=== PATIENT | female | born 1980 | race Caucasian/White ===

== ENCOUNTER 2024-02-09 12:54 | Outpatient (CLI) | payer MEDICARE, MEDICAID, SELFPAY | END 2024-02-09 12:55 | disposition home or self-care (01) | LOC: NFLDREF 02-13 05:50 | PROVIDERS: PCP Registered Nurse; Referring Provider Registered Nurse; Visit Provider Physician Assistant | DX: N39.0 Urinary tract infection, site not specified (principal); R35.0 Frequency of micturition | CPT/HCPCS: 87086; 87186 ==

== ENCOUNTER 2024-05-01 15:15 | Outpatient (RCR) | payer MEDICARE, MEDICAID, SELFPAY ==
--- NOTE | 2024-03-15 11:39 | OT.OPGNE2 ---
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 Date of Onset Medical/Functional History Medical History Reviewed Yes Prior Level of Function/Mobility Pt has been 06/09 supervision and assistance due to her congenital condition causing a baseline intellectual disability and low muscle tone . Prior Medical History Prior Medical History Pt moved from [facility], transferred documents refer to COVID infection in 2021, a lung mass in [address] scan. Autism and Myotonic Muscular Dystrophy are the dx driving the eval. 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 Objective Measures Shoulder Shoulder AROM shoulder flex to 90, passively ranged to 160, tight and not moving much. Cognitive Assessments Performed Oriented Patient oriented Person Vision/Hearing Vision Vision Changes Comments Dad reports Pt is fearful of walking over mady transitions, worries her depth perception is off. Pt holds paper up close to read. Balance Assessment Comments Balance Comments poor, uses walker but complains, uses transport chair when out of home. Assessment Assessment Assessment Pt is a 43 yr female who was referred to OT following new living situation after loss of her mother, and now living with father in [place]. PLOF unclear as father did not have much communication with her mother and Pt is unable to provide much history. Pt is currently max A for all bathing, dressing, toileting, etc, as well as dependent on caregivers for all IADLs. Pt has an intellectual disability , emotional, sweet and childlike, crying occasionally throughout session, giving hugs and affectionate touches. Pt very willing to participate and attentive during session. Pt able to state her name, birthday and write out her name and simple shapes when asked. Pt enjoys games, puzzles, books, and watching games shows. Pt uses a walker and transport WC for her main forms of mobility, doesn't walk farther than household distances and always with supervision. Pt is max A for bed mobility in her current basic bed and frame. Pt would benefit from skilled OT to address deficits. Occupational Therapy Treatment Plan - OP Potential Rehabilitation Potential Excellent Set Goals Goals Set with Patient No: with Dad Treatment Plan Treatment Plan Evaluation,Joint Mobilization, Manual Therapy,Therapeutic Exercise,Therapeutic Activities,Self-Care/Home Management,Caregiver Training, Education,Functional/Cognitive Skills Expected Frequency 1x Week Expected Duration 2-4 Weeks Certification Certification Statement I Certify That: Therapy Services Provided, Therapy Plan Established, Therapy Plan Reviewed Certification Information Clinic ID # [id number] Initial Certification Date 03/13/24 Recertification Due Date 06/11/24 Provider Signature Required Yes Provider Signature Shows Agreement With POC & Medical Necessity Physician NPI Number Write NPI# Here Physician Comment/Change Comment or Changes Physician Signature & Date Requested Please Sign/Date Here
== END 2024-05-29 14:55 | disposition home or self-care (01) ==
PROVIDERS: PCP Registered Nurse; Visit Provider Registered Nurse
DX: G71.11 Myotonic muscular dystrophy (principal); M43.6 Torticollis; Z74.1 Need for assistance with personal care; Z51.89 Encounter for other specified aftercare
CPT/HCPCS: 97110; 97116; 97140; 97162; 97166; 97530; 97535; X5282

== ENCOUNTER 2024-06-04 11:20 | Outpatient (CLI) | payer MEDICARE, MEDICAID, SELFPAY | END 2024-06-04 11:21 | disposition home or self-care (01) | PROVIDERS: PCP Registered Nurse; Visit Provider Registered Nurse | DX: G71.11 Myotonic muscular dystrophy (principal); R60.0 Localized edema | CPT/HCPCS: 80053; 83880 ==

== ENCOUNTER 2024-07-28 14:13 | Emergency (ER) | payer MEDICARE, MEDICAID, SELFPAY ==
[2024-07-28 14:26] VITALS: BP 131/89; PULSE 98; RESP 20; TEMP 36.3; O2SAT 90
--- NOTE | 2024-07-28 14:33 | ED_ITS ---
HPI - General Adult General Time Seen by Provider: 14:33 Date Seen: 07/28/24 Chief complaint: Diarrhea Stated complaint: Loose stools,vomiting, weakness Time Seen by Provider: 07/28/24 14:23 Source: patient, family and RN notes reviewed Mode of arrival: ambulatory Limitations: no limitations History of Present Illness HPI narrative: This 44-year-old female with intellectual disability and autism, underlying myotonic muscular dystrophy is brought in by her dad and stepmom with diarrhea, nausea vomiting and concern of dehydration. They when out to dinner night, overnight she started with vomiting and diarrhea. She had been able to take in about 3 oz of clear liquids but is now throwing that up. They have noticed no blood in the stool. Nobody else is sick at home. She has no recent antibiotic use, no history of C difficile. She historically is constipated with stools every 2-3 days. They do try to regulate with [id number] medicine and does seem to help. They do have concerns with her myotonic muscular dystrophy that she may be at higher risk for aspiration. She is not coughing. She did ask to lay down and take a nap today which is unusual. They are concerned that she has not been able to take any orals in and is getting dehydrated. She had 1 temperature of 99.8? but otherwise has not had any elevation of her temperature through this. She resides with her parents that are here. They have noted some occasional abdominal cramping but no complaints of any ongoing abdominal pain. Dad feels her belly always looks this distended, her step mom feels it is a little more bloated. Related Data Home Medications ?Medication ?Instructions ?Recorded ?Confirmed calcium carbonate (Tums) 200 mg PO QDAY 07/26/2407/15 psyllium husk 0.52 gram capsule 0.52 g PO QDAY 5 07/26/24 Previous Rx's ?Medication ?Instructions ?Recorded diaper,brief,adult,disposable #40 ea 01/13/24 (Fitted Briefs Medium) multivitamin with minerals-folic 1 tab PO QDAY #90 tab s 01/13/24 acid 120 mcg chewable tablet (Women's Multivitamin Gummies) Allergies Allergy/AdvReac Type Severity Reaction Status Date / Time panthenol Allergy Unknown Two Family Verified 07/28/24 16:49 Members Have Severe Allergy Review of Systems Status of ROS: Reports: 6 or more systems reviewed and unremarkable except as noted in History and below [facility] Medical History Chronic constipation ?K59.09 - Other constipation (ICD-10) Intellectual disability ?F79 - Unspecified intellectual disabilities (ICD-10) Autism ?F84.0 - Autistic disorder (ICD-10) Myotonic muscular dystrophy ?G71.11 - Myotonic muscular dystrophy (ICD-10) Pneumonia due to COVID-19 virus ?U07.1 - COVID-19 (ICD-10) ?J12.82 - Pneumonia due to coronavirus disease 2019 (ICD-10) Lung mass (06/18/21) ?R91.8 - Other nonspecific abnormal finding of lung field (ICD-10) Surgical History History of cataract surgery (2015) ?Z98.49 - Cataract extraction status, unspecified eye (ICD-10) History of local excision of skin lesion (06/21/23) ?Z98.890 - Other specified postprocedural states (ICD-10) Family History Paternal Grandfather Hx of CABG, Onset Age: 70 Breast cancer, Onset Age: 57 Paternal Grandmother Valvular heart disease, Onset Age: 75 Mother Myotonic muscular dystrophy Aunt Myotonic muscular dystrophy Aunt Myotonic muscular dystrophy Aunt Breast cancer, Onset Age: 55 Aunt Breast cancer, Onset Age: 55 Father Diabetes Social History Narrative: Single, lives with father and stepmom, disabled, no kids, mostly in wheelchair walks short distances with walker Nonsmoker No alcohol use No exercise What is your current living situation?: I have a place to live at present, but am concerned about future Problems where you live: no known problems In the past 12 months, utilities in danger of being shut off: no In past 12 months, lack of transportation kept you from medical appts, meetings, work, or getting things needed for daily living: no In the past 12 mos, have been you worried that your food would run out before you had money to buy more?: never true In the past 12 mos, the food you bought just didn't last and you didn't have money to buy more?: never true Smoking Status: Never smoker Do you use any of these nicotine containing products: None How often do you have a drink containing alcohol: never AUDIT-C Alcohol total score: 0 Non-prescribed substance use: denies use How often does anyone, including family, friends and others, physically hurt you : never How often does anyone, including family, friends and others, insult or talk down to you: never How often does anyone, including family, friends and others, threaten you with harm: never How often does anyone, including family, friends and others, scream or curse at you: never Health Related Social Needs: housing instability, housed, with risk of homelessness (Z59.811) Exam Const: Vital Signs, click to edit/add: Vital Signs - 24 hr 07/28/24 14:26 07/28/24 14:40 07/28/24 18:07 Temperature 97.3 F L 98.6 F Pulse Rate [Pulse Oximeter] 98 99 Respiratory Rate 20 18 Blood Pressure [Ri ght Upper Arm] 131/89 114/81 Pulse Oximetry 90 91 91 Oxygen Delivery Me thod Room Air Room Air 07/28/24 20:42 Temperature 99.3 F Pulse Rate [Pulse Oximeter] 98 Respiratory Rate 14 Blood Pressure [Ri ght Upper Arm] 105/63 Pulse Oximetry 91 Oxygen Delivery Me thod Room Air This 44-year-old female is alert, interactive, no apparent distress but anxious. Sclerae clear, is conversive, speech at baseline per parents. Lungs sound clear but has poor air entry. Certainly do not notice city tachypnea or accessory muscle use. CV regular rate and rhythm, no murmur, normal S1-S2, no S3-S4 heard. Abdomen seems mildly distended but does not seem to be tender, no rebound or guarding, no organomegaly noted. I really do not hear any bowel sounds. Documenting provider has reviewed patient's vital signs: yes Course Course ED Course: Stool specimen has already been provided, have ordered C difficile and stool cultures. We will get a portable chest x-ray to start, may need to do advanced imaging of both lungs and abdomen potentially. Parents and I discussed plain abdominal imaging with flat and upright verses moving to CT based on her lab results. Will place an IV, get appropriate labs and initiate IV fluids. Certainly infectious etiology like viral gastroenteritis needs to be considered. This could be something more significant like C difficile colitis or other colitis forms. Abdomen at this time does not seem to be tender, doubt surgical abdomen. Reevaluation(s) Time of Reevaluation #1: 15:47 Reevaluation #1: Reviewed that we will be proceeding with flat and upright imaging. If there is anything concerning there, they do understand that we may need to go with CT imaging. Her C difficile is negative, lactate and white blood count are normal. She is having some ongoing nausea, will order some Zofran. Her fluids have just been recently started. Time of Reevaluation #2: 16:29 Reevaluation #2: Reviewed with parents that her plain abdominal imaging is showing concerning bowel pattern. Will proceed with CT abdomen pelvis with IV contrast. Time of Reevaluation #3: 17:40 Reevaluation #3: Have reviewed CT findings including the incidental ovarian findings. This CT was not compared to the CT from 2021 with this left lung lesion was noted. In any event, she does have pneumonia which is likely aspiration. She has mechanical small-bowel obstruction. The understand that she should be hospitalized where there is multi-specialty care, should she require surgery she is not a candidate for us here. Will be initiating Zosyn. They would like to look at [facility] for transfer if possible; we did discuss the difficulty in finding facility acceptance due to capacity at outside institutions frequently. They understand that we will look to other organizations if [facility] has no capacity. Consultations Consultation #1: Reviewed this case with our surgeon on-call Dr. Soni. She agrees that this patient has complexities and comorbid conditions that we really should consider transfer. If patient were to be surgical, she is a very poor surgical candidate for us here. Time: 17:28 Consultation #2: Have reviewed this case with [facility] whom is taking triage for transfers. I will be speaking to general surgery. If General surgery accepts, we will talk to Yina again and patient will be transferred to [facility]. 6:17 p.m.: Did speak with general surgeon on-call Dr. Carranza at [facility]. We have reviewed the case, rationale for transfer. They do conceivably have higher level of care for anesthesia management, postoperative management if this should go that route. He does accept. Their transfer center will be contacting [facility] bai. Time: 18:08 Vital Signs Vital signs: Initial Vital Signs Temperature 97.3 F L 07/28/24 14:26 Temperature Source Temporal Artery Scan 07/28/24 14:26 Pulse Rate 98 07/28/24 14:26 Respiratory Rate 20 07/28/24 14:26 Blood Pressure 131/89 07/28/24 14:26 Blood Pressure Mean 103 07/28/24 14:26 Blood Pressure Position Supine 07/28/24 14:26 Pulse Oximetry 90 07/28/24 14:26 Oxygen Delivery Method Room Air 07/28/24 14:26 Vital Signs Temperature 97.3 F L 07/28/24 14:26 Pulse Rate 98 07/28/24 14:26 Respiratory Rate 20 07/28/24 14:26 Blood Pressure 131/89 07/28/24 14:26 Pulse Oximetry 90 07/28/24 14:26 Oxygen Delivery Method Room Air 07/28/24 14:26 Temperature 99.3 F 07/28/24 20:42 Pulse Rate 98 07/28/24 20:42 Respiratory Rate 14 07/28/24 20:42 Blood Pressure 105/63 07/28/24 20:42 Pulse Oximetry 91 07/28/24 20:42 Oxygen Delivery Method Room Air 07/28/24 20:42 Medications Administered Medications: Discontinued Medications Generic Name Dose Route Start Last Admin Trade Name Freq PRN Reason Stop Dose Admin Sodium Chloride 1,000 mls @ 500 mls/hr 07/28/24 14:41 07/28/24 18:37 0.9 % Sodium Chloride 1000 Ml IV 07/28/24 16:40 Infused .Q2H GAYLA Infusion Piperacillin Sod/Tazobactam 100 mls @ 200 mls/hr 07/28/24 17:40 07/28/24 18:38 Sod 3.375 gm/ Sodium Chloride IVPB 07/28/24 17:41 Infused ONCE ONE Infusion Ondansetron HCl 4 mg 07/28/24 15:49 07/28/24 16:01 Ondansetron 2 Mg/Ml Inj IVP 07/28/24 15:50 4 mg ONCE ONE Administration Medical Decision Making Lab Data Lab results reviewed: Yes I reviewed the patient's lab results Labs: Lab Results 07/28/24 07/28/24 Range/Units 14:43 15:02 WBC 10.75 (4.50-11.00) K/uL RBC 6.11 H (4.00-5.20) m/uL Hgb 18.0 H (12.0-16.0) gm/dL Hct 55.1 H (33.0-51.0) % MCV 90 (80-100) fL MCH 30 (26-34) pg MCHC 33 (32-36) gm/dL RDW Coeff of Calvin 13.6 (11.5-15.5) % Plt Count 293 (140-440) K/uL Neut % (Auto) 67.5 (42.0-72.0) % Lymph % (Auto) 14.6 L (20-44) % Curry % (Auto) 16.5 H (0.0-11.0) % Eos % (Auto) 0.5 (0.0-7.0) % Baso % (Auto) 0.2 (0.0-3.0) % Neut # (Auto) 7.27 H (1.7-7.0) K/uL Lymph # (Auto) 1.60 (0.90-2.90) K/uL Curry # (Auto) 1.80 H (0.00-0.90) K/UL Eos # (Auto) 0.05 (0.00-0.50) K/uL Baso # (Auto) 0.02 (0.00-0.30) K/uL Abs Immat Gran (auto) 0.07 (0.00-0.30) K/uL Imm/Tot Granulo (auto) 0.7 % Sodium 140 (135-149) mmol/L Potassium 3.6 (3.6-5.1) mmol/L Chloride 103 (96-114) mmol/L Carbon Dioxide 22 (20-32) mmol/L Anion Gap 15 (7-15) mEq/L BUN 26 H (5-24) mg/dL Creatinine 0.6 (0.5-1.5) mg/dL Estimated GFR 113 ml/min Glucose 147 H (60-115) mg/dL Lactate 1.5 (0.5-1.9) mmol/L Calcium 9.4 (8.4-10.6) mg/dL Total Bilirubin 1.0 (0.1-1.5) mg/dL AST 33 (12-35) U/L ALT 48 H (4-35) U/L Alkaline Phosphatase 122 (40-150) U/L C-Reactive Protein 2.2 H (0.5-1.0) mg/dL Total Protein 8.6 H (6.0-8.3) g/dL Albumin 4.8 (3.3-5.0) g/dL Stl C. diff Tox B Gene Negative (Negative) Stl C. diff [id number] PRESUMPTIVE NEGATIVE (Negative) Imaging Data Chest x-ray: Attestation: I have reviewed the pertinent imaging results. Radiologist's impression: Patient: JERROD SIMPSON Facility:?[facility] Patient ID:?[id number] Site Patient ID:?[id number]. Site :?1980 Study:?XRay-Chest PORTABLE-07/28/2024 2:52:38 PM Ordering Physician:Omar Sood Final Report: INDICATION: Nausea/vomiting TECHNIQUE: Chest 1 view COMPARISON: 06/18/2021 FINDINGS: Cardiovascular and mediastinum: Heart size and vasculature are normal in caliber and appearance. Lungs and pleural spaces: Lungs are clear. No sign of infiltrate or mass. No sign of pleural effusion. No pneumothorax. Bones and soft tissues: No significant findings. IMPRESSION: No acute findings. Chronic mild atelectasis left lower lobe. Dictated by Javier Horan MD @ 07/28/2024 3:19:47 PM (Electronic Signature) Abdominal x-ray: Attestation: I have reviewed the pertinent imaging results. My impression: My visualization of her abdominal imaging shows air-fluid levels, some dilated central small bowel, feel the pattern is concerning. Did ask nursing staff to not give patient ice chips based on review of this. Await Radiology over-read. Radiologist's impression: Patient: JERROD SIMPSON Facility:?[facility] Patient ID:?[id number] Site Patient ID:?[id number]. Site :?1980 Study:?XRay-Abdomen/Pelvis FLAT AND UPRIGHT-07/28/2024 4:02:02 PM Ordering Physician:?Vane Sood Final Report: INDICATION: Nausea, vomiting, diarrhea. TECHNIQUE: Abdomen and pelvis 2 view(s) COMPARISON: None. FINDINGS/IMPRESSION: Multiple dilated loops of small bowel throughout the abdomen with air-fluid levels, concerning for small bowel obstruction. No evidence of pneumoperitoneum. Patchy opacities in the left lung base, may reflect atelectasis versus pneumonia. Multilevel degenerative changes of the visualized spine. Dictated by Josr Hernandez MD @ 07/28/2024 4:21:03 PM (Electronic Signature) CT scan - abdomen: Attestation: I have reviewed the pertinent imaging results. Radiologist's impression: Patient: JERROD SIMPSON Facility:?[facility] Patient ID:?[id number] Site Patient ID:?[id number]. Site :?1980 Study:?XRay-Abdomen/Pelvis FLAT AND UPRIGHT-07/28/2024 4:02:02 PM Ordering Physician:?Vane Sood Final Report: INDICATION: Nausea, vomiting, diarrhea. TECHNIQUE: Abdomen and pelvis 2 view(s) COMPARISON: None. FINDINGS/IMPRESSION: Multiple dilated loops of small bowel throughout the abdomen with air-fluid levels, concerning for small bowel obstruction. No evidence of pneumoperitoneum. Patchy opacities in the left lung base, may reflect atelectasis versus pneumonia. Multilevel degenerative changes of the visualized spine. Dictated by Josr Hernandez MD @ 07/28/2024 4:21:03 PM (Electronic Signature) Discharge Plan Discharge Clinical Impression: SBO (small bowel obstruction), Aspiration pneumonia, Myotonic muscular dystrophy Patient Disposition: [facility] Discharge Location: [facility] Condition: Unchanged
[2024-07-28 14:40] VITALS: O2SAT 91
--- NOTE | 2024-07-28 14:40 | CRLHL7_ITS ---
For Patients: As a result of the Cures Act, medical imaging exams and procedure reports are released immediately into your electronic medical record. You may view this report before your referring provider. If you have questions, please contact your health care provider. INDICATION: Nausea/vomiting TECHNIQUE: Chest 1 view COMPARISON: 06/18/2021 FINDINGS: Cardiovascular and mediastinum: Heart size and vasculature are normal in caliber and appearance. Lungs and pleural spaces: Lungs are clear. No sign of infiltrate or mass. No sign of pleural effusion. No pneumothorax. Bones and soft tissues: No significant findings. IMPRESSION: No acute findings. Chronic mild atelectasis left lower lobe. Dictated by Javier Horan MD @ 07/28/2024 3:19:47 PM (Electronically Signed)
[2024-07-28 15:13] LABS: Lactate* 1.5 mmol/L (0.5-1.9)
[2024-07-28 15:16] LABS: Basophils Absolute Auto 0.02 K/uL (0.00-0.30); Basophils Percent Auto 0.2 % (0.0-3.0); Eosinophils Absolute Auto 0.05 K/uL (0.00-0.50); Eosinophils Percent Auto 0.5 % (0.0-7.0); Hematocrit 55.1 % (33.0-51.0); Immature Granulocytes Abs Auto 0.07 K/uL (0.00-0.30); Immature Granulocytes Pct Auto 0.7 %; Lymphocytes Percent Auto 14.6 % (20-44); Mean Corpuscular HGB Conc 33 gm/dL (32-36); Mean Corpuscular Hemoglobin 30 pg (26-34); Mean Corpuscular Volume 90 fL (80-100); Monocytes Percent Auto 16.5 % (0.0-11.0); Neutrophils Absolute Auto 7.27 K/uL (1.7-7.0); Neutrophils Percent Auto 67.5 % (42.0-72.0); Platelet Count* 293 K/uL (140-440); RDW Coefficient of Variation % 13.6 % (11.5-15.5); Red Blood Count 6.11 m/uL (4.00-5.20); White Blood Count* 10.75 K/uL (4.50-11.00)
[2024-07-28 15:26] LABS: Slide Review Reflex No
[2024-07-28 15:28] LABS: Chloride* 103 mmol/L (96-114)
[2024-07-28 15:29] LABS: Albumin* 4.8 g/dL (3.3-5.0); Potassium* 3.6 mmol/L (3.6-5.1); Sodium* 140 mmol/L (135-149)
[2024-07-28 15:32] LABS: Alanine Aminotransferase* 48 U/L (4-35); Alkaline Phosphatase* 122 U/L (40-150); Anion Gap 15 mEq/L (7-15); Aspartate Amino Transferase* 33 U/L (12-35); Blood Urea Nitrogen* 26 mg/dL (5-24); Carbon Dioxide* 22 mmol/L (20-32); Creatinine* 0.6 mg/dL (0.5-1.5); Estimated Glomerular Filt Rate 113 ml/min; Total Protein* 8.6 g/dL (6.0-8.3)
[2024-07-28 15:33] LABS: Calcium* 9.4 mg/dL (8.4-10.6); Glucose* 147 mg/dL (60-115)
[2024-07-28 15:35] LABS: C Reactive Protein* 2.2 mg/dL (0.5-1.0)
[2024-07-28 15:40] LABS: C.Difficile Negative (Negative); CDIFFEPI 027 PRESUMPTIVE NEGATIVE (Negative)
--- NOTE | 2024-07-28 15:44 | CRLHL7_ITS ---
For Patients: As a result of the Century Cures Act, medical imaging exams and procedure reports are released immediately into your electronic medical record. You may view this report before your referring provider. If you have questions, please contact your health care provider. INDICATION: Nausea, vomiting, diarrhea. TECHNIQUE: Abdomen and pelvis 2 view(s) COMPARISON: None. FINDINGS/IMPRESSION: Multiple dilated loops of small bowel throughout the abdomen with air-fluid levels, concerning for small bowel obstruction. No evidence of pneumoperitoneum. Patchy opacities in the left lung base, may reflect atelectasis versus pneumonia. Multilevel degenerative changes of the visualized spine. Dictated by Josr Hernandez MD @ 07/28/2024 4:21:03 PM (Electronically Signed)
[2024-07-28] MEDS: 0.9 % SODIUM CHLORIDE 1000 ml 1,000 ML 500 ML IV (15:45)
[2024-07-28] MEDS: ONDANSETRON 2 MG/ML inj 4 MG IVP (16:01)
--- NOTE | 2024-07-28 16:30 | CRLHL7_ITS ---
For Patients: As a result of the Century Cures Act, medical imaging exams and procedure reports are released immediately into your electronic medical record. You may view this report before your referring provider. If you have questions, please contact your health care provider. INDICATION: Nausea vomiting and diarrhea. Abdominal pain. TECHNIQUE: Multiplanar CT examination of the abdomen and pelvis was performed after the administration of 69 mL Isovue 370 intravenous contrast. COMPARISON: Same day abdominal radiographs. FINDINGS: Lower chest: Normal heart size. No pleural effusions or pneumothorax. 2.1 cm left lower lobe mass. Pulmonary vascular congestion. Left lower lobe focal consolidation and tree-in-bud nodularity. Small hiatal hernia. Liver: Diffuse hepatic steatosis. Gallbladder: Cholelithiasis. No gallbladder wall thickening. Biliary: Unremarkable. Pancreas: Within normal limits. Spleen: Unremarkable. Adrenal glands: Unremarkable. Renal/ureters/bladder: Normal in size and symmetrically enhancing. No obstructive uropathy. No hydronephrosis or obstructive urinary calculi. Bilateral renal hypodensities, most of which are too small to characterize, probable simple renal cysts. The ureters appear unremarkable. The bladder is within normal limits. Pelvis: 6.6 x 5.3 cm left adnexal soft tissue mass, appears separate from the adjacent uterus. Simple appearing 5.0 cm right ovarian cyst. Gastrointestinal: There are dilated loops of small bowel with air-fluid levels, measuring up to 3.4 cm, with a suspected transition point in the mid abdomen (2:57). Mild wall hyperenhancement. No pneumatosis intestinalis. Normal appendix. No significant colonic diverticulosis. Mild colonic stool burden. Vasculature: No aortic aneurysm. The portal vein remains patent. No significant atherosclerotic calcifications. No portal venous gas. Lymph nodes: No pathologic lymphadenopathy by size criteria. Peritoneum: No free fluid or pneumoperitoneum. No drainable fluid collections. Abdominal wall/soft tissues: Unremarkable. Degenerative changes of the visualized thoracolumbar spine. Bones: No acute osseous abnormalities. IMPRESSION: 1. Findings concerning for a mechanical small bowel obstruction, with a suspected transition point in the mid abdomen. No pneumatosis intestinalis, portal venous gas or pneumoperitoneum. 2. Suspected left lower lobe pneumonia. 3. Left lower lobe pulmonary mass, indeterminate on this nondedicated examination, measuring 2.1 cm. Consider follow-up with a dedicated contrast-enhanced CT chest in 6-8 weeks, or following the completion of treatment for the patient`s suspected pneumonia, to assess stability or resolution. PET-CT and histologic tissue analysis may also be considered. 4. 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 Right ovarian cystic lesion measuring 5.0 cm. Recommend further evaluation with a nonemergent, outpatient contrast-enhanced pelvic MRI for improved characterization. Please note that all CT scans at this facility use dose modulation, iterative reconstruction, and/or weight-based dosing when appropriate to reduce radiation dose to as low as reasonably achievable. Dictated by Uche Agudelo MD @ 07/28/2024 5:25:05 PM (Electronically Signed)
[2024-07-28] MEDS: PIPERACILLIN/TAZOBACTAM 3.375 GM in 0.9 % SODIUM CHLORIDE Mini-bag 100 ML IVPB (17:56)
[2024-07-28 18:07] VITALS: BP 114/81; PULSE 99; RESP 18; TEMP 37; O2SAT 91
[2024-07-28 20:42] VITALS: BP 105/63; PULSE 98; RESP 14; TEMP 37.4; O2SAT 91
== END 2024-07-28 20:44 | disposition short-term general hospital (02) ==
PROVIDERS: Emergency Provider Family Medicine; PCP Family Medicine
DX: J69.0 Pneumonitis due to inhalation of food and vomit (principal); K56.609 Unspecified intestinal obstruction, unspecified as to partial versus complete obstruction; G71.11 Myotonic muscular dystrophy
CPT/HCPCS: 36415; 71045; 74019; 74177; 80053; 83605; 85025; 86140; 87045; 87046; 87427; 87493; 94761; 96365; 96375; 99285; J2405; J2543; J7030; Q9967

== ENCOUNTER 2024-07-28 20:35 | Outpatient (CLI) | payer MEDICARE, MEDICAID, SELFPAY | END 2024-07-28 20:36 | disposition home or self-care (01) | LOC: AMB 08-01 11:44 | PROVIDERS: PCP Family Medicine; Visit Provider Family Medicine | DX: R19.7 Diarrhea, unspecified (principal); R11.10 Vomiting, unspecified | CPT/HCPCS: A0425; A0429 ==

== ENCOUNTER 2024-08-12 15:47 | Emergency (ER) | payer MEDICARE, MEDICAID, SELFPAY ==
--- OUTSIDE RECORDS SUMMARY | 2024-07-28 21:10 | XMS_ITS | Encounter Summary ---
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 99.5 ??F (37.5 ??C) Temp src: Oral BP: 103/55 Pulse: 88 Resp: 16 SpO2: 93 % O2 Device: None (Room air) Oxygen Delivery: 1 LPM Vitals: 07/28/24 2124 Weight: 63 kg (138 lb 14.2 oz) Vital Signs with Ranges Temp: [96.9 ??F (36.1 ??C)-99.5 ??F (37.5 ??C)] 99.5 ??F (37.5 ??C) Pulse: [69-88] 88 Resp: [15-18] 16 BP: (103-136)/(54-66) 103/55 SpO2: [91 %-96 %] 93 % I/O last 3 completed shifts: In: 769 [P.O.:180; I.V.:589] Out: - GEN: Alert, awake, appears comfortable, NAD. HEENT: Normocephalic/atraumatic, no scleral icterus, no nasal discharge, mouth moist. CV: Regular rate and rhythm, no murmur or JVD. S1 + S2 noted, no S3 or S4. LUNGS: Clear to auscultation bilaterally without rales/rhonchi/wheezing/retractions. Symmetric chest rise on inhalation noted. ABD: Active bowel sounds, soft, non-tender/non-distended. No rebound/guarding/rigidity. EXT: No edema or cyanosis. Hands/feet warm to touch with good signs of peripheral perfusion. No joint synovitis noted. SKIN: Dry to touch, no exanthems noted in the visualized areas. NEURO: Symmetric muscle strength, sensation to touch grossly intact. No new focal deficits appreciated. Medications Current Facility-Administered Medications Medication Dose Route Frequency Provider Last Rate Last Admin Current Facility-Administered Medications Medication Dose Route Frequency Provider Last Rate Last Admin piperacillin-tazobactam (ZOSYN) 3.375 g vial to attach to NS 100 mL bag 3.375 g Intravenous Q6H Toby Finch MD 3.375 g at 08/02/24 1222 sodium chloride (PF) 0.9% PF flush 3 mL 3 mL Intracatheter Q8H Toby Wright MD 3 mL at 08/02/24 1222 Data Recent Labs Lab 08/02/24 0715 08/01/24200708/01/24 1008 07/30/24 1701 07/30/24 0809 07/30/24 0209 07/29/24 0738 WBC 17.8* -- 18.5* -- 9.8 -- 7.6 HGB 15.1 -- 15.2 -- 15.5 -- 16.6* MCV 86 -- 88 -- 91 -- 92 PLT 249 -- 228 -- 266 -- 250 NA -- -- 139 -- 155* -- 146* POTASSIUM 4.0 4.5 3.4 < > 3.4 3.4 < > 2.9* CHLORIDE -- -- 109* -- 116* -- 107 CO2 -- -- 22 -- 23 -- 22 BUN -- -- 3.5* -- 15.1 -- 16.6 CR -- -- 0.30* -- 0.39* -- 0.46* ANIONGAP -- -- 8 -- 16* -- 17* CELINA -- -- 8.2* -- 9.1 -- 8.7* GLC -- -- 78 -- 127* -- 148* ALBUMIN -- -- -- -- -- -- 3.5 < > = values in this interval not displayed. No results found for this or any previous visit (from the past 24 hours). * Frantz Crespo MD - 08/02/2024 9:27 AM CDT [facility] General Surgery Progress Note Assessment and Plan: Assessment: Sabine Olmos is a 44 year old female presented with nausea and vomiting. Abd CT was concerning for ileus vs small bowel obstruction. Also showed left lower pneumonia. - GG challenge shows contrast into colon Plan: Continue conservative management Regular diet No surgical intervention at this time, surgery will sign off, call if any questions. Agree; is up in chair tolerating solids, no surgical issues, let us know if we can be of assistance. Interval History: Pt awake, no family present. Denies pain. Was able to eat some regular food yesterday. Continues tohave bowel movements Physical Exam: Temp: 99.5 ??F (37.5 ??C) Temp src: Oral BP: 103/55 Pulse: 88 Resp: 16 SpO2: 93 % O2 Device: None (Room air) Oxygen Delivery: 1 LPM I/O last 3 completed shifts: In: 769 [P.O.:180; I.V.:589] Out: - Constitutional: awake, no distress Abdomen: non tender Data: Data Recent Labs Lab 08/02/24 0715 08/01/24200708/01/24 1008 07/30/24 1701 07/30/24 0809 07/30/24 0209 07/29/24 0738 WBC 17.8* -- 18.5* -- 9.8 -- 7.6 HGB 15.1 -- 15.2 -- 15.5 -- 16.6* MCV 86 -- 88 -- 91 -- 92 PLT 249 -- 228 -- 266 -- 250 NA -- -- 139 -- 155* -- 146* POTASSIUM 4.0 4.5 3.4 < > 3.4 3.4 < > 2.9* CHLORIDE -- -- 109* -- 116* -- 107 CO2 -- -- 22 -- 23 -- 22 BUN -- -- 3.5* -- 15.1 -- 16.6 CR -- -- 0.30* -- 0.39* -- 0.46* ANIONGAP -- -- 8 -- 16* -- 17* CELINA -- -- 8.2* -- 9.1 -- 8.7* GLC -- -- 78 -- 127* -- 148* ALBUMIN -- -- -- -- -- -- 3.5 < > = values in this interval not displayed. Jacey Fontenot PA-C [facility] Text page: [phone] 8-4 pm After 4 pm call [phone] * Harley Lee, PT - 08/01/2024 4:05 PM CDT 08/01/24 4270 Appointment Info Signing Clinician's Name / Credentials (PT) Harley Lee DPT Living Environment Living Environment Comments Pt lives in home with parents, ramp to enter. Mother reports use of FWWfor short distance mobility, use of w/c for majority of the day. All needs on main level. 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 Existing Precautions/Restrictions fall Cognition Affect/Mental Status (Cognition) unable/difficult to assess Orientation Status (Cognition) refused to attempt Follows Commands (Cognition) physical/tactile prompts required;repetition of directions required;verbal cues/prompting required Behavioral Issues uncooperative;other (see comments) (mother reports this is baseline for patient) Pain Assessment Patient Currently in Pain No Range of Motion (ROM) ROM Comment B LE WFL Strength (Manual Muscle Testing) Strength Comments functionally demonstrated >3/5 B LE strength Bed Mobility Comment, (Bed Mobility) [place] rolling, supine to sit transfer Transfers Comment, (Transfers) CGA with FWW Gait/Stairs (Locomotion) Distance in Feet (Gait) 12 Pattern (Gait) step-through Deviations/Abnormal Patterns (Gait) base of support, wide;gait speed decreased;stride length decreased Comment, (Gait/Stairs) CGA with FWW Balance Balance Comments good sitting; fair+ standing with FWW Clinical Impression Criteria for Skilled Therapeutic Intervention Yes, treatment indicated PT Diagnosis (PT) decreased functional mobility Influenced by the following impairments decreased activity tolerance, balance Functional limitations due to impairments impaired bed mobility, transfers, ambulation Clinical Presentation (PT Evaluation Complexity) stable Clinical Presentation Rationale Clinical judgement Clinical Decision Making (Complexity) low complexity Planned Therapy Interventions (PT) balance training;bed mobility training;gait training;home exercise program;patient/family education;postural re- education;strengthening;transfer training;progressive activity/exercise;wheelchair management/propulsion training Risk & Benefits of therapy have been explained evaluation/treatment results reviewed;care plan/treatment goals reviewed;current/potential barriers reviewed;risks/benefits reviewed;participants voiced agreement with care plan;participants included;patient;mother PT Total Evaluation Time PT Eval, Low Complexity Minutes ([id number]) 10 Physical Therapy Goals PT Frequency Daily PT Predicted Duration/Target Date for Goal Attainment 08/03/24 PT Goals Bed Mobility;Transfers;Gait;Wheelchair Mobility PT: Bed Mobility Supervision/stand-by assist;Supine to/from sit PT: Transfers Supervision/stand-by assist;Sit to/from stand;Assistive device PT: Gait Supervision/stand-by assist;Assistive device;50 feet PT: Wheelchair Mobility 50 feet;Caregiver Min assist;manual wheelchair PT Discharge Planning PT Plan progress ind with transfers, inc ambulation distance as able; w/c mobility if present PT Discharge Recommendation (DC Rec) home with assist;home with home care physical therapy PT Rationale for DC Rec Anticipate pt to discharge home with support from family, currently Ax1 with FWW for short distance activity. Pt would benefit from HHPT if family interested referral. PT Brief overview of current status Ax1 with FWW PT Total Distance Amb During Session (feet) 30 Physical Therapy Time and Intention Total Session Time (sum of timed and untimed services) 10 * José Luis Valderrama MD - 08/01/2024 1:20 PM CDT [facility] Hospitalist Progress Note Provider : José Luis Valderrama MD, MD Date of Service (when I saw the patient): 08/01/2024 Assessment & Plan Sabine Olmos is a 44 year old female admitted on 07/28/2024. 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 She was sent to the ED at outside facility for nausea and vomiting. Parents report that patient started throwing up 2 nights ago. They report about 8 episodes of nonbloody nonbilious emesis.He also reports that patient has had diarrhea since that time. They report the patient typically has a bowel movement every other day with a chunk of hard stool. They were concerned the patient was getting dehydrated so they sent patient to the ED at outside facility. At outside facility, CT vital signs were fairly unremarkable except for O2 saturation of 90% on room air. CBC was unremarkable. CMP was also unremarkable. CRP was 2.25. X-ray of the abdomen showed multiple dilated loops of small bowel throughout the abdomen with air-fluid levels concerning for small bowel obstruction. CT confirmed mechanical small bowel obstruction with suspected transition point in the mid abdomen with no pneumatosis intestinalis, portal venous gas, or pneumoperitoneum. CT also showed suspected left lower lobe pneumonia. Also showed left lower lobe pulmonary mass measuring about 2.1 cm. Also showed left ovarian soft tissue mass measuring 6.6 cm. There was also a right ovarian cystic lesion measuring 5.0cm. Patient was admitted and managed conservatively. Patient denies any pain. Nausea/vomiting/diarrhea likely due to enteritis -Patient with nausea and vomiting and diarrhea. Presented to outside facility due to concern for dehydration. CT showing mechanical small bowel obstruction with suspected transition point in the mid abdominal. Patient feeling better. -Patient improving with conservative management -Diet advanced to regular diet today -Will consult PT -Likely discharge tomorrow Probable aspiration pneumonia: Patient with left lower lobe infiltrate concerning for pneumonia. Inthe context of recurrent nausea and vomiting. -Continue Zosyn. Day #4 Left lower lobe mass: Patient with finding of 2.1 cm left lower lobe mass on CT. Left ovarian soft tissue mass measuring 6.6 cm: Noted on CT -Outpatient follow-up with further imaging. 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 -Fall precautions Autism Baseline cognitive impairment Frequent reorientation Fall precautions Diet: clear liquid diet DVT Prophylaxis: Pneumatic Compression Devices Boyce Catheter: Not present Lines: None Cardiac Monitoring: None Code Status: Full Code Code Status: Full Code Medically Ready for Discharge: Anticipated in 2-4 Days José Luis Valderrama MD Interval History Patient seen and examined. Chart reviewed. Also discussed with patient's dad at bedside. Patient unable to provide reliable history. Per her dad, patient doing okay. Tolerating diet. -Data reviewed today: I reviewed all new labs and imaging results over the last 24 hours. I personally reviewed Physical Exam Temp: 98.6 ??F (37 ??C) Temp src: Axillary BP: 129/66 Pulse: 74 Resp: 18 SpO2: 92 % O2 Device: None(Room air) Oxygen Delivery: 1 LPM Vitals: 07/28/242123 Weight: 63 kg (138 lb 14.2 oz) Vital Signs with Ranges Temp: [98.2 ??F (36.8 ??C)-98.6 ??F (37 ??C)] 98.6 ??F (37 ??C) Pulse: [70-74] 74 Resp: [16-18] 18 BP: (115-137)/(63-75) 129/66 SpO2: [92 %-94 %] 92 % I/O last 3 completed shifts: In: 2140 [P.O.:940; I.V.:1200] Out: - GEN: Alert, awake, appears comfortable, NAD. HEENT: Normocephalic/atraumatic, no scleral icterus, no nasal discharge, mouth moist. CV: Regular rate and rhythm, no murmur or JVD. S1 + S2 noted, no S3 or S4. LUNGS: Clear to auscultation bilaterally without rales/rhonchi/wheezing/retractions. Symmetric chest rise on inhalation noted. ABD: Active bowel sounds, soft, non-tender/non-distended. No rebound/guarding/rigidity. EXT: No edema or cyanosis. Hands/feet warm to touch with good signs of peripheral perfusion. No joint synovitis noted. SKIN: Dry to touch, no exanthems noted in the visualized areas. NEURO: Symmetric muscle strength, sensation to touch grossly intact. No new focal deficits appreciated. Medications Current Facility-Administered Medications Medication Dose Route Frequency Provider Last Rate Last Admin lactated ringers infusion Intravenous Continuous Toby Finch MD 100 mL/hr at 06/18/25 0534 New Bag at 08/01/24 0534 Current Facility-Administered Medications Medication Dose Route Frequency Provider Last Rate Last Admin piperacillin-tazobactam (ZOSYN) 3.375 g vial to attach to NS 100 mL bag 3.375 g Intravenous Q6H Toby Finch MD 3.375 g at 08/01/24 1155 potassium chloride 10 mEq in 100 mL sterile water infusion 10 mEq Intravenous Q1H José Luis Valderrama MD 100 mL/hr at 08/01/24 1319 10 mEq at 08/01/24 1319 sodium chloride (PF) 0.9% PF flush 3 mL 3 mL Intracatheter Q8H [facility] Toby Finch MD 3 mL at 08/01/24 0533 Data Recent Labs Lab 08/01/24 1008 07/31/24 0212 07/30/24 1701 07/30/24 0809 07/30/24 0209 07/29/24 0738 WBC 18.5* -- -- 9.8 -- 7.6 HGB 15.2 -- -- 15.5 -- 16.6* MCV 88 -- -- 91 -- 92 PLT 228 -- -- 266 -- 250 NA 139 -- -- 155* -- 146* POTASSIUM 3.4 4.8 3.1* 3.4 3.4 < > 2.9* CHLORIDE 109* -- -- 116* -- 107 CO2 22 -- -- 23 -- 22 BUN 3.5* -- -- 15.1 -- 16.6 CR 0.30* -- -- 0.39* -- 0.46* ANIONGAP 8 -- -- 16* -- 17* CELINA 8.2* -- -- 9.1 -- 8.7* GLC 78 -- -- 127* -- 148* ALBUMIN -- -- -- -- -- 3.5 < > = values in this interval not displayed. No results found for this or any previous visit (from the past 24 hours). * Jacey Fontenot PA-C - 08/01/2024 9:46 AM CDT [facility] General Surgery Progress Note Assessment and Plan: Assessment: Sabine Olmos is a 44 year old female presented with nausea and vomiting. Abd CT was concerning for ileus vs small bowel obstruction. Also showed left lower pneumonia. - GG challenge shows contrast into colon Plan: Continue conservative management Trial regular diet No surgical intervention at this time Interval History: Pt sleeping, father at bedside. Discussed care with father, who reports yesterday went well. She was tolerating full liquids, wanting more food choices. She has had several loose stools, some incontinent. No pain, no nausea or vomiting. Physical Exam: Temp: 98.6 ??F (37 ??C) Temp src: Axillary BP: 129/66 Pulse: 74 Resp: 18 SpO2: 93 % O2 Device: Nasal cannula Oxygen Delivery: 1 LPM I/O last 3 completed shifts: In: 2140 [P.O.:940; I.V.:1200] Out: - Constitutional: sleeping Abdomen: not examined Data: Data Recent Labs Lab 07/31/24 0212 07/30/24 1701 07/30/24 0809 07/30/24 0209 07/29/24 0738 WBC -- -- 9.8 -- 7.6 HGB -- -- 15.5 -- 16.6* MCV -- -- 91 -- 92 PLT -- -- 266 -- 250 NA -- -- 155* -- 146* POTASSIUM 4.8 3.1* 3.4 3.4 < > 2.9* CHLORIDE -- -- 116* -- 107 CO2 -- -- 23 -- 22 BUN -- -- 15.1 -- 16.6 CR -- -- 0.39* -- 0.46* ANIONGAP -- -- 16* -- 17* CELINA -- -- 9.1 -- 8.7* GLC -- -- 127* -- 148* ALBUMIN -- -- -- -- 3.5 < > = values in this interval not displayed. Jacey Fontenot PA-C [facility] Text page: [phone] 8-4 pm After 4 pm call [phone] * José Luis Valderrama MD - 07/31/2024 11:00 AM CDT [facility] Hospitalist Progress Note Provider : José Luis Valderrama MD, MD Date of Service (when I saw the patient): 07/31/2024 Assessment & Plan Sabine Olmos is a 44 year old female admitted on 07/28/2024. 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 She was sent to the ED at outside facility for nausea and vomiting. Parents report that patient started throwing up 2 nights ago. They report about 8 episodes of nonbloody nonbilious emesis.He also reports that patient has had diarrhea since that time. They report the patient typically has a bowel movement every other day with a chunk of hard stool. They were concerned the patient was getting dehydrated so they sent patient to the ED at outside facility. At outside facility, CT vital signs were fairly unremarkable except for O2 saturation of 90% on room air. CBC was unremarkable. CMP was also unremarkable. CRP was 2.25. X-ray of the abdomen showed multiple dilated loops of small bowel throughout the abdomen with air-fluid levels concerning for small bowel obstruction. CT confirmed mechanical small bowel obstruction with suspected transition point in the mid abdomen with no pneumatosis intestinalis, portal venous gas, or pneumoperitoneum. CT also showed suspected left lower lobe pneumonia. Also showed left lower lobe pulmonary mass measuring about 2.1 cm. Also showed left ovarian soft tissue mass measuring 6.6 cm. There was also a right ovarian cystic lesion measuring 5.0cm. Patient was admitted and managed conservatively. Patient denies any pain. Nausea/vomiting/diarrhea likely due to enteritis -Patient with nausea and vomiting and diarrhea. Presented to outside facility due to concern for dehydration. CT showing mechanical small bowel obstruction with suspected transition point in the mid abdominal. Patient feeling better. -Patient was managed conservatively with IVF, NPO, pain management -Gastrografin challenge done yesterday and showing contrast in the colon -Diet advanced to full liquid today per general surgery. Probable aspiration pneumonia: Patient with left lower lobe infiltrate concerning for pneumonia. Inthe context of recurrent nausea and vomiting. -Continue Zosyn. Day #3 Left lower lobe mass: Patient with finding of 2.1 cm left lower lobe mass on CT. Left ovarian soft tissue mass measuring 6.6 cm: Noted on CT -Outpatient follow-up with further imaging. 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 -Fall precautions Autism Baseline cognitive impairment Frequent reorientation Fall precautions Diet: clear liquid diet DVT Prophylaxis: Pneumatic Compression Devices Boyce Catheter: Not present Lines: None Cardiac Monitoring: None Code Status: Full Code Code Status: Full Code Medically Ready for Discharge: Anticipated in 2-4 Days José Luis Valderrama MD Interval History Patient seen and examined. Chart reviewed. Patient unable to provide reliable history due to her cognitive impairment. -Data reviewed today: I reviewed all new labs and imaging results over the last 24 hours. I personally reviewed Physical Exam Temp: 98.2 ??F (36.8 ??C) Temp src: Axillary BP: 133/71 Pulse: 71 Resp: 16 SpO2: 96 % O2 Device: Nasal cannula Oxygen Delivery: 1 LPM Vitals: 07/28/242123 Weight: 63 kg (138 lb 14.2 oz) Vital Signs with Ranges Temp: [97.9 ??F (36.6 ??C)-98.8 ??F (37.1 ??C)] 98.2 ??F (36.8 ??C) Pulse: [71-87] 71 Resp: [16-18] 16 BP: (124-133)/(63-73) 133/71 SpO2: [93 %-96 %] 96 % No intake/output data recorded. GEN: Alert, awake, appears comfortable, NAD. HEENT: Normocephalic/atraumatic, no scleral icterus, no nasal discharge, mouth moist. CV: Regular rate and rhythm, no murmur or JVD. S1 + S2 noted, no S3 or S4. LUNGS: Clear to auscultation bilaterally without rales/rhonchi/wheezing/retractions. Symmetric chest rise on inhalation noted. ABD: Active bowel sounds, soft, non-tender/non-distended. No rebound/guarding/rigidity. EXT: No edema or cyanosis. Hands/feet warm to touch with good signs of peripheral perfusion. No joint synovitis noted. SKIN: Dry to touch, no exanthems noted in the visualized areas. NEURO: Symmetric muscle strength, sensation to touch grossly intact. No new focal deficits appreciated. Medications Current Facility-Administered Medications Medication Dose Route Frequency Provider Last Rate Last Admin lactated ringers infusion Intravenous Continuous Toby Finch MD 100 mL/hr at 07/30/241952 Rate Verify at 07/30/241952 Current Facility-Administered Medications Medication Dose Route Frequency Provider Last Rate Last Admin piperacillin-tazobactam (ZOSYN) 3.375 g vial to attach to NS 100 mL bag 3.375 g Intravenous Q6H Toby Finch MD 3.375 g at 07/31/24 0533 sodium chloride (PF) 0.9% PF flush 3 mL 3 mL Intracatheter Q8H [facility] Toby Finch MD 3 mL at 07/31/24 0533 Data Recent Labs Lab 07/31/24 0212 07/30/24 1701 07/30/24 0809 07/30/24 0209 07/29/24 0738 WBC -- -- 9.8 -- 7.6 HGB -- -- 15.5 -- 16.6* MCV -- -- 91 -- 92 PLT -- -- 266 -- 250 NA -- -- 155* -- 146* POTASSIUM 4.8 3.1* 3.4 3.4 < > 2.9* CHLORIDE -- -- 116* -- 107 CO2 -- -- 23 -- 22 BUN -- -- 15.1 -- 16.6 CR -- -- 0.39* -- 0.46* ANIONGAP -- -- 16* -- 17* CELINA -- -- 9.1 -- 8.7* GLC -- -- 127* -- 148* ALBUMIN -- -- -- -- 3.5 < > = values in this interval not displayed. No results found for this or any previous visit (from the past 24 hours). * Frantz Crespo MD - 07/31/2024 9:21 AM CDT [facility] Consult for ileus vs SBO, pneumonia Pt seen and examined, AXR reviewed and care discussed with her parents. She is drinking okay but states she is not at all hungry. Did have some liquid stools per RN notes,denies pain as before. NAD, resting, non-toxic. Abd soft, no tenderness elicited, rare bowel tones. Improving; difficult to elucidate the exact underlying issue though it is possible she has some delayed transit and this is exacerbated by her pneumonia. Okay to trial full liquids. Continue Zosyn. * José Luis Valderrama MD - 07/30/2024 11:23 AM CDT [facility] Hospitalist Progress Note Provider : José Luis Valderrama MD, MD Date of Service (when I saw the patient): 07/30/2024 Assessment & Plan Sabine Olmos is a 44 year old female admitted on 07/28/2024. 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 She was sent to the ED at outside facility for nausea and vomiting. Parents report that patient started throwing up 2 nights ago. They report about 8 episodes of nonbloody nonbilious emesis.He also reports that patient has had diarrhea since that time. They report the patient typically has a bowel movement every other day with a chunk of hard stool. They were concerned the patient was getting dehydrated so they sent patient to the ED at outside facility. At outside facility, CT vital signs were fairly unremarkable except for O2 saturation of 90% on room air. CBC was unremarkable. CMP was also unremarkable. CRP was 2.25. X-ray of the abdomen showed multiple dilated loops of small bowel throughout the abdomen with air-fluid levels concerning for small bowel obstruction. CT confirmed mechanical small bowel obstruction with suspected transition point in the mid abdomen with no pneumatosis intestinalis, portal venous gas, or pneumoperitoneum. CT also showed suspected left lower lobe pneumonia. Also showed left lower lobe pulmonary mass measuring about 2.1 cm. Also showed left ovarian soft tissue mass measuring 6.6 cm. There was also a right ovarian cystic lesion measuring 5.0cm. Patient was admitted and managed conservatively. Patient denies any pain. Nausea/vomiting/diarrhea likely due to enteritis -Patient with nausea and vomiting and diarrhea. Presented to outside facility due to concern for dehydration. CT showing mechanical small bowel obstruction with suspected transition point in the mid abdominal. Patient feeling better. -Patient was managed conservatively with IVF, NPO, pain management -Gastrografin challenge done yesterday and showing contrast in the colon -started on clear liquid diet per surgery. Will advance diet as tolerated Probable aspiration pneumonia: Patient with left lower lobe infiltrate concerning for pneumonia. In the context of recurrent nausea and vomiting. -Continue Zosyn Left lower lobe mass: Patient with finding of 2.1 cm left lower lobe mass on CT. Left ovarian soft tissue mass measuring 6.6 cm: Noted on CT -Outpatient follow-up with further imaging. 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 -Fall precautions Autism Baseline cognitive impairment Frequent reorientation Fall precautions Diet: clear liquid diet DVT Prophylaxis: Pneumatic Compression Devices Boyce Catheter: Not present Lines: None Cardiac Monitoring: None Code Status: Full Code Code Status: Full Code Medically Ready for Discharge: Anticipated in 2-4 Days José Luis Valderrama MD Interval History Patient seen and examined. Chart reviewed. Patient unable to provide reliable history due to her underlying condition. Per family, patient having liquid stool. -Data reviewed today: I reviewed all new labs and imaging results over the last 24 hours. I personally reviewed Physical Exam Temp: 98.6 ??F (37 ??C) Temp src: Axillary BP: 126/64 Pulse: 84 Resp: 18 SpO2: 93 % O2 Device: Nasal cannula Oxygen Delivery: 1 LPM Vitals: 07/28/242123 Weight: 63 kg (138 lb 14.2 oz) Vital Signs with Ranges Temp: [98.2 ??F (36.8 ??C)-98.6 ??F (37 ??C)] 98.6 ??F (37 ??C) Pulse: [84-91] 84 Resp: [16-20] 18 BP: (107-126)/(52-65) 126/64 SpO2: [92 %-93 %] 93 % I/O last 3 completed shifts: In: - Out: 1 [Emesis/NG output:1] GEN: Alert, awake, appears comfortable, NAD. HEENT: Normocephalic/atraumatic, no scleral icterus, no nasal discharge, mouth moist. CV: Regular rate and rhythm, no murmur or JVD. S1 + S2 noted, no S3 or S4. LUNGS: Clear to auscultation bilaterally without rales/rhonchi/wheezing/retractions. Symmetric chest rise on inhalation noted. ABD: Active bowel sounds, soft, non-tender/non-distended. No rebound/guarding/rigidity. EXT: No edema or cyanosis. Hands/feet warm to touch with good signs of peripheral perfusion. No joint synovitis noted. SKIN: Dry to touch, no exanthems noted in the visualized areas. NEURO: Symmetric muscle strength, sensation to touch grossly intact. No new focal deficits appreciated. Medications Current Facility-Administered Medications Medication Dose Route Frequency Provider Last Rate Last Admin lactated ringers infusion Intravenous Continuous Toby Finch MD 100 mL/hr at 07/30/24 0120 Rate Verify at 07/30/24 0120 Current Facility-Administered Medications Medication Dose Route Frequency Provider Last Rate Last Admin piperacillin-tazobactam (ZOSYN) 3.375 g vial to attach to NS 100 mL bag 3.375 g Intravenous Q6H Toby Finch MD 3.375 g at 07/30/24 0614 sodium chloride (PF) 0.9% PF flush 3 mL 3 mL Intracatheter Q8H [facility] Toby Finch MD 3 mL at 07/29/24 2203 Data Recent Labs Lab 07/30/24 0809 07/30/24 0209 07/29/24 0738 WBC 9.8 -- 7.6 HGB 15.5 -- 16.6* MCV 91 -- 92 PLT 266 -- 250 NA 155* -- 146* POTASSIUM 3.4 3.4 3.1* 2.9* CHLORIDE 116* -- 107 CO2 23 -- 22 BUN 15.1 -- 16.6 CR 0.39* -- 0.46* ANIONGAP 16* -- 17* CELINA 9.1 -- 8.7* GLC 127* -- 148* ALBUMIN -- -- 3.5 Recent Results (from the past 24 hours) XR Gastrografin Challenge Narrative EXAM: XR GASTROGRAFIN CHALLENGE LOCATION: [facility] DATE: 07/29/2024 INDICATION: Small Bowel Obstruction COMPARISON: None. TECHNIQUE: Routine water soluble contrast follow-through challenge. Impression IMPRESSION: 1. Uneventful small amount of contrast identified within the ascending and descending colon 8 hourspost administration. 2. Contrast filled loops of dilated small bowel noted throughout the abdomen compatible with obstruction. XR Abdomen 1 View Narrative EXAM: XR ABDOMEN 1 VIEW LOCATION: [facility] DATE: 07/30/2024 INDICATION: follow up gastrografin challenge COMPARISON: Radiographs 07/29/2024 Impression IMPRESSION: Progression of Gastrografin since yesterday, with increased volume of contrast in the colon. Overall decrease in caliber of small bowel loops however some segments remain dilated. Nothingfor free air on these supine only radiographs. * Harley Barnett MD - 07/30/2024 10:44 AM CDT Surgery progress note: S: no acute issues, continues to have episodes of diarrhea/loose stools, no vomiting, some abdominal pain continues, hungry and thirsty O: BP 126/64 (BP Location: Left arm) Pulse 84 Temp 98.6 ??F (37 ??C) (Axillary) Resp 18 Ht 1.473 m (4' 10) Wt 63 kg (138 lb 14.2 oz) SpO2 93% BMI 29.03 kg/m?? Gen: sitting up in bed, appears well, nad, father at bedside Abd: soft, mildly tender in the right mid-abdomen but otherwise not significantly tender, no guarding or rebound XR reviewed showing contrast in colon this morning, still some dilated loops of small bowel but improved A/P: -can advance to CLD today and ADAT Harley Barnett MD * José Luis Valderrama MD - 07/29/2024 3:04 PM CDT [facility] Hospitalist Progress Note Provider : José Luis Valderrama MD, MD Date of Service (when I saw the patient): 07/29/2024 Assessment & Plan Sabine Olmos is a 44 year old female admitted on 07/28/2024. 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 She was sent to the ED at outside facility for nausea and vomiting. Parents report that patient started throwing up 2 nights ago. They report about 8 episodes of nonbloody nonbilious emesis.He also reports that patient has had diarrhea since that time. They report the patient typically has a bowel movement every other day with a chunk of hard stool. They were concerned the patient was getting dehydrated so they sent patient to the ED at outside facility. At outside facility, CT vital signs were fairly unremarkable except for O2 saturation of 90% on room air. CBC was unremarkable. CMP was also unremarkable. CRP was 2.25. X-ray of the abdomen showed multiple dilated loops of small bowel throughout the abdomen with air-fluid levels concerning for small bowel obstruction. CT confirmed mechanical small bowel obstruction with suspected transition point in the mid abdomen with no pneumatosis intestinalis, portal venous gas, or pneumoperitoneum. CT also showed suspected left lower lobe pneumonia. Also showed left lower lobe pulmonary mass measuring about 2.1 cm. Also showed left ovarian soft tissue mass measuring 6.6 cm. There was also a right ovarian cystic lesion measuring 5.0cm. General surgery was consulted and accepted patient in transfer. Patient denies any pain. Nausea/vomiting/diarrhea likely due to enteritis -Patient with nausea and vomiting and diarrhea. Presented to outside facility due to concern for dehydration. CT showing mechanical small bowel obstruction with suspected transition point in the mid abdominal. Patient feeling better. -Will continue IV fluids -Will keep NPO for now -Gastrografin challenge ordered per general surgery Probable aspiration pneumonia: Patient with left lower lobe infiltrate concerning for pneumonia. Inthe context of recurrent nausea and vomiting. Continue Zosyn Left lower lobe mass: Patient with finding of 2.1 cm left lower lobe mass on CT. Left ovarian soft tissue mass measuring 6.6 cm: Noted on CT Outpatient follow-up with further imaging. 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 Fall precautions Billet with assistance Autism Baseline cognitive impairment Frequent reorientation Fall precautions Diet: NPO for Medical/Clinical Reasons Except for: Meds, Ice Chips DVT Prophylaxis: Pneumatic Compression Devices Boyce Catheter: Not present Lines: None Cardiac Monitoring: None Code Status: Full Code Code Status: Full Code Medically Ready for Discharge: Anticipated in 2-4 Days José Luis Valderrama MD Interval History Patient seen and examined. Chart reviewed. Patient has autism at baseline and unable to provide reliable history. History obtained from her father. Vomiting improving. -Data reviewed today: I reviewed all new labs and imaging results over the last 24 hours. I personally reviewed Physical Exam Temp: 97.5 ??F (36.4 ??C) Temp src: Axillary BP: 114/61 Pulse: 95 Resp: 16 SpO2: 96 % O2 Device: Nasal cannula Oxygen Delivery: 1 LPM Vitals: 07/28/24 2124 Weight: 63 kg (138 lb 14.2 oz) Vital Signs with Ranges Temp: [97.5 ??F (36.4 ??C)-98.7 ??F (37.1 ??C)] 97.5 ??F (36.4 ??C) Pulse: [95-97] 95 Resp: [16-20] 16 BP: (100-114)/(58-69) 114/61 SpO2: [90 %-96 %] 96 % No intake/output data recorded. GEN: Alert, awake, appears comfortable, NAD. HEENT: Normocephalic/atraumatic, no scleral icterus, no nasal discharge, mouth moist. CV: Regular rate and rhythm, no murmur or JVD. S1 + S2 noted, no S3 or S4. LUNGS: Clear to auscultation bilaterally without rales/rhonchi/wheezing/retractions. Symmetric chest rise on inhalation noted. ABD: Active bowel sounds, soft, non-tender/non-distended. No rebound/guarding/rigidity. EXT: No edema or cyanosis. Hands/feet warm to touch with good signs of peripheral perfusion. No joint synovitis noted. SKIN: Dry to touch, no exanthems noted in the visualized areas. NEURO: Symmetric muscle strength, sensation to touch grossly intact. No new focal deficits appreciated. Medications Current Facility-Administered Medications Medication Dose Route Frequency Provider Last Rate Last Admin lactated ringers infusion Intravenous Continuous Toby Finch MD 100 mL/hr at 07/29/24 0959 New Bag at 07/29/24 0959 Current Facility-Administered Medications Medication Dose Route Frequency Provider Last Rate Last Admin piperacillin-tazobactam (ZOSYN) 3.375 g vial to attach to NS 100 mL bag 3.375 g Intravenous Q6H Toby Finch MD 3.375 g at 07/29/24 1232 sodium chloride (PF) 0.9% PF flush 3 mL 3 mL Intracatheter Q8H [facility] Toby Finch MD 3 mL at 07/29/24 0616 Data Recent Labs Lab 07/29/24 0738 WBC 7.6 HGB 16.6* MCV 92 PLT 250 NA 146* POTASSIUM 2.9* CHLORIDE 107 CO2 22 BUN 16.6 CR 0.46* ANIONGAP 17* CELINA 8.7* GLC 148* ALBUMIN 3.5 No results found for this or any previous visit (from the past 24 hours). * Spencer Ordoñez RN - 07/28/2024 11:01 PM CDT 07/28/24 2230 Skin Skin WDL X;integrity;all Skin Color redness blanchable Skin Temperature warm Skin Moisture dry Skin Elasticity quick return to original state Skin Integrity bruised (ecchymotic) Bruised (ecchymotic) location Left;Thigh Redness blanchable location Sacrum/Coccyx Device Skin Interventions Taken No adjustments needed Admission/Transfer from: [facility] ER 2 RN skin assessment completed. Yes Significant findings include: bruise on the left thigh LDA added (if applicable)? Not Applicable Requested WOC Nurse Consult from ? Not Applicable documented in this encounter H&P Notes * Toby Finch MD - 07/28/2024 9:32 PM CDT [facility] History and Physical - Hospitalist Service Date of Admission: 07/28/2024 Assessment & Plan Sabine Olmos is a 44 year old female admitted on 07/28/2024. 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 She was sent to the ED at outside facility for nausea and vomiting. Parents report that patient started throwing up 2 nights ago. They report about 8 episodes of nonbloody nonbilious emesis.He also reports that patient has had diarrhea since that time. They report the patient typically has a bowel movement every other day with a chunk of hard stool. They were concerned the patient was getting dehydrated so they sent patient to the ED at outside facility. At outside facility, CT vital signs were fairly unremarkable except for O2 saturation of 90% on room air. CBC was unremarkable. CMP was also unremarkable. CRP was 2.25. X-ray of the abdomen showed multiple dilated loops of small bowel throughout the abdomen with air-fluid levels concerning for small bowel obstruction. CT confirmed mechanical small bowel obstruction with suspected transition point in the mid abdomen with no pneumatosis intestinalis, portal venous gas, or pneumoperitoneum. CT also showed suspected left lower lobe pneumonia. Also showed left lower lobe pulmonary mass measuring about 2.1 cm. Also showed left ovarian soft tissue mass measuring 6.6 cm. There was also a right ovarian cystic lesion measuring 5.0 cm. General surgery was consulted and accepted patient in transfer. Patient denies any pain. # Mechanical small bowel obstruction: Patient with nausea and vomiting and diarrhea. Presented to outside facility due to concern for dehydration. CT showing mechanical small bowel obstruction with suspected transition point in the mid abdominal. IV fluids NG tube As needed pain regimen Monitor replace electrolytes N.p.o. General Surgery consulted, appreciate input Strict I's and O's # # Probable aspiration pneumonia: Patient with left lower lobe infiltrate concerning for pneumonia. In the context of recurrent nausea and vomiting. Continue Zosyn # Left lower lobe mass: Patient with finding of 2.1 cm left lower lobe mass on CT. # Left ovarian soft tissue mass measuring 6.6 cm: Noted on CT Outpatient follow-up with further imaging. 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 Fall precautions Billet with assistance # Autism # Baseline cognitive impairment Frequent reorientation Fall precautions Diet: NPO for Medical/Clinical Reasons Except for: Meds, Ice Chips DVT Prophylaxis: Pneumatic Compression Devices Boyce Catheter: Not present Lines: None Cardiac Monitoring: None Code Status: Full Code Clinically Significant Risk Factors Present on Admission Disposition Plan Medically Ready for Discharge: Anticipated in 2-4 Days Toby Finch MD Hospitalist Service [facility] Securely message with [email or web address] (more info) Text page via [facility] Paging/Directory Chief Complaint Transferred to us for bowel obstruction History is obtained from the patient's parents History of Present Illness Sabine Olmos is a 44 year old female who has medical history significant for autism, 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 She was sent to the ED at outside facility for nausea and vomiting. Parents report that patient started throwing up 2 nights ago. They report about 8 episodes of nonbloody nonbilious emesis. He also reports that patient has had diarrhea since that time. They report the patient typically has a bowel movement every other day with a chunk of hard stool. They were concerned the patient was getting dehydrated so they sent patient to the ED at outside facility. At outside facility, CT vital signs were fairly unremarkable except for O2 saturation of 90% on room air. CBC was unremarkable. CMP was also unremarkable. CRP was 2.25. X-ray of the abdomen showed multiple dilated loops of small bowel throughout the abdomen with air- fluid levels concerning for small bowel obstruction. CT confirmed mechanical small bowel obstruction with suspected transition point in the mid abdomen with no pneumatosis intestinalis, portal venous gas, or pneumoperitoneum. CT also showed suspected left lower lobe pneumonia. Also showed left lower lobe pulmonary mass measuring about 2.1 cm. Also showed left ovarian soft tissue mass measuring 6.6 cm. There was also a right ovarian cystic lesion measuring 5.0 cm. General surgery was consulted and accepted patient in transfer. Patient denies any pain. Past Medical History No past medical history on file. Past Surgical History No past surgical history on file. Prior to Admission Medications None Review of Systems Unable to obtain ROS due to patient's cognitive status. Pertinent positives reported by appearance is as per HPI. Physical Exam Vital Signs: Temp: 97.8 ??F (36.6 ??C) Temp src: Oral BP: 111/69 Pulse: 95 Resp: 16 SpO2: (!) 90 % O2 Device: None (Room air) Weight: 63 lbs 0 oz General: Awake and alert. NAD, pleasant. Parents at bedside. HEENT: NCAT, pupils are equal and round, anicteric, oral mucosa is moist. Neck: Supple, Cardiac: Tachycardic. RR. No murmur. No rub or gallop. Respiratory: Coarse breath sounds in left lower lung. Shallow breaths. Abdomen: Soft, NT, ND. Absent bowel sounds Extremity: No LE edema, DP pulses palpable. Neuro: Awake and alert. Psych: Calm and cooperative. Medical Decision Making >60 MINUTES SPENT BY ME on the date of service doing chart review, history, exam, documentation & further activities per the note. Data Labs and imaging results from outside facility reviewed pertinent findings reported in HPI above. documented in this encounter Consult Notes * Portia Benson RD - 08/03/2024 11:32 AM CDT CLINICAL NUTRITION SERVICES - ASSESSMENT NOTE Registered Dietitian Interventions: - Continue diet as ordered by provider teams. - Discussed w/ RN, kya to order prn Ensure. REASON FOR ASSESSMENT Length of stay. PMH: Autism, myotonic dystrophy, chronic constipation, cognitive impairment (cognition of 7 yo). Admit 2/2: N/V, SBO, concern for aspiration PNA. INFORMATION OBTAINED Assessed patient in room. But was not able to connect as she was in the shower and unavailable. Momwas no longer in room. NUTRITION HISTORY - Not able to obtain formal hx as above. - Allergies: NKFA. CURRENT NUTRITION ORDERS Diet: Regular Snacks/Supplements: None. CURRENT INTAKE/TOLERANCE - 25-75% intakes with diet advancement. - Diet advanced to clears 07/30, fulls 07/31 and regular 08/01. LABS: Reviewed MEDICATIONS: Reviewed SYSTEM AND PHYSICAL FINDINGS: - Stooling patterns noted. - No documentation of PI. CONSULTS: - DIESEL MAINTENANCE TECHNICIAN ok'ed regular/thins. - Surgery team previously following and completed GGC. Since signed off. ANTHROPOMETRICS Height: 147.3 cm (4' 10) Admission Weight: 63 kg (138 lb 14.2 oz) (07/28/242123) Most Recent Weight: 63 kg (138 lb 14.2 oz) (07/28/242123) BMI: Body mass index is 29.03 kg/m??. Weight History: Wt Readings from Last 10 Encounters: 07/28/24 63 kg (138 lb 14.2 oz) - No edema documented. - No wt hx on file, care everywhere was reviewed. ASSESSED NUTRITION NEEDS Dosing Weight: 63 kg, based on admit wt Estimated Energy Needs: >/=1575 kcals/day (>/=25 kcals/kg) Justification: Minimum maintenance Estimated Protein Needs: >/=63 grams protein/day (>/=1 grams of pro/kg) Justification: Preservation of lean body mass Estimated Fluid Needs: 1 mL/kcal or per provider MALNUTRITION % Intake: Decreased intake does not meet criteria % Weight Loss: Unable to assess Subcutaneous Fat Loss: Unable to assess Muscle Loss: Unable to assess Fluid Accumulation/Edema: None documented Malnutrition Diagnosis: Unable to determine due to lack of nutrition and wt hx Malnutrition Present on Admission: Unable to assess NUTRITION DIAGNOSIS Inadequate oral intake related to previous diet restrictions in the setting of altered GI function,?slow to return appetite as evidenced by meeting <75% of nutrition needs x6 day admit. INTERVENTIONS Checked-in w/ RN on unit. Asked if prn Ensure could be offered later today, or when mom present. GOALS Patient to consume 75-100% of nutritionally adequate meal trays TID, or the equivalent with supplements/snacks. MONITORING/EVALUATION Progress toward goals will be monitored and evaluated per policy. Portia Benson RDN, CREDIT RELATIONSHIP MANAGER, LD Clinical Dietitian Kit Message Group: Dietitian [Fortunato] Office: [phone] Pagers: 3rd floor/ICU: [phone] All other floors: [phone] Weekend/holiday: [phone] * Mary Villegas RN - 08/02/2024 2:39 PM CDTAssociated Order(s): CARE MANAGEMENT / SOCIAL WORK IP CONSULT Care Management Initial Consult General Information Assessment completed with: Parents, Type of CM/SW Visit: Offer D/C Planning Primary Care Provider verified and updated as needed: Yes Readmission within the last 30 days: Reason for Consult: discharge planning Advance Care Planning: Communication Assessment Patient's communication style: spoken language (Greenlandic or Bilingual) Hearing Difficulty or Deaf: no Wear Glasses or Blind: yes Cognitive Cognitive/Neuro/Behavioral: .WDL except Level of Consciousness: alert Arousal Level: opens eyes spontaneously Orientation: disoriented to, time, situation Mood/Behavior: cooperative Speech: garbled Living Environment: People in home: parent(s) Current living Arrangements: house Able to return to prior arrangements: yes Family/Social Support: Care provided by: parent(s) Provides care for: no one, unable/limited ability to care for self Support system: Parent(s) Description of Support System: Supportive, Involved Current Resources: Patient receiving home care services: No Community Resources: [employer], [employer] Worker, Other (see comment) (DD waiver) Equipment currently used at home: grab bar, tub/shower, hospital bed, walker, standard, wheelchair,manual Supplies currently used at home: Employment/Financial: Employment Status: disabled Financial Concerns: Does the patient's insurance plan have a 3 day qualifying hospital stay waiver? No Lifestyle & Psychosocial Needs: Social Drivers of Health Food Insecurity: Unknown (07/29/2024) Food Insecurity Within the past 12 months, did you worry that your food would run out before you got money to buy more?: Patient unable to answer Within the past 12 months, did the food you bought just not last and you didn???t have money to getmore?: Patient unable to answer Depression: Not on file Housing Stability: Unknown (07/29/2024) Housing Stability Do you have housing? : Patient unable to answer Are you worried about losing your housing?: Patient unable to answer Tobacco Use: Not on file Financial Resource Strain: Unknown (07/29/2024) Financial Resource Strain Within the past 12 months, have you or your family members you live with been unable to get utilities (heat, electricity) when it was really needed?: Patient unable to answer Alcohol Use: Not on file Transportation Needs: Unknown (07/29/2024) Transportation Needs Within the past 12 months, has lack of transportation kept you from medical appointments, getting your medicines, non-medical meetings or appointments, work, or from getting things that you need?: Patient unable to answer Physical Activity: Not on file Interpersonal Safety: Unknown (07/29/2024) Interpersonal Safety Do you feel physically and emotionally safe where you currently live?: Patient unable to answer Within the past 12 months, have you been hit, slapped, kicked or otherwise physically hurt by someone?: Patient unable to answer Within the past 12 months, have you been humiliated or emotionally abused in other ways by your partner or ex-partner?: Patient unable to answer Stress: Not on file Social Connections: Not on file Health Literacy: Not on file Functional Status: Prior to admission patient needed assistance: Dependent ADLs:: Ambulation-walker, Bathing, Dressing, Eating, Grooming, Incontinence, Wheelchair-with assist, Transfers, Toileting Dependent IADLs:: Cleaning, Cooking, Laundry, Shopping, Meal Preparation, Medication Management, Money Management, Transportation, Incontinence Mental Health Status: Chemical Dependency Status: Values/Beliefs: Spiritual, Cultural Beliefs, Evangelical Practices, Values that affect care: Discussed ???Partnership in Safe Discharge Planning??? document with patient/family: No Additional Information: CM consulted for discharge planning. Patient with history of myotonic dystrophy admitted with nausea and vomiting. CM contacted patients father Jose R via phone to complete assessment. Step mother had questions this am regarding help at home(Patient has a mental capacity of around 7yo). 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 Patients mother who lived in [facility] and they took on the caregiver role. Patient was on a DD waiver thatwas then transferred to [facility]. They initially moved her into a in [place] which they stated was great but the patient did not do well in the 2 months she was there so they brought her home with them. Jose R had questions about resources if they are not able to care for her in the future as they are almost 70. After conversation it is evident they have already done many things to move in this direction if needed. Reassured them that they already have many things in place and have potential more ability to add on services. Current services/DME: [facility] waiver Sports Editor Linnette Juarez [phone] Approved for Respite Care hours through [employer] but thus far this has not been secured. Several family have offered but they need to go through hrs of training and have not completed Looking for day program Current DME hospital bed, wheelchair, walker, ramp Jose R states that patient normally mobilizes with a walker or him walking behind her with arms underneath her armpits. He showers her every other day. She spends time watching cartoons, sports and game shows and doing puzzles. She likes going places with family. Discussed option and recommendation for home care PT. Offered home RN, PT,SW and [employer]. They are agreeable to have CM send a referral for this support. Referral pending through [facility] at this time.CM will follow up with dad tomorrow. Mary Villegas RN BSN OCN Furn[employer] Rental Consultant [facility] [phone] * Frantz Crespo MD - 07/29/2024 9:00 AM CDTAssociated Order(s): SURGERY GENERAL IP CONSULT General Surgery Consultation Sabine Olmos Age: [id number] year old Date of : 1980 Date of Admission: 07/28/2024 Reason for consult: Nausea, vomiting and diarrhea. Requesting physician: Dr Valderrama Assessment and Plan: Assessment: Sabine Olmos is a 44 year old female with nausea, vomiting and diarrhea. Her clinical presentation is more consistent with enteritis; she is pain free and thirsty this AM. Comorbidities: has no past medical history on file. Plan: Continue conservative management with bowel rest, npo, IVF Will trial a po gastrografin challenge. Consider laparoscopy if she fails this attempt. Chief Complaint: Nausea, vomiting and diarrhea. History is obtained from the patient's father due to her developmental delay. History of Present Illness: Sabine Olmos is a 44 year old female who presents with about three days of vomiting and diarrhea.She has not reported pain throughout this interval. She has not had prior abdominal surgery. She has not had any recognized sick contacts. She initially presented to [facility] where she had a CT that was concerning for a mechanical bowel obstruction. She had an NG placed here but she removed it. This morning she is asking for something to drink. She normally has a BM every three days and it is typically firm. Past Medical History: Developmental delay with Autism. Past Surgical History: No past surgical history on file. Social History: Social History Tobacco Use Smoking status: Not on file Smokeless tobacco: Not on file Substance Use Topics Alcohol use: Not on file Family History: Family history reviewed and is not pertinent. Allergies: No Known Allergies Medications: Current Facility-Administered Medications Medication Dose Route Frequency Provider Last Rate Last Admin acetaminophen (TYLENOL) tablet 650 mg 650 mg Oral Q4H PRN Toby Finch MD Or acetaminophen (TYLENOL) Suppository 650 mg 650 mg Rectal Q4H PRN Toby Finch MD diatrizoate meglumine-sodium (GASTROGRAFIN) 120 mL in sterile water (bottle) 150 mL 150 mL Oral Once Frantz Crespo MD lactated ringers infusion Intravenous Continuous Toby Finch MD 100 mL/hr at 07/29/24 0705 Restarted at 07/29/24 0705 lidocaine (LMX4) cream Topical Q1H PRN Toby iFnch MD lidocaine 1 % 0.1-1 mL 0.1-1 mL Other Q1H PRN Toby Finch MD melatonin tablet 5 mg 5 mg Oral At Bedtime PRN Toby Finch MD morphine (PF) injection 1 mg 1 mg Intravenous Q2H PRN Toby Finch MD morphine (PF) injection 2 mg 2 mg Intravenous Q2H PRN Toby Finch MD naloxone (NARCAN) injection 0.2 mg 0.2 mg Intravenous Q2 Min PRN Oscar Brothers MD Or naloxone (NARCAN) injection 0.4 mg 0.4 mg Intravenous Q2 Min PRN Oscar Brothers MD Or naloxone (NARCAN) injection 0.2 mg 0.2 mg Intramuscular Q2 Min PRN Oscar Brothers MD Or naloxone (NARCAN) injection 0.4 mg 0.4 mg Intramuscular Q2 Min PRN Oscar Brothers MD ondansetron (ZOFRAN ODT) ODT tab 4 mg 4 mg Oral Q6H PRN Toby Finch MD Or ondansetron (ZOFRAN) injection 4 mg 4 mg Intravenous Q6H PRN Toby Finch MD oxyCODONE (ROXICODONE) tablet 5 mg 5 mg Oral Q4H PRN Toby Finch MD oxyCODONE IR (ROXICODONE) half-tab 2.5 mg 2.5 mg Oral Q4H PRN Toby Finch MD piperacillin-tazobactam (ZOSYN) 3.375 g vial to attach to NS 100 mL bag 3.375 g Intravenous Q6H Toby Finch MD 3.375 g at 07/29/24 0615 prochlorperazine (COMPAZINE) injection 10 mg 10 mg Intravenous Q6H PRN Toby Finch MD Or prochlorperazine (COMPAZINE) tablet 10 mg 10 mg Oral Q6H PRN Toby Finch MD senna-docusate (SENOKOT-S/PERICOLACE) 8.6-50 MG per tablet 1 tablet 1 tablet Oral BID PRN Toby Finch MD Or senna-docusate (SENOKOT-S/PERICOLACE) 8.6-50 MG per tablet 2 tablet 2 tablet Oral BID PRN Toby Finch MD sodium chloride (PF) 0.9% PF flush 3 mL 3 mL Intracatheter Q8H GAYLA Óscar Finchel, MD 3 mL at 07/29/24 0616 sodium chloride (PF) 0.9% PF flush 3 mL 3 mL Intracatheter q1 min prn Toby Finch MD Current Facility-Administered Medications Medication Dose Route Frequency Provider Last Rate Last Admin diatrizoate meglumine-sodium (GASTROGRAFIN) 120 mL in sterile water (bottle) 150 mL 150 mL Oral Once Frantz Crespo MD piperacillin-tazobactam (ZOSYN) 3.375 g vial to attach to NS 100 mL bag 3.375 g Intravenous Q6H Toby Finch MD 3.375 g at 07/29/24 0615 sodium chloride (PF) 0.9% PF flush 3 mL 3 mL Intracatheter Q8H Toby Wright MD 3 mL at 07/29/24 0616 Review of Systems: The 10 point review of systems is negative other than noted in the HPI. Physical Exam: BP 114/61 (BP Location: Right arm) Pulse 95 Temp 97.5 ??F (36.4 ??C) (Axillary) Resp 16 Ht 1.473 m (4' 10) Wt 63 kg (138 lb 14.2 oz) SpO2 96% BMI 29.03 kg/m?? General - Well developed, well nourished female in no apparent distress HEENT: Head normocephalic and atraumatic, pupils equal and round, conjunctivae clear, no scleral icterus, mucous membranes moist, external ears and nose normal Neck: Supple without thyromegaly or masses Lymphatic: No cervical, or supraclavicular lymphadenopathy Lungs: Clear to auscultation bilaterally Heart: regular rate and rhythm, no murmurs Abdomen: Slightly rounded but soft without tenderness, rare bowel tones are present. Extremities: Warm without edema Neurologic: nonfocal Psychiatric: Mood and affect appropriate Skin: Without lesions, rashes, or juandice Data: Lab Results Component Value Date WBC 7.6 07/29/2024 Lab Results Component Value Date HGB 16.6 07/29/2024 Lab Results Component Value Date PLT 250 07/29/2024 Last Basic Metabolic Panel: Lab Results Component Value Date NA 146 07/29/2024 Lab Results Component Value Date POTASSIUM 2.9 07/29/2024 Lab Results Component Value Date CHLORIDE 107 07/29/2024 Lab Results Component Value Date CELINA 8.7 07/29/2024 Lab Results Component Value Date CO2 22 07/29/2024 Lab Results Component Value Date BUN 16.6 07/29/2024 Lab Results Component Value Date CR 0.46 07/29/2024 Lab Results Component Value Date GLC 148 07/29/2024 Imaging: All imaging studies reviewed by me. CT pushed to our PACS last evening, there is dilation of the stomach and small bowel with a gradualtransition to decompressed bowel in the mid abdomen near the umbilicus. Frantz Crespo MD documented in this encounter Miscellaneous Notes * Plan of Care - Kaelyn Nolasco, PT - 08/04/2024 10:57 AM CDT Physical Therapy Discharge Summary Reason for therapy discharge: Discharged to home with home therapy. Progress towards therapy goal(s). See goals on Care Plan in [facility] electronic health record for goal details. Goals not met. Barriers to achieving goals: discharge from facility. Therapy recommendation(s): Continued therapy is recommended. Rationale/Recommendations: Per prior PT notes, Anticipate pt to discharge home with support from family, currently Ax1 with [facility] for short distance activity. Pt would benefit from HHPT if family interested referral. Patient not seen by this therapist on this date, discharge summary written based on chart review and previous PT notes. Please see PT flowsheets for further details. * Plan of Care - Neha Genao OT - 08/04/2024 10:57 AM CDT OT order received, chart reviewed, pt. Discharged prior to initiation of OT evaluation. IP OT evaluation order completed. * Plan of Care - Kanchan Butcher, DIESEL MAINTENANCE TECHNICIAN - 08/04/2024 10:57 AM CDT Speech Language Therapy Discharge Summary Reason for therapy discharge: Discharged to home. Progress towards therapy goal(s). See goals on Care Plan in [facility] electronic health record for goal details. Goals partially met. Barriers to achieving goals: discharge from facility. Therapy recommendation(s): Consider HH DIESEL MAINTENANCE TECHNICIAN if concerns re: swallowing arise, however pt near baseline at time of discharge with last DIESEL MAINTENANCE TECHNICIAN recs: Recommend the patient continue a regular texture diet and thin liquids. Encourage the patient sit fully upright for meals (ideally in the chair), take small bites/sips when alert. *Pt not seen by discharging therapist on this date, note written based on previous treating therapist's notes and recommendations * Plan of Care - Medardo Butler RN - 08/04/2024 5:19 AM CDT Pt is Alert to self, denies pain, nausea and SOB, VSS on ra, had a large BM during shift, IV salinelocked. Goal Outcome Evaluation: Plan of Care Reviewed With: patient Overall Patient Progress: improvingOverall Patient Progress: improving Outcome Evaluation: Had a BM during shift Problem: Adult Inpatient Plan of Care Goal: Plan of Care Review Description: The Plan of Care Review/Shift note should be completed every shift. The Outcome Evaluation is a brief statement about your assessment that the patient is improving, declining, or no change. This information will be displayed automatically on your shift note. Outcome: Progressing Flowsheets (Taken 08/04/2024 0519) Outcome Evaluation: Had a BM during shift Plan of Care Reviewed With: patient Overall Patient Progress: improving Goal: Patient-Specific Goal (Individualized) Description: You can add care plan individualizations to a care plan. Examples of Individualizationmight be: Parent requests to be called daily at 9am for status, I have a hard time hearing out of my right ear, or Do not touch me to wake me up as it startles me. Outcome: Progressing Goal: Absence of Hospital-Acquired Illness or Injury Outcome: Progressing Intervention: Identify and Manage Fall Risk Recent Flowsheet Documentation Taken 08/03/2024 2017 by Medardo Butler, RN Safety Promotion/Fall Prevention: activity supervised Intervention: Prevent and Manage VTE (Venous Thromboembolism) Risk Recent Flowsheet Documentation Taken 08/03/2024 2017 by Medardo Butler RN VTE Prevention/Management: SCDs off (sequential compression devices) Intervention: Prevent Infection Recent Flowsheet Documentation Taken 08/03/2024 2017 by Medardo Butler RN Infection Prevention: cohorting utilized Goal: Optimal Comfort and Wellbeing Outcome: Progressing Goal: Readiness for Transition of Care Outcome: Progressing Problem: Fatigue Goal: Improved Activity Tolerance Outcome: Progressing * Plan of Care - Latisha Edgar RN - 08/03/2024 5:21 PM CDT To Do: End of Shift Summary For vital signs and complete assessments, please see documentation flowsheets. Pertinent assessments: Alert to self --- up to chair with assist of 1 -- belt and walker ----appetite fair --- 3 loose stools greenish ---- denies pain and nausea ----sats on room air 94% Major Shift Events uneventful Treatment Plan: discharge Bedside Nurse: Latisha Edgar RN Problem: Adult Inpatient Plan of Care Goal: Plan of Care Review Description: The Plan of Care Review/Shift note should be completed every shift. The Outcome Evaluation is a brief statement about your assessment that the patient is improving, declining, or no change. This information will be displayed automatically on your shift note. Outcome: Progressing Flowsheets (Taken 08/03/2024 1720) Outcome Evaluation: po antbiotics Plan of Care Reviewed With: patient Overall Patient Progress: improving Goal: Patient-Specific Goal (Individualized) Description: You can add care plan individualizations to a care plan. Examples of Individualizationmight be: Parent requests to be called daily at 9am for status, I have a hard time hearing out of my right ear, or Do not touch me to wake me up as it startles me. Outcome: Progressing Goal: Absence of Hospital-Acquired Illness or Injury Outcome: Progressing Goal: Optimal Comfort and Wellbeing Outcome: Progressing Goal: Readiness for Transition of Care Outcome: Progressing Problem: Fatigue Goal: Improved Activity Tolerance Outcome: Progressing t. The Outcome Evaluation is a brief statement about your assessment that the patient is improving,declining, or no change. This information will be displayed automatically on your shift note. Outcome: Progressing Flowsheets (Taken 08/03/2024 1720) Outcome Evaluation: po antbiotics Plan of Care Reviewed With: patient Overall Patient Progress: improving Goal: Patient-Specific Goal (Individualized) Description: You can add care plan individualizations to a care plan. Examples of Individualizationmight be: Parent requests to be called daily at 9am for status, I have a hard time hearing out of my right ear, or Do not touch me to wake me up as it startles me. Outcome: Progressing Goal: Absence of Hospital-Acquired Illness or Injury Outcome: Progressing Goal: Optimal Comfort and Wellbeing Outcome: Progressing Goal: Readiness for Transition of Care Outcome: Progressing Problem: Fatigue Goal: Improved Activity Tolerance Outcome: Progressing Goal Outcome Evaluation: Plan of Care Reviewed With: patient Overall Patient Progress: improvingOverall Patient Progress: improving Outcome Evaluation: po antbiotics * Plan of Care - Johann Cooley RN - 08/03/2024 7:32 AM CDT Goal Outcome Evaluation: Pertinent assessments: Aox1 to self. VSS on 1L O2 via NC. Oximetry overnight test initiated by RT and O2 removed. Pt satting around 89-94% without O2. Denies pain, nausea, SOB. Tolerating diet. Refused to be toileted 4x overnight. Major Shift Events: Overnight O2 study Treatment Plan: Zosyn, plan for overnight O2 study tonight, DIESEL MAINTENANCE TECHNICIAN and OT consult Bedside Nurse: Johann Cooley RN Plan of Care Reviewed With: patient Overall Patient Progress: improvingOverall Patient Progress: improving Outcome Evaluation: 1 Loose stool. IV ABX. Monitor output Problem: Adult Inpatient Plan of Care Goal: Plan of Care Review Description: The Plan of Care Review/Shift note should be completed every shift. The Outcome Evaluation is a brief statement about your assessment that the patient is improving, declining, or no change. This information will be displayed automatically on your shift note. Outcome: Progressing Flowsheets (Taken 08/03/2024 0732) Outcome Evaluation: 1 Loose stool. IV ABX. Monitor output Plan of Care Reviewed With: patient Overall Patient Progress: improving Goal: Patient-Specific Goal (Individualized) Description: You can add care plan individualizations to a care plan. Examples of Individualizationmight be: Parent requests to be called daily at 9am for status, I have a hard time hearing out of my right ear, or Do not touch me to wake me up as it startles me. Outcome: Progressing Goal: Absence of Hospital-Acquired Illness or Injury Outcome: Progressing Intervention: Identify and Manage Fall Risk Recent Flowsheet Documentation Taken 08/02/20242039 by Johann Cooley RN Safety Promotion/Fall Prevention: activity supervised assistive device/personal items within reach clutter free environment maintained increase visualization of patient lighting adjusted nonskid shoes/slippers when out of bed safety round/check completed supervised activity Intervention: Prevent Infection Recent Flowsheet Documentation Taken 08/02/20242039 by Johann Cooley RN Infection Prevention: rest/sleep promoted single patient room provided Goal: Optimal Comfort and Wellbeing Outcome: Progressing Goal: Readiness for Transition of Care Outcome: Progressing Problem: Fatigue Goal: Improved Activity Tolerance Outcome: Progressing * Plan of Care - Kanchan Kimball RN - 08/02/2024 7:39 PM CDT Goal Outcome Evaluation: End of Shift Summary For vital signs and complete assessments, please see documentation flowsheets. Pertinent assessments: Alert, up in chair for much of shift. VSS, afebrile & sats maintained onRA while awake, requires 1LPM while sleeping. Per mother, patient frequently desats at home while sleeping/laying down. Denies pain. Tolerating diet with fair appetite, no signs of nausea. Voiding frequently, largely incontinent of watery stool. Major Shift Events: DIESEL MAINTENANCE TECHNICIAN and OT consulted. C.diff testing negative. Treatment Plan: Zosyn, plan for overnight O2 study tonight Bedside Nurse: Kanchan Kimball RN Plan of Care Reviewed With: patient Overall Patient Progress: improvingOverall Patient Progress: improving Problem: Adult Inpatient Plan of Care Goal: Plan of Care Review Description: The Plan of Care Review/Shift note should be completed every shift. The Outcome Evaluation is a brief statement about your assessment that the patient is improving, declining, or no change. This information will be displayed automatically on your shift note. Outcome: Progressing Flowsheets (Taken 08/02/2024 1939) Plan of Care Reviewed With: patient Overall Patient Progress: improving Goal: Patient-Specific Goal (Individualized) Description: You can add care plan individualizations to a care plan. Examples of Individualizationmight be: Parent requests to be called daily at 9am for status, I have a hard time hearing out of my right ear, or Do not touch me to wake me up as it startles me. Outcome: Progressing Goal: Absence of Hospital-Acquired Illness or Injury Outcome: Progressing Intervention: Identify and Manage Fall Risk Recent Flowsheet Documentation Taken 08/02/2024 0734 by Kanchan Kimball RN Safety Promotion/Fall Prevention: activity supervised assistive device/personal items within reach clutter free environment maintained increase visualization of patient lighting adjusted nonskid shoes/slippers when out of bed safety round/check completed supervised activity treat reversible contributory factors treat underlying cause Intervention: Prevent Skin Injury Recent Flowsheet Documentation Taken 08/02/2024 1220 by Kanchan Kimball RN Body Position: supine, head elevated Intervention: Prevent and Manage VTE (Venous Thromboembolism) Risk Recent Flowsheet Documentation Taken 08/02/2024 0734 by Kanchan Kimball RN VTE Prevention/Management: SCDs off (sequential compression devices) Goal: Optimal Comfort and Wellbeing Outcome: Progressing Intervention: Monitor Pain and Promote Comfort Recent Flowsheet Documentation Taken 08/02/2024 1507 by Kanchan Kimball RN Pain Management Interventions: cold applied Goal: Readiness for Transition of Care Outcome: Progressing * Plan of Care - Johann Cooley RN - 08/02/2024 6:46 AM CDT Goal Outcome Evaluation: Pertinent assessments: Aox1 to self. Ax2 with Walker and GB. VSS on 1LPM via NC. Denies pain, nausea, SOB. Did not eat any food overnight. Slept most of shift. Incontinent of B/B. Major Shift Events: Uneventful Treatment Plan: Zosyn, monitor diet tolerance Bedside Nurse: Johann Cooley RN Plan of Care Reviewed With: patient, parent, sibling Overall Patient Progress: improvingOverall Patient Progress: improving Outcome Evaluation: Monitor output, IV ABX, diet tolerance Problem: Adult Inpatient Plan of Care Goal: Plan of Care Review Description: The Plan of Care Review/Shift note should be completed every shift. The Outcome Evaluation is a brief statement about your assessment that the patient is improving, declining, or no change. This information will be displayed automatically on your shift note. Outcome: Progressing Flowsheets (Taken 08/02/2024 0646) Outcome Evaluation: Monitor output, IV ABX, diet tolerance Plan of Care Reviewed With: patient parent sibling Overall Patient Progress: improving Goal: Patient-Specific Goal (Individualized) Description: You can add care plan individualizations to a care plan. Examples of Individualizationmight be: Parent requests to be called daily at 9am for status, I have a hard time hearing out of my right ear, or Do not touch me to wake me up as it startles me. Outcome: Progressing Goal: Absence of Hospital-Acquired Illness or Injury Outcome: Progressing Intervention: Identify and Manage Fall Risk Recent Flowsheet Documentation Taken 08/01/20242034 by Johann Cooley RN Safety Promotion/Fall Prevention: clutter free environment maintained safety round/check completed Intervention: Prevent Infection Recent Flowsheet Documentation Taken 08/01/20242034 by Johann Cooley RN Infection Prevention: rest/sleep promoted single patient room provided Goal: Optimal Comfort and Wellbeing Outcome: Progressing Goal: Readiness for Transition of Care Outcome: Progressing Problem: Fatigue Goal: Improved Activity Tolerance Outcome: Progressing * Plan of Care - Kanchan Kimball RN - 08/01/2024 5:21 PM CDT Goal Outcome Evaluation: End of Shift Summary For vital signs and complete assessments, please see documentation flowsheets. Pertinent assessments: Alert, disoriented x time and situation. Slept on and off throughout shift. VSS, afebrile & sat maintained on RA. Denies pain or nausea. Tolerating diet with fair intake. Frequently incontinent of watery stool & urine. Up in chair x2 with assist. Major Shift Events: Advanced to regular diet. K replaced per protocol. Treatment Plan: Zosyn, monitor diet tolerance Bedside Nurse: Kanchan Kimball RN Plan of Care Reviewed With: patient, parent Overall Patient Progress: improvingOverall Patient Progress: improving Problem: Adult Inpatient Plan of Care Goal: Plan of Care Review Description: The Plan of Care Review/Shift note should be completed every shift. The Outcome Evaluation is a brief statement about your assessment that the patient is improving, declining, or no change. This information will be displayed automatically on your shift note. Outcome: Progressing Flowsheets (Taken 08/01/2024 1721) Plan of Care Reviewed With: patient parent Overall Patient Progress: improving Goal: Patient-Specific Goal (Individualized) Description: You can add care plan individualizations to a care plan. Examples of Individualizationmight be: Parent requests to be called daily at 9am for status, I have a hard time hearing out of my right ear, or Do not touch me to wake me up as it startles me. Outcome: Progressing Goal: Absence of Hospital-Acquired Illness or Injury Outcome: Progressing Intervention: Identify and Manage Fall Risk Recent Flowsheet Documentation Taken 08/01/2024 1154 by Kanchan Kimball RN Safety Promotion/Fall Prevention: activity supervised assistive device/personal items within reach clutter free environment maintained increase visualization of patient lighting adjusted nonskid shoes/slippers when out of bed safety round/check completed supervised activity treat reversible contributory factors treat underlying cause Intervention: Prevent Skin Injury Recent Flowsheet Documentation Taken 08/01/2024 1440 by Kanchan Kimball RN Body Position: supine, head elevated Taken 08/01/2024 0915 by Kanchan Kimball RN Body Position: side-lying right Intervention: Prevent and Manage VTE (Venous Thromboembolism) Risk Recent Flowsheet Documentation Taken 08/01/2024 1154 by Kanchan Kimball RN VTE Prevention/Management: SCDs off (sequential compression devices) Goal: Optimal Comfort and Wellbeing Outcome: Progressing Goal: Readiness for Transition of Care Outcome: Progressing * Plan of Care - Radha Tracy RN - 08/01/2024 5:55 AM CDT End of Shift Summary For vital signs and complete assessments, please see documentation flowsheets. Pertinent assessments: Alert, unable to assess orientation, up with assist x1-2 gaitbelt and walker. VSS, afebrile, requiring 1L oxygen, bowel sounds hypo, incontinent of bowel/bladder, lung sounds diminished, denies any pain/nausea, tolerating full liquid diet Major Shift Events: slept well between cares Treatment Plan: await return of bowel function Bedside Nurse: Radha Tracy RN Problem: Adult Inpatient Plan of Care Goal: Plan of Care Review Description: The Plan of Care Review/Shift note should be completed every shift. The Outcome Evaluation is a brief statement about your assessment that the patient is improving, declining, or no change. This information will be displayed automatically on your shift note. Outcome: Not Progressing Flowsheets (Taken 08/01/2024 0555) Plan of Care Reviewed With: patient Overall Patient Progress: no change Goal: Patient-Specific Goal (Individualized) Description: You can add care plan individualizations to a care plan. Examples of Individualizationmight be: Parent requests to be called daily at 9am for status, I have a hard time hearing out of my right ear, or Do not touch me to wake me up as it startles me. Outcome: Not Progressing Goal: Absence of Hospital-Acquired Illness or Injury Outcome: Not Progressing Intervention: Identify and Manage Fall Risk Recent Flowsheet Documentation Taken 07/31/20242213 by Radha Tracy RN Safety Promotion/Fall Prevention: activity supervised assistive device/personal items within reach clutter free environment maintained increase visualization of patient nonskid shoes/slippers when out of bed safety round/check completed room door open Intervention: Prevent Skin Injury Recent Flowsheet Documentation Taken 07/31/20242213 by Radha Tracy RN Body Position: position changed independently Goal: Optimal Comfort and Wellbeing Outcome: Not Progressing Goal: Readiness for Transition of Care Outcome: Not Progressing Goal Outcome Evaluation: Plan of Care Reviewed With: patient Overall Patient Progress: no changeOverall Patient Progress: no change Outcome Evaluation: 2 loose stools overnight, contrast to colon from [facility] * Plan of Care - Genevieve Cook RN - 07/31/2024 7:03 PM CDT Pertinent assessments: A to self only. Up ax1-2 belt and walker. Freq incont of bowel and bladder, required full linen changes x2. Tolerating full liquids. On 1L NC O2 93% at rest. Cont IVF and ABX. Major Shift Events Diet advanced to fulls. Treatment Plan: Monitor stools, update md with further watery stools. Bedside Nurse: Genevieve Cook RN Problem: Adult Inpatient Plan of Care Goal: Plan of Care Review Description: The Plan of Care Review/Shift note should be completed every shift. The Outcome Evaluation is a brief statement about your assessment that the patient is improving, declining, or no change. This information will be displayed automatically on your shift note. Outcome: Not Progressing Flowsheets (Taken 07/31/2024 1902) Outcome Evaluation: Treatment Plan: Monitor stools, update md with further watery stools. Plan of Care Reviewed With: patient Overall Patient Progress: no change Goal: Patient-Specific Goal (Individualized) Description: You can add care plan individualizations to a care plan. Examples of Individualizationmight be: Parent requests to be called daily at 9am for status, I have a hard time hearing out of my right ear, or Do not touch me to wake me up as it startles me. Outcome: Not Progressing Goal: Absence of Hospital-Acquired Illness or Injury Outcome: Not Progressing Intervention: Identify and Manage Fall Risk Recent Flowsheet Documentation Taken 07/31/2024 1042 by Genevieve Cook RN Safety Promotion/Fall Prevention: activity supervised clutter free environment maintained increased rounding and observation increase visualization of patient nonskid shoes/slippers when out of bed Intervention: Prevent and Manage VTE (Venous Thromboembolism) Risk Recent Flowsheet Documentation Taken 07/31/2024 1042 by Genevieve Cook RN VTE Prevention/Management: SCDs off (sequential compression devices) Intervention: Prevent Infection Recent Flowsheet Documentation Taken 07/31/2024 1042 by Genevieve Cook RN Infection Prevention: rest/sleep promoted single patient room provided Goal: Optimal Comfort and Wellbeing Outcome: Not Progressing Goal: Readiness for Transition of Care Outcome: Not Progressing Problem: Fatigue Goal: Improved Activity Tolerance Outcome: Not Progressing Intervention: Promote Improved Energy Recent Flowsheet Documentation Taken 07/31/2024 1330 by Genevieve Cook RN Activity Management: ambulated to bathroom Goal Outcome Evaluation: Plan of Care Reviewed With: patient Overall Patient Progress: no changeOverall Patient Progress: no change Outcome Evaluation: Treatment Plan: Monitor stools, update md with further watery stools. * Plan of Care - Radha Tracy RN - 07/31/2024 6:47 AM CDT End of Shift Summary For vital signs and complete assessments, please see documentation flowsheets. Pertinent assessments: Alert, unable to assess orientation, up with assist x1 gaitbelt and walker. VSS, afebrile, requiring 1L oxygen, bowel sounds hypo, incontinent of bowel/bladder Major Shift Events: potassium replaced recheck WNL, slept well between cares Treatment Plan: await return of bowel function Bedside Nurse: Radha Tracy RN Problem: Adult Inpatient Plan of Care Goal: Plan of Care Review Description: The Plan of Care Review/Shift note should be completed every shift. The Outcome Evaluation is a brief statement about your assessment that the patient is improving, declining, or no change. This information will be displayed automatically on your shift note. Outcome: Progressing Flowsheets (Taken 07/31/2024 0646) Outcome Evaluation: 2 loose stools overnight, contrast to colon from [facility] Plan of Care Reviewed With: patient Overall Patient Progress: improving Goal: Patient-Specific Goal (Individualized) Description: You can add care plan individualizations to a care plan. Examples of Individualizationmight be: Parent requests to be called daily at 9am for status, I have a hard time hearing out of my right ear, or Do not touch me to wake me up as it startles me. Outcome: Progressing Goal: Absence of Hospital-Acquired Illness or Injury Outcome: Progressing Intervention: Identify and Manage Fall Risk Recent Flowsheet Documentation Taken 07/30/20241951 by Radha Tracy RN Safety Promotion/Fall Prevention: activity supervised assistive device/personal items within reach clutter free environment maintained increase visualization of patient nonskid shoes/slippers when out of bed safety round/check completed room door open Intervention: Prevent Skin Injury Recent Flowsheet Documentation Taken 07/30/20241951 by Radha Tracy RN Body Position: position changed independently Goal: Optimal Comfort and Wellbeing Outcome: Progressing Goal: Readiness for Transition of Care Outcome: Progressing Goal Outcome Evaluation: Plan of Care Reviewed With: patient Overall Patient Progress: improvingOverall Patient Progress: improving Outcome Evaluation: 2 loose stools overnight, contrast to colon from [facility] * Plan of Care - Genevieve Cook RN - 07/30/2024 7:09 PM CDT Pertinent assessments: A to self, unable to assess orientation d/t baseline cognition. Up to bathroom ax1 belt and walker. Pt denies pain sob or nausea. Requiring 1L NC for O2 92-95%, spot check as pt will not keep cont pulse ox on. Diet advanced to clears Major Shift Events Repeat x ray showed progression of contrast. Pt had several large watery stools this shift. K replaced PO, unable to tolerate full dose, rechecked and will need IV replacement. Treatment Plan: Awaiting tolerance of diet advancement. Monitoring output. Bedside Nurse: Genevieve Cook RN Problem: Adult Inpatient Plan of Care Goal: Plan of Care Review Description: The Plan of Care Review/Shift note should be completed every shift. The Outcome Evaluation is a brief statement about your assessment that the patient is improving, declining, or no change. This information will be displayed automatically on your shift note. Outcome: Progressing Flowsheets (Taken 07/30/2024 1909) Outcome Evaluation: Treatment Plan: Awaiting tolerance of diet advancement. Monitoring output. Plan of Care Reviewed With: patient Overall Patient Progress: improving Goal: Patient-Specific Goal (Individualized) Description: You can add care plan individualizations to a care plan. Examples of Individualizationmight be: Parent requests to be called daily at 9am for status, I have a hard time hearing out of my right ear, or Do not touch me to wake me up as it startles me. Outcome: Progressing Goal: Absence of Hospital-Acquired Illness or Injury Outcome: Progressing Intervention: Identify and Manage Fall Risk Recent Flowsheet Documentation Taken 07/30/2024 1100 by Genevieve Cook RN Safety Promotion/Fall Prevention: activity supervised clutter free environment maintained increased rounding and observation increase visualization of patient nonskid shoes/slippers when out of bed Intervention: Prevent Infection Recent Flowsheet Documentation Taken 07/30/2024 1100 by Genevieve Cook RN Infection Prevention: hand hygiene promoted rest/sleep promoted single patient room provided Goal: Optimal Comfort and Wellbeing Outcome: Progressing Goal: Readiness for Transition of Care Outcome: Progressing Problem: Fatigue Goal: Improved Activity Tolerance Outcome: Progressing Intervention: Promote Improved Energy Recent Flowsheet Documentation Taken 07/30/2024 1100 by Genevieve Cook RN Activity Management: ambulated to bathroom Goal Outcome Evaluation: Plan of Care Reviewed With: patient Overall Patient Progress: improvingOverall Patient Progress: improving Outcome Evaluation: Treatment Plan: Awaiting tolerance of diet advancement. Monitoring output. * Plan of Care - Johann Cooley RN - 07/30/2024 7:42 AM CDT Goal Outcome Evaluation: Pertinent assessments: Aox1 to self. Cannot answer other orientation questions. Ax2 with lift. VSS on 1 L NC. LR infusing @ 100 mL/hr. Zosyn abx. NPO status maintained. BM x3 overnight. One on commode and three in brief. Loose and watery. Emesis episode once. Replaced potassium Major Shift Events: Potassium replaced. Treatment Plan: IVF, IV zosyn, Surgery consult Bedside Nurse: Johann Cooley RN Plan of Care Reviewed With: patient Overall Patient Progress: no changeOverall Patient Progress: no change Outcome Evaluation: alert to self. LR at 100. O2 via NC at 1L. Monitor BM. Problem: Adult Inpatient Plan of Care Goal: Plan of Care Review Description: The Plan of Care Review/Shift note should be completed every shift. The Outcome Evaluation is a brief statement about your assessment that the patient is improving, declining, or no change. This information will be displayed automatically on your shift note. Outcome: Progressing Flowsheets (Taken 07/30/2024 0741) Outcome Evaluation: alert to self. LR at 100. O2 via NC at 1L. Monitor BM. Plan of Care Reviewed With: patient Overall Patient Progress: no change Goal: Patient-Specific Goal (Individualized) Description: You can add care plan individualizations to a care plan. Examples of Individualizationmight be: Parent requests to be called daily at 9am for status, I have a hard time hearing out of my right ear, or Do not touch me to wake me up as it startles me. Outcome: Progressing Goal: Absence of Hospital-Acquired Illness or Injury Outcome: Progressing Intervention: Identify and Manage Fall Risk Recent Flowsheet Documentation Taken 07/29/2024 2030 by Johann Cooley, RN Safety Promotion/Fall Prevention: activity supervised assistive device/personal items within reach clutter free environment maintained increase visualization of patient nonskid shoes/slippers when out of bed safety round/check completed room door open Goal: Optimal Comfort and Wellbeing Outcome: Progressing Goal: Readiness for Transition of Care Outcome: Progressing Problem: Fatigue Goal: Improved Activity Tolerance Outcome: Progressing * Plan of Care - Lela Olmedo RN - 07/29/2024 7:24 PM CDT pt alert to self, cooperative this am with oxygen. On 1L NC. LR running at 100ml/hr. NPO except meds and ice chips. Surgeon saw pt this am. Gastrografin drink completed at 10:45, xray gastrografin completed around 1900. On Zosyn IV q6H. Pt's father and step mom at bedside this afternoon. Pt's sister arrived in evening. Incontinent x2, 2 brown liquid stools today. Bed alarm on, assist x2 with lift, at baseline assist x2 with walker. Bed alarm on. Problem: Adult Inpatient Plan of Care Goal: Plan of Care Review Description: The Plan of Care Review/Shift note should be completed every shift. The Outcome Evaluation is a brief statement about your assessment that the patient is improving, declining, or no change. This information will be displayed automatically on your shift note. Outcome: Progressing Flowsheets (Taken 07/29/2024 1205) Outcome Evaluation: pt alert to self, uncooperative at times, cooperative this am with oxygen. LR running at 100ml/hr. on 1L NC. Plan of Care Reviewed With: patient Overall Patient Progress: no change Goal: Patient-Specific Goal (Individualized) Description: You can add care plan individualizations to a care plan. Examples of Individualizationmight be: Parent requests to be called daily at 9am for status, I have a hard time hearing out of my right ear, or Do not touch me to wake me up as it startles me. Outcome: Progressing Goal: Absence of Hospital-Acquired Illness or Injury Outcome: Progressing Intervention: Identify and Manage Fall Risk Recent Flowsheet Documentation Taken 07/29/2024833 by Lela Olmedo RN Safety Promotion/Fall Prevention: (father at bedside) activity supervised assistive device/personal items within reach clutter free environment maintained increase visualization of patient nonskid shoes/slippers when out of bed safety round/check completed room door open other (see comments) Intervention: Prevent Skin Injury Recent Flowsheet Documentation Taken 07/29/2024 08 by Lela Olmedo RN Body Position: position changed independently Intervention: Prevent Infection Recent Flowsheet Documentation Taken 07/29/2024833 by Lela Olmedo RN Infection Prevention: rest/sleep promoted Goal: Optimal Comfort and Wellbeing Outcome: Progressing Goal: Readiness for Transition of Care Outcome: Progressing Goal Outcome Evaluation: Plan of Care Reviewed With: patient Overall Patient Progress: no changeOverall Patient Progress: no change * Pharmacy-Admission Medication History - Marciano Lopez RPH - 07/29/2024 8:22 AM CDT Pharmacist Admission Medication History Admission medication history is complete. The information provided in this note is only as accurateas the sources available at the time of the update. Information Source(s): Family member via in-person Pertinent Information: Spoke with patient's father Jose R who is also her guardian Changes made to SECURITIES ANALYST medication list: Added: All Deleted: None Changed: None Allergies reviewed with patient and updates made in EHR: yes Medication History Completed By: Marciano Lopez RPH 07/29/2024 8:22 AM SECURITIES ANALYST Med List Medication Sig Last Dose/Taking calcium carbonate (TUMS) 500 MG chewable tablet Take 1 chew tab by mouth daily. 07/28/2024 Morning multivitamin, therapeutic (THERA-VIT) TABS tablet Take 1 tablet by mouth daily. 07/28/2024 Morning psyllium (METAMUCIL/KONSYL) capsule Take 1 capsule by mouth daily. 07/28/2024 Morning * Plan of Care - Lela Olmedo RN - 07/29/2024 8:[address] Valderrama, NGT was successful x1 in right nare, however pt pulled it out immediately overnight. machinist 2nd shift RN tried a second attempt but was unsuccessful. Okay to keep NGT out until surgery team see's patient, she is not experiencing nausea or vomiting. Father is at bedside. * Plan of Care - Becky Can RN - 07/29/2024 7:41 AM CDT Goal Outcome Evaluation: Pertinent assessments: Assumed care of pt from [id number]. Pt slept all night. PAT orientation. Uncooperative this morning with her O2 NC, took it off and wouldn't let bond writer put it back on. PIV patent, infusing LR @ 100ml/hr as well as IV zosyn x2. NPO status maintained. Major Shift Events: uncooperative with O2 Treatment Plan: IVF, IV zosyn, NG tube (if possible), Surgery consult Bedside Nurse: Becky Can RN Overall Patient Progress: no changeOverall Patient Progress: no change Outcome Evaluation: Uncooperative with O2 NC. IVF @ 100ml/hr. NPO exc. meds/ice chips. Problem: Adult Inpatient Plan of Care Goal: Plan of Care Review Description: The Plan of Care Review/Shift note should be completed every shift. The Outcome Evaluation is a brief statement about your assessment that the patient is improving, declining, or no change. This information will be displayed automatically on your shift note. Outcome: Not Progressing Flowsheets (Taken 07/29/2024 0740) Outcome Evaluation: Uncooperative with O2 NC. IVF @ 100ml/hr. NPO exc. meds/ice chips. Overall Patient Progress: no change Goal: Patient-Specific Goal (Individualized) Description: You can add care plan individualizations to a care plan. Examples of Individualizationmight be: Parent requests to be called daily at 9am for status, I have a hard time hearing out of my right ear, or Do not touch me to wake me up as it startles me. Outcome: Not Progressing Goal: Absence of Hospital-Acquired Illness or Injury Outcome: Not Progressing Intervention: Identify and Manage Fall Risk Recent Flowsheet Documentation Taken 07/29/2024 0620 by Becky Can, RN Safety Promotion/Fall Prevention: activity supervised assistive device/personal items within reach clutter free environment maintained increase visualization of patient nonskid shoes/slippers when out of bed safety round/check completed room door open Intervention: Prevent Skin Injury Recent Flowsheet Documentation Taken 07/29/2024 06 by Becky Can RN Body Position: position maintained Intervention: Prevent Infection Recent Flowsheet Documentation Taken 07/29/2024 06 by Becky Can, RN Infection Prevention: rest/sleep promoted Goal: Optimal Comfort and Wellbeing Outcome: Not Progressing Goal: Readiness for Transition of Care Outcome: Not Progressing * Plan of Care - Spencer Ordoñez RN - 07/28/2024 11:37 PM CDT Assessments: Alert, uncooperative at times, confused, known history of autism. On 3L O2/nc. Denies pain. Vomitedx1 with NG insertion. Incontinent bm and urine upon arrival to floor. PIV covered with stockinette. Major Shift Events: NG was placed on right nostril together with colleague RN and pt's parents at bedside, was successfully inserted but patient suddenly pulled NG, attempted to reinsert but was unsuccessful, relief charge nurse and oncoming shift nurse notified. Treatment Plan: IVF, Zosyn, NG placement pending Bedside Nurse: Spencer Ordoñez RN Problem: Adult Inpatient Plan of Care Goal: Plan of Care Review Description: The Plan of Care Review/Shift note should be completed every shift. The Outcome Evaluation is a brief statement about your assessment that the patient is improving, declining, or no change. This information will be displayed automatically on your shift note. Outcome: Progressing Flowsheets (Taken 07/28/2024 1186) Outcome Evaluation: mid 90s with 2L O2, uncooperative at times, tends to pull contraptions Plan of Care Reviewed With: patient Overall Patient Progress: no change Goal: Patient-Specific Goal (Individualized) Description: You can add care plan individualizations to a care plan. Examples of Individualizationmight be: Parent requests to be called daily at 9am for status, I have a hard time hearing out of my right ear, or Do not touch me to wake me up as it startles me. Outcome: Progressing Goal: Absence of Hospital-Acquired Illness or Injury Outcome: Progressing Goal: Optimal Comfort and Wellbeing Outcome: Progressing Goal: Readiness for Transition of Care Outcome: Progressing Goal Outcome Evaluation: Plan of Care Reviewed With: patient Overall Patient Progress: no change Outcome Evaluation: mid 90s with 2L O2, uncooperative at times, tends to pull contraptions documented in this encounter Plan of Treatment Scheduled Referrals Name Type Priority Associated Diagnoses Orde r Schedule Home Care Referral Referral Routine: Next available opening Small bowel obstruction (H) Ordered: 08/04/2024 documented as of this encounter Procedures Procedure Name Priority Date/Time Associated Diagnosis Comments MANUAL DIFFERENTIAL Routine 08/03/2024 8 :44 PM CDT RBC AND PLATELET MORPHOLOGY Routine 08/03/2024 8:44 PM CDT CBC WITH PLATELETS AND DIFFERENTIAL Routine 08/03/2024 8:44 PM CDT CBC WITH PLATELETS & DIFFERENTIAL Routine 08/03/2024 8:44 PM CDT OVERNIGHT OXIMETRY STUDY Routine 08/02/2024 3:13 PM CDT C. DIFFICILE TOXIN B PCR WITH REFLEX TO C. DIFFICILE EIA Routine 08/02/2024 12:17 PM CDT EXTRA GREEN TOP TUBE (LAB USE ONLY) Routine 08/02/2024 7:15 AM CDT POTASSIUM Add-On 08/02/2024 7:15 AM CDT CBC WITH PLATELETS Routine 08/02/2024 7: 15 AM CDT POTASSIUM Timed 08/01/2024 8:08 PM CDT BASIC METABOLIC PANEL Routine 08/01/2024 10:08 AM CDT CBC WITH PLATELETS Routine 08/01/2024 10 :08 AM CDT POTASSIUM Timed 07/31/2024 2:12 AM CDT POTASSIUM Timed 07/30/2024 5:01 PM CDT XR ABDOMEN 1 VIEW Routine 07/30/2024 8:5 7 AM CDT POTASSIUM Timed 07/30/2024 8:09 AM CDT BASIC METABOLIC PANEL Routine 07/30/2024 8:09 AM CDT CBC WITH PLATELETS Routine 07/30/2024 8: 09 AM CDT POTASSIUM Timed 07/30/2024 2:09 AM CDT XR GASTROGRAFIN CHALLENGE Routine 07/29/2024 6:56 PM CDT RENAL PANEL Routine 07/29/2024 7:38 AM CDT CBC WITH PLATELETS Routine 07/29/2024 7: 38 AM CDT documented in this encounter Results * (ABNORMAL) Manual Differential (08/03/2024 8:44 PM CDT) % Neutrophils 41 % [facility] 08/07/2024 2:02 PM CDT [facility] % Lymphocytes 38 % [facility] 08/07/2024 2:02 PM CDT [facility] % Monocytes 12 % [facility] 08/07/2024 2:02 PM CDT [facility] % Eosinophils 8 % [facility] 08/07/2024 2:02 PM CDT [facility] % Basophils 1 % [facility] 08/07/2024 2:02 PM CDT LABORATORY Absolute Neutrophils 7.4 1.6 - 8.3 10e3/uL [facility] 08/07/2024 2:02 PM CDT LABORATORY Absolute Lymphocytes 6.8(H) 0.8 - 5.3 10e3/uL [facility] 08/07/2024 2:02 PM CDT LABORATORY Absolute Monocytes 2.2(H) 0.0 - 1.3 10e3/uL [facility] 08/07/2024 2:02 PM CDT [facility] Absolute Eosinophils 1.4(H) 0.0 - 0.7 10e3/uL [facility] 08/07/2024 2:02 PM CDT [facility] Absolute Basophils 0.2 0.0 - 0.2 10e3/uL [facility] 08/07/2024 2:02 PM CDT LABORATORY Pathologist Review Comments (Blood) Atypical lymphocytosis with scattered damage so-called smudge cells. Recommend flow cytometry to rule out a possible low-grade lymphoproliferative neoplasm if the findings persist. Pathologist review performed by Zoran Brady MD on 08/06/2024. [facility] 08/07/2024 2:02 PM CDT LABORATORY Blood STRUCTURE OF LEFT UPPER LIMB / Unknown Venipuncture / Unknown 08/03/2024 8:44 PM CDT 08/03/2024 8:47 PM CDT Narrative LABORATORY - 08/07/2024 2:02 PM CDT Sent for review by Pathologist. See Pathologist comments after review. José Luis Valderrama MD LAB - BLOOD ORDERABLES Final Result LABORATORY [facility] [address] [facility] (1st floor, no room number) [place] [address], [place] LABORATORY [facility] [address], [address] [place] [address], [place] [phone] * (ABNORMAL) RBC and Platelet Morphology (08/03/2024 8:44 PM CDT) RBC Morphology Confirmed RBC Indices 08/07/2024 2:02 PM CDT LABORATORY Platelet Assessment Automated Count Confirmed. Platelet morphology is normal. Automated Count Confirmed. Platelet morphology is normal. [facility] 08/07/2024 2:02 PM CDT [facility] Reactive Lymphocytes Present(A) None Seen [facility] 08/07/2024 2:02 PM CDT [facility] Smudge Cells Present(A) None Seen DELIA 08/07/2024 2:02 PM CDT [facility] Blood STRUCTURE OF LEFT UPPER LIMB / Unknown Venipuncture / Unknown 08/03/2024 8:44 PM CDT 08/03/2024 8:47 PM CDT us José Luis Valderrama MD LAB - BLOOD ORDERABLES Final Result [facility] [address] Lab (1st floor, no room number) [place] [address], [facility] * (ABNORMAL) CBC with platelets and differential (08/03/2024 8:44 PM CDT) WBC Count 18.0(H) 4.0 - 11.0 10e3/uL 08/07/2024 2:02 PM CDT [facility] RBC Count 4.94 3.80 - 5.20 10e6/uL 08/07/2024 2:02 PM CDT [facility] Hemoglobin 14.8 11.7 - 15.7 g/dL 08/07/2024 2:02 PM CDT [facility] Hematocrit 43.7 35.0 - 47.0 % 08/07/2024 2:02 PM CDT [facility] MCV 89 78 - 100 fL 08/07/2024 2:02 PM CDT [facility] MCH 30.0 26.5 - 33.0 pg 08/07/2024 2:02 PM CDT [facility] MCHC 33.9 31.5 - 36.5 g/dL 08/07/2024 2:02 PM CDT [facility] RDW 14.8 10.0 - 15.0 % 08/07/2024 2:02 PM CDT [facility] Platelet Count 251 150 - 450 10e3/uL 08/07/2024 2:02 PM CDT [facility] Blood STRUCTURE OF LEFT UPPER LIMB / Unknown Venipuncture / Unknown 08/03/2024 8:44 PM CDT 08/03/2024 8:47 PM CDT José Luis Valderrama MD LAB - BLOOD ORDERABLES Final Result [facility] [address] [facility] Lab (1st floor, no room number) [place] [address], [facility] * C. difficile Toxin B PCR with reflex to C. difficile EIA (08/02/2024 12:17 PM CDT) C Difficile Toxin B by PCR Negative Negative 08/02/2024 4:21 PM CDT [facility] Comment:A negative result do es not exclude actual disease due to C. difficile and may be due to improper collection, handling and storage of the specimen or the number of organisms in the specimen is below the detection limit of the assay. Stool RECTAL CONTENTS / Unknown Non-blood Collection / Unknown 08/02/2024 12:17 PM CDT 08/02/2024 12:28 PM CDT Narrative [facility] - 08/02/2024 4:21 PM CDT The [employer] Xpert C. difficile Assay, performed on the [employer], is a qualitative in vitro diagnostic test for rapid detection of toxin B gene sequences from unformed (liquid or soft) stool specimens collected from patients suspected of having Clostridioides difficile infection (CDI). The test utilizes automated real-time polymerase chain reaction (PCR) to detect toxin gene sequences associated with toxin producing C. difficile. The Xpert C. difficile Assay is intended as an aid in the diagnosis of CDI. José Luis Valderrama MD LAB - MICRO GENERAL OR DERABLES Final Result [facility] Inf. Diseases Diag. Lab [address] [place] [address], [facility] * Potassium (08/02/2024 7:15 AM CDT) Potassium 4.0 3.4 - 5.3 mmol/L 08/02/2024 8:33 AM CDT [facility] Blood STRUCTURE OF RIGHT HAND / Unknown Venipuncture / Unknown 08/02/2024 7:15 AM CDT 08/02/2024 7:33 AM CDT José Luis Valderrama MD LAB - BLOOD ORDERABLES Final Result LABORATORY [facility] [address] Lab (1st floor, no room number) [place] [address] * Extra Green Top Tube (LAB USE ONLY) (08/02/2024 7:15 AM CDT) [facility] Hold Specimen JIC 08/02/2024 8:46 AM CDT LABORATORY Blood STRUCTURE OF RIGHT HAND / Unknown Venipuncture / Unknown 08/02/2024 7:15 AM CDT 08/02/2024 7:33 AM CDT Oscar Brothers MD LAB - BLOOD ORDER JD Final Result [facility] [address] Lab (1st floor, no room number) [place] [address] * (ABNORMAL) CBC with platelets (08/02/2024 7:15 AM CDT) [facility] WBC Count 17.8(H) 4.0 - 11.0 10e3/uL 08/02/2024 8:07 AM CDT [facility] RBC Count 5.02 3.80 - 5.20 10e6/uL 08/02/2024 8:07 AM CDT [facility] Hemoglobin 15.1 11.7 - 15.7 g/dL 08/02/2024 8:07 AM CDT [facility] Hematocrit 43.2 35.0 - 47.0 % 08/02/2024 8:07 AM CDT [facility] MCV 86 78 - 100 fL 08/02/2024 8:07 AM CDT [facility] MCH 30.1 26.5 - 33.0 pg 08/02/2024 8:07 AM CDT [facility] MCHC 35.0 31.5 - 36.5 g/dL 08/02/2024 8:07 AM CDT [facility] RDW 14.2 10.0 - 15.0 % 08/02/2024 8:07 AM CDT [facility] Platelet Count 249 150 - 450 10e3/uL 08/02/2024 8:07 AM CDT [facility] Blood STRUCTURE OF RIGHT HAND / Unknown Venipuncture / Unknown 08/02/2024 7:15 AM CDT 08/02/2024 7:33 AM CDT José Luis Valderrama MD LAB - BLOOD ORDERABLES Final Result Performing Organization Address [facility] Co de Phone Number [facility] [address] Lab (1st floor, no room number) [place] [phone] [place] [address] * Potassium (08/01/2024 8:08 PM CDT) [facility] Potassium 4.5 3.4 - 5.3 mmol/L 08/01/2024 8:52 PM CDT [facility] Comment:Specimen moderately hemolyzed. The reported potassium value *IS LIKELY TO BE FALSELY ELEVATED* and should be interpreted with caution for clinical decision making. Analysis of a non-hemolyzed specimen (i.e. re-draw) may result in a lower potassium value. Blood STRUCTURE OF LEFT UPPER LIMB / Unknown Venipuncture / Unknown 08/01/2024 8:08 PM CDT 08/01/2024 8:25 PM CDT José Luis Valderrama MD LAB - BLOOD ORDERABLES Final Result Performing Organization Address City/[facility]/ZIP Co de Phone Number LABORATORY [facility] [address] Lab (1st floor, no room number) [place] [phone] * (ABNORMAL) Basic metabolic panel (08/01/2024 10:08 AM CDT) Sodium 139 135 - 145 mmol/L 08/01/2024 10:52 AM CDT LABORATORY Potassium 3.4 3.4 - 5.3 mmol/L 08/01/2024 10:52 AM CDT LABORATORY Chloride 109(H) 98 - 107 mmol/L 08/01/2024 10:52 AM CDT LABORATORY Carbon Dioxide (CO2) 22 22 - 29 mmol/L 08/01/2024 10:52 AM CDT LABORATORY Anion Gap 8 7 - 15 mmol/L 08/01/2024 10:52 AM CDT LABORATORY Urea Nitrogen 3.5(L) 6.0 - 20.0 mg/dL 08/01/2024 10:52 AM CDT LABORATORY Creatinine 0.30(L) 0.51 - 0.95 mg/dL 08/01/2024 10:52 AM CDT LABORATORY GFR Estimate >90 >60 mL/min/1.7 3m2 08/01/2024 10:52 AM CDT LABORATORY Comment:eGFR calculated usin g 2020 CKD-EPI equation. Calcium 8.2(L) 8.8 - 10.4 mg/dL 08/01/2024 10:52 AM CDT LABORATORY Glucose 78 70 - 99 mg/dL 08/01/2024 10:52 AM CDT LABORATORY Blood STRUCTURE OF RIGHT HAND / Unknown Venipuncture / Unknown 08/01/2024 10:08 AM CDT 08/01/2024 10:13 AM CDT José Luis Valderrama MD LAB - BLOOD ORDERABLES Final Result LABORATORY [facility] [address] Lab (1st floor, no room number) [place] [address], [facility] * (ABNORMAL) CBC with platelets (08/01/2024 10:08 AM CDT) WBC Count 18.5(H) 4.0 - 11.0 10e3/uL 08/01/2024 10:29 AM CDT LABORATORY RBC Count 5.08 3.80 - 5.20 10e6/uL 08/01/2024 10:29 AM CDT [facility] Hemoglobin 15.2 11.7 - 15.7 g/dL 08/01/2024 10:29 AM CDT [facility] Hematocrit 44.9 35.0 - 47.0 % 08/01/2024 10:29 AM CDT [facility] MCV 88 78 - 100 fL 08/01/2024 10:29 AM CDT [facility] MCH 29.9 26.5 - 33.0 pg 08/01/2024 10:29 AM CDT [facility] MCHC 33.9 31.5 - 36.5 g/dL 08/01/2024 10:29 AM CDT [facility] RDW 14.2 10.0 - 15.0 % 08/01/2024 10:29 AM CDT [facility] Platelet Count 228 150 - 450 10e3/uL 08/01/2024 10:29 AM CDT LABORATORY Blood STRUCTURE OF RIGHT HAND / Unknown Venipuncture / Unknown 08/01/2024 10:08 AM CDT 08/01/2024 10:13 AM CDT José Luis Valderrama MD LAB - BLOOD ORDERABLES Final Result LABORATORY [facility] [address] [facility] Lab (1st floor, no room number) [place] [address] * Potassium (07/31/2024 2:12 AM CDT) [facility] Potassium 4.8 3.4 - 5.3 mmol/L 07/31/2024 2:58 AM CDT [facility] Comment:Specimen moderately hemolyzed. The reported potassium value *IS LIKELY TO BE FALSELY ELEVATED* and should be interpreted with caution for clinical decision making. Analysis of a non-hemolyzed specimen (i.e. re-draw) may result in a lower potassium value. Blood BLOOD SPECIMEN / Unknown Venipuncture / Unknown 07/31/2024 2:12 AM CDT 07/31/2024 2:15 AM CDT José Luis Valderrama MD LAB - BLOOD ORDERABLES Final Result LABORATORY [facility] [address] Lab (1st floor, no room number) [place] [address], [facility] * (ABNORMAL) Potassium (07/30/2024 5:01 PM CDT) Potassium 3.1(L) 3.4 - 5.3 mmol/L 07/30/2024 5:31 PM CDT LABORATORY Blood STRUCTURE OF LEFT HAND / Unknown Venipuncture / Unknown 07/30/2024 5:01 PM CDT 07/30/2024 5:07 PM CDT José Luis Valderrama MD LAB - BLOOD ORDERABLES Final Result Performing Organization Address [facility]/ZIP Co de Phone Number LABORATORY [facility] [address] Lab (1st floor, no room number) [place] [address] * XR Abdomen 1 View (07/30/2024 8:57 AM CDT) Anatomical Region Laterality Modality Abdomen/Pelvis Digital Radiogra phy 07/30/2024 8:57 AM CDT Impressions 07/30/2024 9:12 AM CDT IMPRESSION: Progression of Gastrografin since yesterday, with increased volume of contrast in the colon. Overall decrease in caliber of small bowel loops however some segments remain dilated. Nothing for free air on these supine only radiographs. Narrative 07/30/2024 9:12 AM CDT EXAM: XR ABDOMEN 1 VIEW LOCATION: [facility] DATE: 07/30/2024 INDICATION: follow up gastrografin challenge COMPARISON: Radiographs 07/29/2024 Procedure Note Hector Richardson MD - 07/30/2024 EXAM: XR ABDOMEN 1 VIEW LOCATION: [facility] DATE: 07/30/2024 INDICATION: follow up gastrografin challenge COMPARISON: Radiographs 07/29/2024 IMPRESSION: Progression of Gastrografin since yesterday, with increasedvolume of contrast in the colon. Overall decrease in caliber of smallbowel loops however some segments remain dilated. Nothing for free air onthese supine only radiographs. us Frantz Crespo MD IMG DIAGNOSTIC IMAGING ORDERABLES Final Result * Potassium (07/30/2024 8:09 AM CDT) Potassium 3.4 3.4 - 5.3 mmol/L 07/30/2024 8:43 AM CDT LABORATORY Blood STRUCTURE OF LEFT HAND / Unknown Venipuncture / Unknown 07/30/2024 8:09 AM CDT 07/30/2024 8:24 AM CDT Oscar Brothers MD LAB - BLOOD ORDER JD Final Result LABORATORY [facility] [address] Lab (1st floor, no room number) [place] [address] * (ABNORMAL) Basic metabolic panel (07/30/2024 8:09 AM CDT) Sodium 155(H) 135 - 145 mmol/L 07/30/2024 8:55 AM CDT LABORATORY Potassium 3.4 3.4 - 5.3 mmol/L 07/30/2024 8:55 AM CDT LABORATORY Chloride 116(H) 98 - 107 mmol/L 07/30/2024 8:55 AM CDT LABORATORY Carbon Dioxide (CO2) 23 22 - 29 mmol/L 07/30/2024 8:55 AM CDT LABORATORY Anion Gap 16(H) 7 - 15 mmol/L 07/30/2024 8:55 AM CDT LABORATORY Urea Nitrogen 15.1 6.0 - 20.0 mg/dL 07/30/2024 8:55 AM CDT LABORATORY Creatinine 0.39(L) 0.51 - 0.95 mg/dL 07/30/2024 8:55 AM CDT LABORATORY GFR Estimate >90 >60 mL/min/1.7 3m2 07/30/2024 8:55 AM CDT LABORATORY Comment:eGFR calculated usin 2020 CKD-EPI equation. Calcium 9.1 8.8 - 10.4 mg/dL 07/30/2024 8:55 AM CDT [facility] Glucose 127(H) 70 - 99 mg/dL 07/30/2024 8:55 AM CDT [facility] Blood STRUCTURE OF LEFT HAND / Unknown Venipuncture / Unknown 07/30/2024 8:09 AM CDT 07/30/2024 8:24 AM CDT José Luis Valderrama MD LAB - BLOOD ORDERABLES Final Result [facility] [address] [facility] Lab (1st floor, no room number) [place] [address] * (ABNORMAL) CBC with platelets (07/30/2024 8:09 AM CDT) WBC Count 9.8 4.0 - 11.0 10e3/uL 07/30/2024 8:27 AM CDT [facility] RBC Count 5.21(H) 3.80 - 5.20 10e6/uL 07/30/2024 8:27 AM CDT [facility] Hemoglobin 15.5 11.7 - 15.7 g/dL 07/30/2024 8:27 AM CDT [facility] Hematocrit 47.3(H) 35.0 - 47.0 % 07/30/2024 8:27 AM CDT [facility] MCV 91 78 - 100 fL 07/30/2024 8:27 AM CDT [facility] MCH 29.8 26.5 - 33.0 pg 07/30/2024 8:27 AM CDT [facility] MCHC 32.8 31.5 - 36.5 g/dL 07/30/2024 8:27 AM CDT [facility] RDW 14.4 10.0 - 15.0 % 07/30/2024 8:27 AM CDT [facility] Platelet Count 266 150 - 450 10e3/uL 07/30/2024 8:27 AM CDT [facility] Blood STRUCTURE OF LEFT HAND / Unknown Venipuncture / Unknown 07/30/2024 8:09 AM CDT 07/30/2024 8:24 AM CDT José Luis Valderrama MD LAB - BLOOD ORDERABLES Final Result [facility] [address] Lab (1st floor, no room number) [place] [address] * (ABNORMAL) Potassium (07/30/2024 2:09 AM CDT) Potassium 3.1(L) 3.4 - 5.3 mmol/L 07/30/2024 2:51 AM CDT LABORATORY Blood STRUCTURE OF LEFT HAND / Unknown Venipuncture / Unknown 07/30/2024 2:09 AM CDT 07/30/2024 2:27 AM CDT José Luis Valderrama MD LAB - BLOOD ORDERABLES Final Result Performing Organization Address [facility]/ZIP Co de Phone Number [facility] [address] Lab (1st floor, no room number) [place] [address], [facility] * XR Gastrografin Challenge (07/29/2024 6:56 PM CDT) Anatomical Region Laterality Modality Abdomen/Pelvis Digital Radiogra phy 07/29/2024 6:56 PM CDT Impressions 07/29/2024 10:29 PM CDT IMPRESSION: 1. Uneventful small amount of contrast identified within the ascending and descending colon 8 hours post administration. 2. Contrast filled loops of dilated small bowel noted throughout the abdomen compatible with obstruction. Narrative 07/29/2024 10:29 PM CDT EXAM: XR GASTROGRAFIN CHALLENGE LOCATION: [facility] DATE: 07/29/2024 INDICATION: Small Bowel Obstruction COMPARISON: None. TECHNIQUE: Routine water soluble contrast follow-through challenge. Procedure Note Paco Castro MD - 07/29/2024 EXAM: XR GASTROGRAFIN CHALLENGE LOCATION: [facility] DATE: 07/29/2024 INDICATION: Small Bowel Obstruction COMPARISON: None. TECHNIQUE: Routine water soluble contrast follow-through challenge. IMPRESSION: 1. Uneventful small amount of contrast identified within the ascendingand descending colon 8 hours post administration. 2. Contrast filled loops of dilated small bowel noted throughout theabdomen compatible with obstruction. Frantz Crespo MD IMG DIAGNOSTIC IMAGING ORDERABLES Final Result * (ABNORMAL) Renal panel (07/29/2024 7:38 AM CDT) Sodium 146(H) 135 - 145 mmol/L 07/29/2024 8:08 AM CDT LABORATORY Potassium 2.9(L) 3.4 - 5.3 mmol/L 07/29/2024 8:08 AM CDT LABORATORY Chloride 107 98 - 107 mmol/L 07/29/2024 8:08 AM CDT LABORATORY Carbon Dioxide (CO2) 22 22 - 29 mmol/L 07/29/2024 8:08 AM T LABORATORY Anion Gap 17(H) 7 - 15 mmol/L 07/29/2024 8:08 AM T LABORATORY Glucose 148(H) 70 - 99 mg/dL 07/29/2024 8:08 AM CDT LABORATORY Urea Nitrogen 16.6 6.0 - 20.0 mg/dL 07/29/2024 8:08 AM CDT LABORATORY Creatinine 0.46(L) 0.51 - 0.95 mg/dL 07/29/2024 8:08 AM CDT LABORATORY GFR Estimate >90 >60 mL/min/1.7 3m2 07/29/2024 8:08 AM CDT LABORATORY Comment:eGFR calculated usin g 2020 CKD-EPI equation. Calcium 8.7(L) 8.8 - 10.4 mg/dL 07/29/2024 8:08 AM CDT LABORATORY Albumin 3.5 3.5 - 5.2 g/dL 07/29/2024 8:08 AM CDT LABORATORY Phosphorus 2.0(L) 2.5 - 4.5 mg/dL 07/29/2024 8:08 AM T LABORATORY Blood STRUCTURE OF LEFT HAND / Unknown Venipuncture / Unknown 07/29/2024 7:38 AM CDT 07/29/2024 7:45 AM CDT us Toby Finch MD LAB - BLOOD ORDERABLES Final Result LABORATORY [facility] [address] Lab (1st floor, no room number) [place] [address] * (ABNORMAL) CBC with platelets (07/29/2024 7:38 AM CDT) [facility] WBC Count 7.6 4.0 - 11.0 10e3/uL 07/29/2024 7:52 AM CDT [facility] RBC Count 5.62(H) 3.80 - 5.20 10e6/uL 07/29/2024 7:52 AM CDT [facility] Hemoglobin 16.6(H) 11.7 - 15.7 g/dL 07/29/2024 7:52 AM CDT [facility] Hematocrit 51.4(H) 35.0 - 47.0 % 07/29/2024 7:52 AM CDT [facility] MCV 92 78 - 100 fL 07/29/2024 7:52 AM CDT [facility] MCH 29.5 26.5 - 33.0 pg 07/29/2024 7:52 AM CDT [facility] MCHC 32.3 31.5 - 36.5 g/dL 07/29/2024 7:52 AM CDT [facility] RDW 14.1 10.0 - 15.0 % 07/29/2024 7:52 AM CDT [facility] Platelet Count 250 150 - 450 10e3/uL 07/29/2024 7:52 AM CDT [facility] Blood STRUCTURE OF LEFT HAND / Unknown Venipuncture / Unknown 07/29/2024 7:38 AM CDT 07/29/2024 7:45 AM CDT us Toby Finch MD LAB - BLOOD ORDERABLES Final Result LABORATORY [facility] [address] Lab (1st floor, no room number) [place] [address], [facility] documented in this encounter Visit Diagnoses Diagnosis Small bowel obstruction (H)- Primary Unspecified intestinal obstruction Small bowel obstruction (H) Unspecified intestinal obstruction documented in this encounter Admitting Diagnoses Diagnosis Small bowel obstruction (H) Unspecified intestinal obstruction documented in this encounter Administered Medications Inactive Administered Medications - up to 3 most recent administrations Medication Order MAR Action Action Date Dose Rate Site acetaminophen (TYLENOL) Suppository 650 mg 650 mg (22.7 mg/kg), Rectal, EVERY 4 HOURS PRN, mild pain, other, and adjunct with moderate or severe pain or per patient request, Starting on 07/28/24 at 2130, Alternate with ibuprofen if ordered. Maximum acetaminophen dose from all sources = 75 mg/kg/day not to exceed 4 grams/day. acetaminophen (TYLENOL) tablet 650 mg 650 mg (22.7 mg/kg), Oral, EVERY 4 HOURS PRN, mild pain, other, and adjunct with moderate or severe pain or per patient request, Starting on 07/28/24 at 2130, Alternate with ibuprofen if ordered. Maximum acetaminophen dose from all sources = 75 mg/kg/day not to exceed 4 grams/day. amoxicillin-clavulanate (AUGMENTIN) 875-125 MG per tablet 1 tablet Routine, 1 tablet, Oral, EVERY 12 HOURS SCHEDULED, First dose on Tue08/03/24 at 1100, For 3 doses, Indications: Aspiration PneumoniaIndications:Aspiration Pneumonia $Given 08/04/2024 8:19 AM CDT 1 tablet $Given 08/03/2024 8:17 PM CDT 1 tablet $Given 08/03/2024 12:02 PM CDT 1 tablet diatrizoate meglumine-sodium (GASTROGRAFIN) 120 mL in sterile water (bottle) 150 mL 150 mL, Oral, ONCE, On Tue07/29/24 at 0900, For 1 dose, When administered via the oral route, patient should drink the full volume of contrast within a 5-minute period. $Given 07/29/2024 9:59 AM CDT 150 mLs lactated ringers infusion at 100 mL/hr, Intravenous, CONTINUOUS, Starting on 07/28/24 at 2200, Until 08/01/24 at 1733 $New Bag 08/01/2024 5:34 AM CDT 100 mL/hr Rate/Dose Verify 08/01/2024 12:26 AM CDT 100 mL /hr Rate/Dose Verify 07/30/2024 7:53 PM CDT 100 mL/ hr lidocaine (LMX4) cream Topical, EVERY 1 HOUR PRN, pain, with VAD insertion, Starting on 07/28/24 at 7, Apply at least 30 minutes prior to VAD insertion in divided doses as needed for size of site for insertion. MAX Dose: 2.5 g ( of 5 g tube) Do NOT give if patient has a history of allergy to any local anesthetic or any bj product. Do NOT use both lidocaine intradermal/subcutaneous injection and the lidocaine cream on the same site. lidocaine 1 % 0.1-1 mL 0.1-1 mL, Other, EVERY 1 HOUR PRN, mild pain with VAD insertion, Starting on 07/28/24 at 2126, MAX dose 1 mL subcutaneous OR intradermal along the side of the vein in divided doses as needed for VAD insertion. Do NOT give if patient has a history of allergy to any local anesthetic or any bj product. Do NOT use both lidocaine intradermal/subcutaneous injection and the lidocaine cream on the same site. melatonin tablet 5 mg 5 mg (0.175 mg/kg), Oral, AT BEDTIME PRN, sleep, Starting on 07/28/24 at 2131, Do not give unless at least 6 hours of uninterrupted sleep is expected. If patient has multiple medications ordered PRN sleep/insomnia, offer melatonin first. morphine (PF) injection 1 mg 1 mg (0.035 mg/kg), Intravenous, EVERY 2 HOURS PRN, moderate pain, IF patient cannot take oral opioid OR IF pain not managed with non-pharmacological, non-opioid, or oral opioid interventions if ordered, Starting on 07/28/24 at 2131, May use concomitant with non-opioid analgesics. morphine (PF) injection 2 mg 2 mg (0.0699 mg/kg), Intravenous, EVERY 2 HOURS PRN, severe pain, IF patient cannot take oral opioid OR IF pain not managed with non-pharmacological, non-opioid, or oral opioid interventions if ordered, Starting on 07/28/24 at 2131, May use concomitant with non-opioid analgesics. naloxone (NARCAN) injection 0.2 mg 0.2 mg (0.53578 mg/kg), Intravenous, EVERY 2 MIN PRN, opioid reversal, Starting on 07/28/24 at 2141, Administer intravenous route when available and notify provider when administered. For unintended sedation or respiratory depression if all of the below criteria are met: ~ respiratory rate LESS than or EQUAL to 8. ~SaO2 less than 92% and or/end-tidal CO2 is greater than 50. ~ the patient is receiving an opioid, has unintended sedations assessed as RASS (-3), and is currently not on mechanical ventilation. RASS scale moderate (-3) is movement or eye opening to voice but no eye contact. Patient Monitoring Once the patient has demonstrated a response to the naloxone, continue to monitor respiratory rate, depth, oxygen saturation and end-tidal CO2 (if available) every 15 minutes x 2, then every 30 minutes x 2, then every 1 hour x 1 after each naloxone dose. Consider transfer to ICU if patient respiratory parameters have not improved after 4 naloxone doses. naloxone (NARCAN) injection 0.2 mg 0.2 mg (0.09458 mg/kg), Intramuscular, EVERY 2 MIN PRN, opioid reversal, Starting on 07/28/24 at 2141, Administer intramuscular if an intravenous route is not available and notify provider when administered. For unintended sedation or respiratory depression if all of the below criteria are met: ~ respiratory rate LESS than or EQUAL to 8. ~SaO2 less than 92% and or/end-tidal CO2 is greater than 50. ~ the patient is receiving an opioid, has unintended sedations assessed as RASS (-3), and is currently not on mechanical ventilation. RASS scale moderate (-3) is movement or eye opening to voice but no eye contact. Patient Monitoring Once the patient has demonstrated a response to the naloxone, continue to monitor respiratory rate, depth, oxygen saturation and end-tidal CO2 (if available) every 15 minutes x 2, then every 30 minutes x 2, then every 1 hour x 1 after each naloxone dose. Consider transfer to ICU if patient respiratory parameters have not improved after 4 naloxone doses. naloxone (NARCAN) injection 0.4 mg 0.4 mg (0.014 mg/kg), Intravenous, EVERY 2 MIN PRN, opioid reversal, Starting on 07/28/24 at 2141, Administer intravenous route when available and notify provider when administered. For unintended sedation or respiratory depression if all of the below criteria are met: ~ respiratory rate LESS than or EQUAL to 8. ~ SaO2 less than 92% and or/end-tidal CO2 is greater than 50. ~ the patient is receiving an opioid, has unintended sedation assessed as RASS (-4) or (-5) and patient is currently not on mechanical ventilation. RASS scale (-4) is deep sedation with no response to voice but movement or eye opening to physical stimulation. RASS scale (-5) is unarousable. Patient Monitoring Once the patient has demonstrated a response to the naloxone, continue to monitor respiratory rate, depth, oxygen saturation and end-tidal CO2 (if available) every 15 minutes x 2, then every 30 minutes x 2, then every 1 hour x 1 after each naloxone dose. Consider transfer to ICU if patient respiratory parameters have not improved after 4 naloxone doses. naloxone (NARCAN) injection 0.4 mg 0.4 mg (0.014 mg/kg), Intramuscular, EVERY 2 MIN PRN, opioid reversal, Starting on 07/28/24 at 2141, Administer intramuscular if an intravenous route is not available and notify provider when administered. For unintended sedation or respiratory depression if all of the below criteria are met: ~ respiratory rate LESS than or EQUAL to 8. ~ SaO2 less than 92% and or/end-tidal CO2 is greater than 50. ~ the patient is receiving an opioid, has unintended sedation assessed as RASS (-4) or (-5) and patient is currently not on mechanical ventilation. RASS scale (-4) is deep sedation with no response to voice but movement or eye opening to physical stimulation. RASS scale (-5) is unarousable. Patient Monitoring Once the patient has demonstrated a response to the naloxone, continue to monitor respiratory rate, depth, oxygen saturation and end-tidal CO2 (if available) every 15 minutes x 2, then every 30 minutes x 2, then every 1 hour x 1 after each naloxone dose. Consider transfer to ICU if patient respiratory parameters have not improved after 4 naloxone doses. ondansetron (ZOFRAN ODT) ODT tab 4 mg 4 mg (0.14 mg/kg), Oral, EVERY 6 HOURS PRN, nausea/vomiting - 1st line, Starting on 07/28/24 at 2131, This is Step 1 of nausea and vomiting management. If nausea not resolved in 15 minutes, go to Step 2 prochlorperazine (COMPAZINE). With dry hands, peel back foil backing and gently remove tablet. Do not push oral disintegrating tablet through foil backing. Administer immediately on tongue and oral disintegrating tablet dissolves in seconds, then swallow with saliva. Liquid not required. ondansetron (ZOFRAN) injection 4 mg 4 mg (0.14 mg/kg), Intravenous, EVERY 6 HOURS PRN, nausea/vomiting - 1st line, Administer over 2-5 Minutes, Starting on 07/28/24 at 2131, Give IF patient unable to tolerate oral medication. This is Step 1 of nausea and vomiting management. If nausea not resolved in 15 minutes, go to Step 2 prochlorperazine (COMPAZINE). $Given 07/29/2024 8:37 PM CDT 4 mg oxyCODONE (ROXICODONE) tablet 5 mg 5 mg (0.175 mg/kg), Oral, EVERY 4 HOURS PRN, severe pain, IF pain not managed with non-pharmacological and non-opioid interventions, Starting on 07/28/24 at 2130, May use concomitant with non-opioid analgesics. oxyCODONE IR (ROXICODONE) half-tab 2.5 mg 2.5 mg (0.0874 mg/kg), Oral, EVERY 4 HOURS PRN, moderate pain, IF pain not managed with non-pharmacological and non-opioid interventions, Starting on 07/28/24 at 2130, May use concomitant with non-opioid analgesics. piperacillin-tazobactam (ZOSYN) 3.375 g vial to attach to NS 100 mL bag Routine, 3.375 g (0.118 g/kg), Intravenous, EVERY 6 HOURS, First dose on 07/29/24 at 0000, Lactated Ringer's solution is not compatible with piperacillin-tazobactam for injection., Indications: Aspiration PneumoniaIndications:Aspiration Pneumonia $New Bag 08/03/2024 5:38 AM CDT 3.375 g $New Bag 08/03/2024 12:03 AM CDT 3.375 g $New Bag 08/02/2024 6:51 PM CDT 3.375 g potassium chloride (KLOR-CON) Packet 20 mEq 20 mEq, Oral or Feeding Tube, ONCE, On 07/29/24 at 2030, For 1 dose, Potassium level 2.7 - 3 mmol/L Ordered from the Potassium replacement order set. Dissolve packet contents in 4-8 ounces of cold water or juice., Potassium Replacement: Potassium level 2.7-3 mmol/L, Recheck: Potassium level 4 hours AFTER last oral or feeding tube dose $Given 07/29/2024 8:46 PM CDT 20 mEq potassium chloride (KLOR-CON) Packet 40 mEq 40 mEq, Oral or Feeding Tube, ONCE, On Tue07/29/24 at 1830, For 1 dose, Potassium level 2.7 - 3 mmol/L Ordered from the Potassium replacement order set. Dissolve packet contents in 4-8 ounces of cold water or juice., Potassium Replacement: Potassium level 2.7-3 mmol/L, Recheck: Potassium level 4 hours AFTER last oral or feeding tube dose $Given 07/29/2024 6:24 PM CDT 40 mEq potassium chloride (KLOR-CON) Packet 40 mEq 40 mEq, Oral or Feeding Tube, ONCE, On Tue07/30/24 at 0300, For 1 dose, Potassium level 3.1 - 3.4 mmol/L Ordered from the Potassium replacement order set. Dissolve packet contents in 4-8 ounces of cold water or juice., Potassium Replacement: Potassium level 3.1-3.4 mmol/L, Recheck: Potassium level 4 hours AFTER last oral or feeding tube dose $Given 07/30/2024 3:42 AM CDT 40 mEq potassium chloride 10 mEq in 100 mL sterile water infusion 10 mEq, Intravenous, Administer over 60 Minutes, at 100 mL/hr, EVERY HOUR, First dose on Tue07/30/24 at 1900, For 4 doses, Infuse via PERIPHERAL or CENTRAL LINE. Potassium level 3.1 - 3.4 mmol/L Administer 10 mEq potassium chloride IV x 4 doses and recheck potassium level 1-2 hours after last IV dose. Ordered from the Potassium replacement order set. $New Bag 07/30/2024 11:30 PM CDT 10 mEq 100 mL/hr $New Bag 07/30/2024 10:14 PM CDT 10 mEq 100 mL/hr $New Bag 07/30/2024 9:14 PM CDT 10 mEq 100 mL/hr potassium chloride 10 mEq in 100 mL sterile water infusion 10 mEq, Intravenous, Administer over 60 Minutes, at 100 mL/hr, EVERY HOUR, First dose on Tue08/01/24 at 1200, For 4 doses, Infuse via PERIPHERAL or CENTRAL LINE. Potassium level 3.1 - 3.4 mmol/L Administer 10 mEq potassium chloride IV x 4 doses and recheck potassium level 1-2 hours after last IV dose. Ordered from the Potassium replacement order set. $New Bag 08/01/2024 5:56 PM CDT 10 mEq 100 mL/hr $New Bag 08/01/2024 4:40 PM CDT 10 mEq 100 mL/hr $New Bag 08/01/2024 2:55 PM CDT 10 mEq 100 mL/hr potassium chloride omar ER (KLOR-CON M20) CR tablet 40 mEq 40 mEq, Oral, ONCE, On 07/30/24 at 1300, For 1 dose, Potassium level 3.1 - 3.4 mmol/L Ordered from the Potassium replacement order set. DO NOT CRUSH, Potassium Replacement: Potassium level 3.1-3.4 mmol/L, Recheck: Potassium level 4 hours AFTER last oral dose $Given 07/30/2024 1:53 PM CDT 40 mEq prochlorperazine (COMPAZINE) injection 10 mg 10 mg (0.35 mg/kg), Intravenous, EVERY 6 HOURS PRN, nausea/vomiting - 2nd line, Administer over 1-2 Minutes, Starting on 07/28/24 at 2131, IF patient unable to tolerate oral medication. This is Step 2 of nausea and vomiting management. Give if nausea not resolved 15 minutes after giving ondansetron (ZOFRAN). prochlorperazine (COMPAZINE) tablet 10 mg 10 mg (0.35 mg/kg), Oral, EVERY 6 HOURS PRN, nausea/vomiting - 2nd line, Starting on 07/28/24 at 2131, This is Step 2 of nausea and vomiting management. Give if nausea not resolved 15 minutes after giving ondansetron (ZOFRAN). senna-docusate (SENOKOT-S/PERICOLACE) 8.6-50 MG per tablet 1 tablet 1 tablet, Oral, 2 TIMES DAILY PRN, constipation, Starting on 07/28/24 at 2127, If no bowel movement in 24 hours, increase to 2 tablets by mouth. IF more than 1 constipation PRN medication is ordered, administer step-andrade as indicated, moving to the next step ONLY if prior step ineffective. Step 1: senna-docusate (SENOKOT-S; PERICOLACE) OR bisacodyl (DULCOLAX) EC tablet Step 2: polyethylene glycol (MIRALAX/GLYCOLAX) Step 3: bisacodyl (DULCOLAX) suppository Step 4: enema Hold for loose stools. senna-docusate (SENOKOT-S/PERICOLACE) 8.6-50 MG per tablet 2 tablet 2 tablet, Oral, 2 TIMES DAILY PRN, constipation, Starting on 07/28/24 at 2127, IF more than 1 constipation PRN medication is ordered, administer step-andrade as indicated, moving to the next step ONLY if prior step ineffective. Step 1: senna-docusate (SENOKOT-S; PERICOLACE) OR bisacodyl (DULCOLAX) EC tablet Step 2: polyethylene glycol (MIRALAX/GLYCOLAX) Step 3: bisacodyl (DULCOLAX) suppository Step 4: enema Hold for loose stools. sodium chloride (PF) 0.9% PF flush 3 mL 3 mL, Intracatheter, EVERY 1 MIN PRN, line flush, other, to ensure patency or to lock dormant line, Starting on 07/28/24 at 2127 $Given 08/02/2024 6:51 PM CDT 3 mLs sodium chloride (PF) 0.9% PF flush 3 mL 3 mL, Intracatheter, EVERY 8 HOURS SCHEDULED, First dose on 07/28/24 at 2200, to lock peripheral IV dormant line $Given 08/02/2024 3:10 PM CDT 3 m Ls $Given 08/02/2024 12:22 PM CDT 3 mLs $Given 08/02/2024 12:06 AM CDT 3 mLs documented in this encounter Active and Recently Administered Medications Times are shown in CDT. Scheduled Medication Order 08/02/2024 08/03/2024 08/04/2024 amoxicillin-clavulanat e (AUGMENTIN) 875-125 MG per tablet 1 tablet (COMPLETED) Routine, 1 tablet, Oral, EVERY 12 HOURS SCHEDULED, First dose on Tue08/03/24 at 1100, For 3 doses, Indications: Aspiration Pneumonia 1202 ($Given - Provider: Latisha Edgar RN)2017 ($Given - Provider: Medardo Butler RN) 0819 ($Given - Provider: Latisha Edgar RN) piperacillin-tazobacta m (ZOSYN) 3.375 g vial to attach to NS 100 mL bag (CANCELED) Routine, 3.375 g (0.118 g/kg), Intravenous, EVERY 6 HOURS, First dose on 07/29/24 at 0000, Lactated Ringer's solution is not compatible with piperacillin-tazobacta m for injection., Indications: Aspiration Pneumonia 0006 ($New Bag - Provider: Johann Cooley RN)0605 ($New Bag - Provider: Johann Cooley RN)1222 ($New Bag - Provider: Kanchan Kimball RN)1851 ($New Bag - Provider: Kanchan Kimball RN) 0003 ($New Bag - Provider: Johann Cooley RN)0538 ($New Bag - Provider: Johann Cooley RN) sodium chloride (PF) 0.9% PF flush 3 mL 3 mL, Intracatheter, EVERY 8 HOURS SCHEDULED, First dose on 07/28/24 at 2200, to lock peripheral IV dormant line 0006 ($Given - Provider: Johann Cooley RN)1222 ($Given - Provider: Kanchan Kimball RN)1510 ($Given - Provider: Kanchan Kimball RN) 0003 (Not Given - Provider: Johann Cooley RN - Reason: IV Infusing)1202 (Not Given - Provider: Latisha Edgar RN - Reason: Contraindicated)1718 (Not Given - Provider: Latisha Edgar RN - Reason: Contraindicated)2351 (Not Given - Provider: Medardo Butler RN - Reason: Patient sleeping) 0819 (Not Given - Provider: Latisha Edgar RN - Reason: Contraindicated) PRN Medication Order 08/02/2024 08/03/2024 08/04/2024 acetaminophen (TYLENOL) Suppository 650 mg(Linked Group 1) 650 mg (22.7 mg/kg), Rectal, EVERY 4 HOURS PRN, mild pain, other, and adjunct with moderate or severe pain or per patient request, Starting on 07/28/24 at 2130, Alternate with ibuprofen if ordered. Maximum acetaminophen dose from all sources = 75 mg/kg/day not to exceed 4 grams/day. acetaminophen (TYLENOL) tablet 650 mg(Linked Group 1) 650 mg (22.7 mg/kg), Oral, EVERY 4 HOURS PRN, mild pain, other, and adjunct with moderate or severe pain or per patient request, Starting on 07/28/24 at 2130, Alternate with ibuprofen if ordered. Maximum acetaminophen dose from all sources = 75 mg/kg/day not to exceed 4 grams/day. lidocaine (LMX4) cream Topical, EVERY 1 HOUR PRN, pain, with VAD insertion, Starting on 07/28/24 at 2127, Apply at least 30 minutes prior to VAD insertion in divided doses as needed for size of site for insertion. MAX Dose: 2.5 g ( of 5 g tube) Do NOT give if patient has a history of allergy to any local anesthetic or any bj product. Do NOT use both lidocaine intradermal/subcutaneous injection and the lidocaine cream on the same site. lidocaine 1 % 0.1-1 mL 0.1-1 mL, Other, EVERY 1 HOUR PRN, mild pain with VAD insertion, Starting on 07/28/24 at 7, MAX dose 1 mL subcutaneous OR intradermal along the side of the vein in divided doses as needed for VAD insertion. Do NOT give if patient has a history of allergy to any local anesthetic or any bj product. Do NOT use both lidocaine intradermal/subcutaneous injection and the lidocaine cream on the same site. melatonin tablet 5 mg 5 mg (0.175 mg/kg), Oral, AT BEDTIME PRN, sleep, Starting on 07/28/24 at 2131, Do not give unless at least 6 hours of uninterrupted sleep is expected. If patient has multiple medications ordered PRN sleep/insomnia, offer melatonin first. morphine (PF) injection 1 mg 1 mg (0.035 mg/kg), Intravenous, EVERY 2 HOURS PRN, moderate pain, IF patient cannot take oral opioid OR IF pain not managed with non-pharmacological, non-opioid, or oral opioid interventions if ordered, Starting on 07/28/24 at 2131, May use concomitant with non-opioid analgesics. morphine (PF) injection 2 mg 2 mg (0.0699 mg/kg), Intravenous, EVERY 2 HOURS PRN, severe pain, IF patient cannot take oral opioid OR IF pain not managed with non-pharmacological, non-opioid, or oral opioid interventions if ordered, Starting on 07/28/24 at 2131, May use concomitant with non-opioid analgesics. naloxone (NARCAN) injection 0.2 mg(Linked Group 2) 0.2 mg (0.04219 mg/kg), Intravenous, EVERY 2 MIN PRN, opioid reversal, Starting on 07/28/24 at 2141, Administer intravenous route when available and notify provider when administered. For unintended sedation or respiratory depression if all of the below criteria are met: ~ respiratory rate LESS than or EQUAL to 8. ~SaO2 less than 92% and or/end-tidal CO2 is greater than 50. ~ the patient is receiving an opioid, has unintended sedations assessed as RASS (-3), and is currently not on mechanical ventilation. RASS scale moderate (-3) is movement or eye opening to voice but no eye contact. Patient Monitoring Once the patient has demonstrated a response to the naloxone, continue to monitor respiratory rate, depth, oxygen saturation and end-tidal CO2 (if available) every 15 minutes x 2, then every 30 minutes x 2, then every 1 hour x 1 after each naloxone dose. Consider transfer to ICU if patient respiratory parameters have not improved after 4 naloxone doses. naloxone (NARCAN) injection 0.2 mg(Linked Group 2) 0.2 mg (0.26515 mg/kg), Intramuscular, EVERY 2 MIN PRN, opioid reversal, Starting on 07/28/24 at 2141, Administer intramuscular if an intravenous route is not available and notify provider when administered. For unintended sedation or respiratory depression if all of the below criteria are met: ~ respiratory rate LESS than or EQUAL to 8. ~SaO2 less than 92% and or/end-tidal CO2 is greater than 50. ~ the patient is receiving an opioid, has unintended sedations assessed as RASS (-3), and is currently not on mechanical ventilation. RASS scale moderate (-3) is movement or eye opening to voice but no eye contact. Patient Monitoring Once the patient has demonstrated a response to the naloxone, continue to monitor respiratory rate, depth, oxygen saturation and end-tidal CO2 (if available) every 15 minutes x 2, then every 30 minutes x 2, then every 1 hour x 1 after each naloxone dose. Consider transfer to ICU if patient respiratory parameters have not improved after 4 naloxone doses. naloxone (NARCAN) injection 0.4 mg(Linked Group 2) 0.4 mg (0.014 mg/kg), Intravenous, EVERY 2 MIN PRN, opioid reversal, Starting on 07/28/24 at 2141, Administer intravenous route when available and notify provider when administered. For unintended sedation or respiratory depression if all of the below criteria are met: ~ respiratory rate LESS than or EQUAL to 8. ~ SaO2 less than 92% and or/end-tidal CO2 is greater than 50. ~ the patient is receiving an opioid, has unintended sedation assessed as RASS (-4) or (-5) and patient is currently not on mechanical ventilation. RASS scale (-4) is deep sedation with no response to voice but movement or eye opening to physical stimulation. RASS scale (-5) is unarousable. Patient Monitoring Once the patient has demonstrated a response to the naloxone, continue to monitor respiratory rate, depth, oxygen saturation and end-tidal CO2 (if available) every 15 minutes x 2, then every 30 minutes x 2, then every 1 hour x 1 after each naloxone dose. Consider transfer to ICU if patient respiratory parameters have not improved after 4 naloxone doses. naloxone (NARCAN) injection 0.4 mg(Linked Group 2) 0.4 mg (0.014 mg/kg), Intramuscular, EVERY 2 MIN PRN, opioid reversal, Starting on 07/28/24 at 2141, Administer intramuscular if an intravenous route is not available and notify provider when administered. For unintended sedation or respiratory depression if all of the below criteria are met: ~ respiratory rate LESS than or EQUAL to 8. ~ SaO2 less than 92% and or/end-tidal CO2 is greater than 50. ~ the patient is receiving an opioid, has unintended sedation assessed as RASS (-4) or (-5) and patient is currently not on mechanical ventilation. RASS scale (-4) is deep sedation with no response to voice but movement or eye opening to physical stimulation. RASS scale (-5) is unarousable. Patient Monitoring Once the patient has demonstrated a response to the naloxone, continue to monitor respiratory rate, depth, oxygen saturation and end-tidal CO2 (if available) every 15 minutes x 2, then every 30 minutes x 2, then every 1 hour x 1 after each naloxone dose. Consider transfer to ICU if patient respiratory parameters have not improved after 4 naloxone doses. ondansetron (ZOFRAN ODT) ODT tab 4 mg(Linked Group 3) 4 mg (0.14 mg/kg), Oral, EVERY 6 HOURS PRN, nausea/vomiting - 1st line, Starting on 07/28/24 at 2131, This is Step 1 of nausea and vomiting management. If nausea not resolved in 15 minutes, go to Step 2 prochlorperazine (COMPAZINE). With dry hands, peel back foil backing and gently remove tablet. Do not push oral disintegrating tablet through foil backing. Administer immediately on tongue and oral disintegrating tablet dissolves in seconds, then swallow with saliva. Liquid not required. ondansetron (ZOFRAN) injection 4 mg(Linked Group 3) 4 mg (0.14 mg/kg), Intravenous, EVERY 6 HOURS PRN, nausea/vomiting - 1st line, Administer over 2-5 Minutes, Starting on 07/28/24 at 2131, Give IF patient unable to tolerate oral medication. This is Step 1 of nausea and vomiting management. If nausea not resolved in 15 minutes, go to Step 2 prochlorperazine (COMPAZINE). oxyCODONE (ROXICODONE) tablet 5 mg 5 mg (0.175 mg/kg), Oral, EVERY 4 HOURS PRN, severe pain, IF pain not managed with non-pharmacological and non-opioid interventions, Starting on 07/28/24 at 2130, May use concomitant with non-opioid analgesics. oxyCODONE IR (ROXICODONE) half-tab 2.5 mg 2.5 mg (0.0874 mg/kg), Oral, EVERY 4 HOURS PRN, moderate pain, IF pain not managed with non-pharmacological and non-opioid interventions, Starting on 07/28/24 at 2130, May use concomitant with non-opioid analgesics. prochlorperazine (COMPAZINE) injection 10 mg(Linked Group 4) 10 mg (0.35 mg/kg), Intravenous, EVERY 6 HOURS PRN, nausea/vomiting - 2nd line, Administer over 1-2 Minutes, Starting on 07/28/24 at 2131, IF patient unable to tolerate oral medication. This is Step 2 of nausea and vomiting management. Give if nausea not resolved 15 minutes after giving ondansetron (ZOFRAN). prochlorperazine (COMPAZINE) tablet 10 mg(Linked Group 4) 10 mg (0.35 mg/kg), Oral, EVERY 6 HOURS PRN, nausea/vomiting - 2nd line, Starting on 07/28/24 at 213, This is Step 2 of nausea and vomiting management. Give if nausea not resolved 15 minutes after giving ondansetron (ZOFRAN). senna-docusate (SENOKOT-S/PERICOLACE) 8.6-50 MG per tablet 1 tablet(Linked Group 5) 1 tablet, Oral, 2 TIMES DAILY PRN, constipation, Starting on 07/28/24 at 2126, If no bowel movement in 24 hours, increase to 2 tablets by mouth. IF more than 1 constipation PRN medication is ordered, administer step-andrade as indicated, moving to the next step ONLY if prior step ineffective. Step 1: senna-docusate (SENOKOT-S; PERICOLACE) OR bisacodyl (DULCOLAX) EC tablet Step 2: polyethylene glycol (MIRALAX/GLYCOLAX) Step 3: bisacodyl (DULCOLAX) suppository Step 4: enema Hold for loose stools. senna-docusate (SENOKOT-S/PERICOLACE) 8.6-50 MG per tablet 2 tablet(Linked Group 5) 2 tablet, Oral, 2 TIMES DAILY PRN, constipation, Starting on 07/28/24 at 2126, IF more than 1 constipation PRN medication is ordered, administer step-andrade as indicated, moving to the next step ONLY if prior step ineffective. Step 1: senna-docusate (SENOKOT-S; PERICOLACE) OR bisacodyl (DULCOLAX) EC tablet Step 2: polyethylene glycol (MIRALAX/GLYCOLAX) Step 3: bisacodyl (DULCOLAX) suppository Step 4: enema Hold for loose stools. sodium chloride (PF) 0.9% PF flush 3 mL 3 mL, Intracatheter, EVERY 1 MIN PRN, line flush, other, to ensure patency or to lock dormant line, Starting on 07/28/24 at 2126 1851 ($Given - Provider: Kanchan Kimball RN) Linked Groups Order Group 1: acetaminophen (TYLENOL) tablet 650 mgJump to med 650 mg (22.7 mg/kg), Oral, EVERY 4 HOURS PRN, mild pain, other, and adjunct with moderate or severe pain or per patient request, Starting on 07/28/24 at 2130, Alternate with ibuprofen if ordered. Maximum acetaminophen dose from all sources = 75 mg/kg/day not to exceed 4 grams/day. Or acetaminophen (TYLENOL) Suppository 650 mgJump to med 650 mg (22.7 mg/kg), Rectal, EVERY 4 HOURS PRN, mild pain, other, and adjunct with moderate or severe pain or per patient request, Starting on 07/28/24 at 2130, Alternate with ibuprofen if ordered. Maximum acetaminophen dose from all sources = 75 mg/kg/day not to exceed 4 grams/day. Group 2: naloxone (NARCAN) injection 0.2 mgJump to med 0.2 mg (0.72145 mg/kg), Intravenous, EVERY 2 MIN PRN, opioid reversal, Starting on 07/28/24 at 2141, Administer intravenous route when available and notify provider when administered. For unintended sedation or respiratory depression if all of the below criteria are met: ~ respiratory rate LESS than or EQUAL to 8. ~SaO2 less than 92% and or/end-tidal CO2 is greater than 50. ~ the patient is receiving an opioid, has unintended sedations assessed as RASS (-3), and is currently not on mechanical ventilation. RASS scale moderate (-3) is movement or eye opening to voice but no eye contact. Patient Monitoring Once the patient has demonstrated a response to the naloxone, continue to monitor respiratory rate, depth, oxygen saturation and end-tidal CO2 (if available) every 15 minutes x 2, then every 30 minutes x 2, then every 1 hour x 1 after each naloxone dose. Consider transfer to ICU if patient respiratory parameters have not improved after 4 naloxone doses. Or naloxone (NARCAN) injection 0.4 mgJump to med 0.4 mg (0.014 mg/kg), Intravenous, EVERY 2 MIN PRN, opioid reversal, Starting on 07/28/24 at 2141, Administer intravenous route when available and notify provider when administered. For unintended sedation or respiratory depression if all of the below criteria are met: ~ respiratory rate LESS than or EQUAL to 8. ~ SaO2 less than 92% and or/end-tidal CO2 is greater than 50. ~ the patient is receiving an opioid, has unintended sedation assessed as RASS (-4) or (-5) and patient is currently not on mechanical ventilation. RASS scale (-4) is deep sedation with no response to voice but movement or eye opening to physical stimulation. RASS scale (-5) is unarousable. Patient Monitoring Once the patient has demonstrated a response to the naloxone, continue to monitor respiratory rate, depth, oxygen saturation and end-tidal CO2 (if available) every 15 minutes x 2, then every 30 minutes x 2, then every 1 hour x 1 after each naloxone dose. Consider transfer to ICU if patient respiratory parameters have not improved after 4 naloxone doses. Or naloxone (NARCAN) injection 0.2 mgJump to med 0.2 mg (0.99327 mg/kg), Intramuscular, EVERY 2 MIN PRN, opioid reversal, Starting on 07/28/24 at 2141, Administer intramuscular if an intravenous route is not available and notify provider when administered. For unintended sedation or respiratory depression if all of the below criteria are met: ~ respiratory rate LESS than or EQUAL to 8. ~SaO2 less than 92% and or/end-tidal CO2 is greater than 50. ~ the patient is receiving an opioid, has unintended sedations assessed as RASS (- 3), and is currently not on mechanical ventilation. RASS scale moderate (-3) is movement or eye opening to voice but no eye contact. Patient Monitoring Once the patient has demonstrated a response to the naloxone, continue to monitor respiratory rate, depth, oxygen saturation and end-tidal CO2 (if available) every 15 minutes x 2, then every 30 minutes x 2, then every 1 hour x 1 after each naloxone dose. Consider transfer to ICU if patient respiratory parameters have not improved after 4 naloxone doses. Or naloxone (NARCAN) injection 0.4 mgJump to med 0.4 mg (0.014 mg/kg), Intramuscular, EVERY 2 MIN PRN, opioid reversal, Starting on 07/28/24 at 2141, Administer intramuscular if an intravenous route is not available and notify provider when administered. For unintended sedation or respiratory depression if all of the below criteria are met: ~ respiratory rate LESS than or EQUAL to 8. ~ SaO2 less than 92% and or/end-tidal CO2 is greater than 50. ~ the patient is receiving an opioid, has unintended sedation assessed as RASS (- 4) or (-5) and patient is currently not on mechanical ventilation. RASS scale (-4) is deep sedation with no response to voice but movement or eye opening to physical stimulation. RASS scale (-5) is unarousable. Patient Monitoring Once the patient has demonstrated a response to the naloxone, continue to monitor respiratory rate, depth, oxygen saturation and end-tidal CO2 (if available) every 15 minutes x 2, then every 30 minutes x 2, then every 1 hour x 1 after each naloxone dose. Consider transfer to ICU if patient respiratory parameters have not improved after 4 naloxone doses. Group 3: ondansetron (ZOFRAN ODT) ODT tab 4 mgJump to med 4 mg (0.14 mg/kg), Oral, EVERY 6 HOURS PRN, nausea/vomiting - 1st line, Starting on 07/28/24 at 2131, This is Step 1 of nausea and vomiting management. If nausea not resolved in 15 minutes, go to Step 2 prochlorperazine (COMPAZINE). With dry hands, peel back foil backing and gently remove tablet. Do not push oral disintegrating tablet through foil backing. Administer immediately on tongue and oral disintegrating tablet dissolves in seconds, then swallow with saliva. Liquid not required. Or ondansetron (ZOFRAN) injection 4 mgJump to med 4 mg (0.14 mg/kg), Intravenous, EVERY 6 HOURS PRN, nausea/vomiting - 1st line, Administer over 2-5 Minutes, Starting on 07/28/24 at 2131, Give IF patient unable to tolerate oral medication. This is Step 1 of nausea and vomiting management. If nausea not resolved in 15 minutes, go to Step 2 prochlorperazine (COMPAZINE). Group 4: prochlorperazine (COMPAZINE) injection 10 mgJump to med 10 mg (0.35 mg/kg), Intravenous, EVERY 6 HOURS PRN, nausea/vomiting - 2nd line, Administer over 1-2 Minutes, Starting on 07/28/24 at 2131, IF patient unable to tolerate oral medication. This is Step 2 of nausea and vomiting management. Give if nausea not resolved 15 minutes after giving ondansetron (ZOFRAN). Or prochlorperazine (COMPAZINE) tablet 10 mgJump to med 10 mg (0.35 mg/kg), Oral, EVERY 6 HOURS PRN, nausea/vomiting - 2nd line, Starting on 07/28/24 at 2131, This is Step 2 of nausea and vomiting management. Give if nausea not resolved 15 minutes after giving ondansetron (ZOFRAN). Group 5: senna-docusate (SENOKOT-S/PERICOLACE) 8.6-50 MG per tablet 1 tabletJump to med 1 tablet, Oral, 2 TIMES DAILY PRN, constipation, Starting on 07/28/24 at 2126, If no bowel movement in 24 hours, increase to 2 tablets by mouth. IF more than 1 constipation PRN medication is ordered, administer step-andrade as indicated, moving to the next step ONLY if prior step ineffective. Step 1: senna-docusate (SENOKOT-S; PERICOLACE) OR bisacodyl (DULCOLAX) EC tablet Step 2: polyethylene glycol (MIRALAX/GLYCOLAX) Step 3: bisacodyl (DULCOLAX) suppository Step 4: enema Hold for loose stools. Or senna-docusate (SENOKOT-S/PERICOLACE) 8.6-50 MG per tablet 2 tabletJump to med 2 tablet, Oral, 2 TIMES DAILY PRN, constipation, Starting on 07/28/24 at 2126, IF more than 1 constipation PRN medication is ordered, administer step-andrade as indicated, moving to the next step ONLY if prior step ineffective. Step 1: senna-docusate (SENOKOT-S; PERICOLACE) OR bisacodyl (DULCOLAX) EC tablet Step 2: polyethylene glycol (MIRALAX/GLYCOLAX) Step 3: bisacodyl (DULCOLAX) suppository Step 4: enema Hold for loose stools. documented in this encounter Additional Health Concerns Infection Onset Date Last Indicated Resolved Time Rule Out C-difficile 08/02/2024 08/02/2024 025 4:21 PM CDT documented as of this encounter Care Teams Research Methodologist Relationship Specialty Start Date End Date Clinic - [facility] [address] [place] [address] PCP - General 12/14/23 07/31/24 [facility]- [address] [place] [address] PCP - General 08/01/24 08/01/24 Jory Reno MD [facility] [address] [place] [address] PCP - General Family Medicine 08/02/24 documented as of this encounter
[2024-08-12] VITALS (63 sets, daily range): BP systolic 101–133; BP diastolic 60–103; PULSE 88–104; RESP 18; TEMP 36.6; O2SAT 91–100; BMI 28.8
--- NOTE | 2024-08-12 | CRLHL7_ITS ---
For Patients: As a result of the Century Cures Act, medical imaging exams and procedure reports are released immediately into your electronic medical record. You may view this report before your referring provider. If you have questions, please contact your health care provider. INDICATION: Hypoxia. TECHNIQUE: CT chest PE was acquired with 100 cc Omnipaque 350 IV contrast. MIP reconstructions were performed. COMPARISON: None. FINDINGS: Heart and vasculature: Contrast opacification of the pulmonary arterial tree is adequate. No sign of pulmonary embolism. Heart size is normal. Thoracic aorta and pulmonary artery are normal in caliber. Lungs and pleura: Hypoventilatory changes with diffuse peribronchial thickening with mosaic attenuation. Redemonstration of 2.0 centimeter left lower lobe pulmonary nodule. No pleural effusions or pneumothoraces. Lymph nodes/mediastinum: No mediastinal, hilar, or axillary adenopathy. Chest wall: No masses. Upper abdomen: Please refer to same-day CT abdomen/pelvis for further evaluation. Bones: Unremarkable for age. IMPRESSION: No pulmonary embolism. Hypoventilatory changes with diffuse peribronchial thickening with mosaic attenuation, likely related to small vessel/airway disease, including bronchitis and/or pulmonary edema. Redemonstration of 2.0 centimeter left lower lobe pulmonary nodule. Please note that all CT scans at this facility use dose modulation, iterative reconstruction, and/or weight-based dosing when appropriate to reduce radiation dose to as low as reasonably achievable. Dictated by Yann Lofton MD @ 08/12/2024 9:35:47 PM (Electronically Signed)
--- OUTSIDE RECORDS SUMMARY | 2024-08-12 15:49 | XMS_ITS | Clinical Summary ---
Author Organization [facility] Address [address] [place] [address]. [place] [address] Care Team Providers Care Certified Histologic Technician Name Role Phone Jory Whitney MD Primary Care Provider + Allergies No known active allergies Medications calcium carbonate (TUMS) 500 MG chewable tablet Take 1 chew tab by mouth daily. Active multivitamin, therapeutic (THERA-VIT) TABS tablet Take 1 tablet by mouth daily. Active psyllium (METAMUCIL/KONSY L) capsule Take 1 capsule by mouth daily. Active Active Problems Problem Noted Date Diagnosed Date Small bowel obstruction 07/28/2024 Encounters Date Type Department Care Team Description 07/28/2024 9:10 PM CDT - 08/04/2024 10:57 AM CDT Hospital Encounter [facility] [address] [facility] [address] [place] [phone] Oscar Brothers MD Asumeng, Gabriel, MD Small bowel obstruction (H) (Primary Dx) Discharge Disposition: Home or Self Care 07/28/2024 Telephone [facility] - General Medicine & Pediatrics [address] [place] [phone] Yina Ruiz PA-C 07/28/2024 Telephone [facility] - General Medicine & Pediatrics [address] [place] [phone] Yina Ruiz PA-C from Last 3 Months Social History Tobacco Use Types Packs/Day Years [...] Date Recorded Do you have housing? 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 Gender Identity Not on file Sexual Orientation Not on file Last Filed Vital Signs Vital Sign Reading [...] Mass Index 29.03 07/28/2024 9:24 PM CDT Plan of Treatment Health Maintenance Due Date Last Done Comments ADVANCE CARE PLANNING 1980 ANNUAL REVIEW OF HM ORDERS 1980 MAMMO SCREENING 1980 HIV SCREENING 07/15/1995 HEPATITIS C SCREENING 1998 MEDICARE ANNUAL WELLNESS VISIT 1998 HEPATITIS B VACCINE (1 of 3 - 19+ 3-dose series) 07/15/1999 PAP 2001 DTAP/TDAP/TD VACCINE (6 - Td or Tdap) 05/08/2019 05/07/2009, 12/27/1995, 02/27/1981, Additional history exists LIPID 2020 COVID-19 VACCINE ( season) 2023 05/30/2020, 05/01/2020 PHQ-2 (once per calendar year) 2024 INFLUENZA VACCINE (Season Ended) 2024 12/04/1994 DIABETES SCREENING 08/02/2027 08/01/2024, 0 07/30/2024, 07/29/2024, Additional history exists ZOSTER VACCINE (1 of 2) 2030 HPV VACCINE Aged Out No longer eligi ble based on patient's age to complete this topic MENINGITIS VACCINE Aged Out No longer eligible based on patient's age to complete this topic PNEUMOCOCCAL VACCINE: PEDIATRICS (0 to 5 YEARS) AND AT-RISK PATIENTS (6 to 49 YEARS) Aged Out No longer eligible based on patient's age to complete this topic Procedures Procedure Name Priority Date/Time Associated Diagnosis Comments CBC WITH PLATELETS & DIFFERENTIAL Routine 08/03/2024 8:44 PM CDT MANUAL DIFFERENTIAL Routine 08/03/2024 8 :44 PM CDT RBC AND PLATELET MORPHOLOGY Routine 08/03/2024 8:44 PM CDT CBC WITH PLATELETS AND DIFFERENTIAL Routine 08/03/2024 8:44 PM CDT OVERNIGHT OXIMETRY STUDY Routine 08/02/2024 3:13 PM CDT C. DIFFICILE TOXIN B PCR WITH REFLEX TO C. DIFFICILE EIA Routine 08/02/2024 12:17 PM CDT POTASSIUM Add-On 08/02/2024 7:15 AM CDT EXTRA GREEN TOP TUBE (LAB USE ONLY) Routine 08/02/2024 7:15 AM CDT CBC WITH PLATELETS [...] PLATELETS Routine 07/29/2024 7: 38 AM CDT POTASSIUM (EXTERNAL RESULT) Routine 07/28/2024 3:02 PM CDT CREATININE (EXTERNAL RESULT) Routine 07/28/2024 3:02 PM CDT GLUCOSE (EXTERNAL RESULT) Routine 07/28/2024 3:02 PM CDT AST (EXTERNAL RESULT) Routine 07/28/2024 3:02 PM CDT ALT (EXTERNAL RESULT) Routine 07/28/2024 3:02 PM CDT XRAY IMAGING - HIM SCAN 07/28/2024 12:[address] IMAGING - HIM SCAN 07/28/2024 12:00 AM CDT from Last 3 Months Results * (ABNORMAL) Manual Differential (08/03/2024 8:44 PM CDT) % Neutrophils 41 % [facility] 08/07/2024 2:02 PM CDT [facility] % Lymphocytes 38 % [facility] 08/07/2024 2:02 PM CDT [facility] % Monocytes 12 % [facility] 08/07/2024 2:02 PM CDT [facility] % Eosinophils 8 % [facility] 08/07/2024 2:02 PM CDT [facility] % Basophils 1 % [facility] 08/07/2024 2:02 PM CDT [facility] Absolute Neutrophils 7.4 1.6 - 8.3 10e3/uL [facility] 08/07/2024 2:02 PM CDT [facility] Absolute Lymphocytes 6.8(H) 0.8 - 5.3 10e3/uL [facility] 08/07/2024 2:02 PM CDT [facility] Absolute Monocytes 2.2(H) 0.0 - 1.3 10e3/uL [facility] 08/07/2024 2:02 PM CDT [facility] Absolute Eosinophils 1.4(H) 0.0 - 0.7 10e3/uL [facility] 08/07/2024 2:02 PM CDT [facility] Absolute Basophils 0.2 0.0 - 0.2 10e3/uL [facility] 08/07/2024 2:02 PM CDT [facility] Pathologist Review Comments (Blood) Atypical lymphocytosis with scattered damage so-called smudge cells. Recommend flow cytometry to rule out a possible low-grade lymphoproliferative neoplasm if the findings persist. Pathologist review performed by Zoran Brady MD on 08/06/2024. [facility] 08/07/2024 2:02 PM CDT LABORATORY Blood STRUCTURE OF LEFT UPPER LIMB / Unknown Venipuncture / Unknown 08/03/2024 8:44 PM CDT 08/03/2024 8:47 PM CDT Narrative LABORATORY - 08/07/2024 2:02 PM CDT Sent for review by Pathologist. See Pathologist comments after review. José Luis Valderrama MD LAB - BLOOD ORDERABLES Final Result LABORATORY [facility] Lab [address] Lab (1st floor, no room number) [place] [address], [facility] LABORATORY [facility] Acute Care Lab [address] 1st floor, [address] [place] [address], [facility] [phone] * (ABNORMAL) RBC and Platelet Morphology (08/03/2024 8:44 PM CDT) RBC Morphology Confirmed RBC Indices 08/07/2024 2:02 PM CDT LABORATORY Platelet Assessment Automated Count Confirmed. Platelet morphology is normal. Automated Count Confirmed. Platelet morphology is normal. [facility] 08/07/2024 2:02 PM CDT LABORATORY Reactive Lymphocytes Present(A) None Seen [facility] 08/07/2024 2:02 PM CDT LABORATORY Smudge Cells Present(A) None Seen [facility] 08/07/2024 2:02 PM CDT LABORATORY Blood STRUCTURE OF LEFT UPPER LIMB / Unknown Venipuncture / Unknown 08/03/2024 8:44 PM CDT 08/03/2024 8:47 PM CDT José Luis Valderrama MD LAB - BLOOD ORDERABLES Final Result [facility] Acute Care Lab [address] Lab (1st floor, no room number) [place] [address], [facility] * (ABNORMAL) CBC with [...] - 33.0 pg 08/07/2024 2:02 PM CDT LABORATORY MCHC 33.9 31.5 - 36.5 g/dL 08/07/2024 2:02 PM CDT [facility] RDW 14.8 10.0 - 15.0 % 08/07/2024 2:02 PM CDT LABORATORY Platelet Count 251 150 - 450 10e3/uL 08/07/2024 2:02 PM CDT [facility] Blood STRUCTURE OF LEFT UPPER LIMB / Unknown Venipuncture / Unknown 08/03/2024 8:44 PM CDT 08/03/2024 8:47 PM CDT us José Luis Valderrama MD LAB - BLOOD ORDERABLES Final Result [facility] [address] [facility] Lab (1st floor, no room number) [place] [address], [facility] * C. difficile Toxin [...] LABORATORY - 08/02/2024 4:21 PM CDT The [employer] Xpert C. difficile Assay, performed on the [employer]XQuarter[employer] Instrument Systems, is a qualitative in vitro [...] - MICRO GENERAL OR DERABLES Final Result U IDD LABORATORY [facility] Inf. Diseases Diag. Lab [address] [facility], [address] [place] [address], [facility] * Extra Green Top Tube (LAB USE ONLY) (08/02/2024 7:15 AM CDT) [facility] Hold Specimen [facility] 08/02/2024 8:46 AM CDT LABORATORY Blood STRUCTURE OF RIGHT HAND / Unknown Venipuncture / Unknown 08/02/2024 7:15 AM CDT 08/02/2024 7:33 AM CDT Oscar Brothers MD LAB - BLOOD ORDER JD Final Result LABORATORY [facility] Acute Care Lab [address] [facility] Lab (1st floor, no room number) [place] [address], [facility] * Potassium (08/02/2024 7:15 AM CDT) Only the most recent of6 resultswithin the time period is included. Potassium 4.0 3.4 - 5.3 mmol/L 08/02/2024 8:33 AM CDT [facility] Blood STRUCTURE OF RIGHT HAND / Unknown Venipuncture / Unknown 08/02/2024 7:15 AM CDT 08/02/2024 7:33 AM CDT José Luis Valderrama MD LAB - BLOOD ORDERABLES Final Result [facility] Acute Care Lab [address] [facility] Lab (1st floor, no room number) [place] [address] * (ABNORMAL) CBC with platelets (08/02/2024 7:15 AM CDT) Only the most recent of4 resultswithin the time period is included. WBC Count 17.8(H) 4.0 - 11.0 10e3/uL [...] - BLOOD ORDERABLES Final Result [facility] Acute Care Lab [address] Lab (1st floor, no room number) [place] [address], [facility] * (ABNORMAL) Basic metabolic panel (08/01/2024 10:08 AM CDT) Only the most recent of2 resultswithin the time period is included. Sodium 139 135 - 145 mmol/L 08/01/2024 [...] 08/01/2024 10:52 AM CDT LABORATORY Comment:eGFR calculated us2020 CKD-EPI equation. Calcium 8.2(L) 8.8 - 10.4 mg/dL 08/01/2024 10:52 AM CDT LABORATORY Glucose 78 70 - 99 mg/dL 08/01/2024 10:52 AM CDT LABORATORY Blood STRUCTURE OF RIGHT HAND / Unknown Venipuncture / Unknown 08/01/2024 10:08 AM CDT 08/01/2024 10:13 AM CDT José Luis Valderrama MD LAB - BLOOD ORDERABLES Final Result [facility] Acute Care Lab [address] Lab (1st floor, no room number) [place] [address] * XR Abdomen 1 View (07/30/2024 8:57 [...] CDT EXAM: XR ABDOMEN 1 VIEW LOCATION: [facility] DATE: 07/30/2024 INDICATION: follow up gastrografin challenge COMPARISON: Radiographs 07/29/2024 Procedure Note Hector Richardson MD - 07/30/2024 EXAM: XR ABDOMEN 1 VIEW LOCATION: [facility] DATE: 07/30/2024 INDICATION: follow up gastrografin challenge COMPARISON: Radiographs 07/29/2024 IMPRESSION: Progression of Gastrografin since yesterday, with increasedvolume of contrast in the colon. Overall decrease in caliber of smallbowel loops however some segments remain dilated. Nothing for free air onthese supine only radiographs. Frantz Crespo MD IMG DIAGNOSTIC IMAGING ORDERABLES Final Result * XR Gastrografin Challenge (07/29/2024 6:56 PM [...] PM CDT EXAM: XR GASTROGRAFIN CHALLENGE LOCATION: [facility] DATE: 07/29/2024 INDICATION: Small Bowel Obstruction COMPARISON: None. TECHNIQUE: Routine water soluble contrast follow-through challenge. Procedure Note Paco Castro MD - 07/29/2024 EXAM: XR GASTROGRAFIN CHALLENGE LOCATION: [facility] DATE: 07/29/2024 INDICATION: Small Bowel Obstruction COMPARISON: None. TECHNIQUE: Routine water soluble contrast follow-through challenge. IMPRESSION: 1. Uneventful small amount of contrast identified within the ascendingand descending colon 8 hours post administration. 2. Contrast filled loops of dilated small bowel noted throughout theabdomen compatible with obstruction. Frantz Crespo MD IM DIAGNOSTIC IMAGING ORDERABLES Final Result * (ABNORMAL) Renal panel (07/29/2024 7:38 AM CDT) Sodium 146(H) 135 - 145 mmol/L 07/29/2024 8:08 AM CDT LABORATORY Potassium 2.9(L) 3.4 - 5.3 mmol/L 07/29/2024 8:08 AM CDT LABORATORY Chloride 107 98 - 107 mmol/L 07/29/2024 8:08 AM CDT LABORATORY Carbon Dioxide (CO2) 22 22 - 29 mmol/L 07/29/2024 8:08 AM CDT LABORATORY Anion Gap 17(H) 7 - 15 mmol/L 07/29/2024 8:08 AM CDT LABORATORY Glucose 148(H) 70 - 99 mg/dL 07/29/2024 8:08 AM CDT LABORATORY Urea Nitrogen 16.6 6.0 - 20.0 mg/dL 07/29/2024 8:08 AM CDT LABORATORY Creatinine 0.46(L) 0.51 - 0.95 mg/dL 07/29/2024 8:08 AM CDT LABORATORY GFR Estimate >90 >60 mL/min/1.7 3m2 07/29/2024 8:08 AM CDT LABORATORY Comment:eGFR calculated usin 2020 CKD-EPI equation. Calcium 8.7(L) 8.8 - 10.4 mg/dL 07/29/2024 8:08 AM CDT LABORATORY Albumin 3.5 3.5 - 5.2 g/dL 07/29/2024 8:08 AM CDT LABORATORY Phosphorus 2.0(L) 2.5 - 4.5 mg/dL 07/29/2024 8:08 AM CDT LABORATORY Blood STRUCTURE OF LEFT HAND / Unknown Venipuncture / Unknown 07/29/2024 7:38 AM CDT 07/29/2024 7:45 AM CDT us Toby Finch MD LAB - BLOOD ORDERABLES Final Result LABORATORY [facility] Acute Care Lab [address] [facility] Lab (1st floor, no room number) [place] [address], [facility] * Potassium (External Result) (07/28/2024 3:02 PM CDT) Potassium (External) 3.6 3.6 - 5.1 mmol/L [facility] Blood 07/28/2024 3:02 PM CDT [facility] - 07/28/2024 3:02 PM CDT [facility] - ED Note us Provider Outside LAB - HIM EXTERNAL RESULT Final Result Performing Organization Address City/[facility]/ZIP Co de Phone Number [facility] [address] [place] [address], [facility] [phone] * (ABNORMAL) Glucose (External Result) (07/28/2024 3:02 PM CDT) Glucose (External) 147(A) 60 - 115 mg/dL [facility] Blood 07/28/2024 3:02 PM CDT [facility] - 07/28/2024 3:02 PM CDT [facility] - ED Note us Provider Outside LAB - HIM EXTERNAL RESULT Final Result Performing Organization Address [facility]/ZIP Co de Phone Number [facility] [address] [place] [address], [facility] [phone] * Creatinine (External Result) (07/28/2024 3:02 PM CDT) Creatinine (External) 0.6 0.5 - 1.5 mg/dL [facility] Blood 07/28/2024 3:02 PM CDT [facility] - 07/28/2024 3:02 PM CDT [facility] - ED Note us Provider Outside LAB - HIM EXTERNAL RESULT Final Result Performing Organization Address City/[facility]/ZIP Co de Phone Number [address] [phone] * AST (External Result) (07/28/2024 3:02 PM CDT) AST (External) 33 12 - 35 U/L [facility] Blood 07/28/2024 3:02 PM CDT [facility] - 07/28/2024 3:02 PM CDT [facility] ED Note us Provider Outside LAB - HIM EXTERNAL RESULT Final Result Performing Organization Address City/[facility]/ZIP Co de Phone Number [address] [address], [facility] [phone] * (ABNORMAL) ALT (External Result) (07/28/2024 3:02 PM CDT) ALT (External) 48(A) 4 - 35 U/L [facility] Blood 07/28/2024 3:02 PM CDT [facility] - 07/28/2024 3:02 PM CDT [facility] - ED Note us Provider Outside LAB - HIM EXTERNAL RESULT Final Result Performing Organization Address [facility]/ZIP Co de Phone Number [address] [address], [facility] [phone] * Xray Imaging - HIM Scan (07/28/2024 12:00 AM CDT) Anatomical Region Laterality Modality Other 07/28/2024 us Provider Outside IMG DIAGNOSTIC IMAGING ORDERABL ES Final Result * CT Imaging - HIM Scan (07/28/2024 12:00 AM CDT) Anatomical Region Laterality Modality Computed Tomogra phy 07/28/2024 us Provider Outside IMG CT ORDERABLES Final Result from Last 3 Months Insurance [place] Advance Directives For more information, please contact: [phone] * Full Code (Latest Code Status on File) Date Activated Date Inactivated Comments 07/28/2024 9:32 PM 08/04/2024 1:03 PM All basic an d advanced life-sustaining interventions are performed as appropriate Question Answer Comments Code status determined by: Discussion with hans nt/ legal decision maker Care Teams Certified Histologic Technician Relationship Specialty Start Date End Date Jory Whitney MD [facility] [address] [place] [address] PCP - General Family Medicine 08/02/24
--- OUTSIDE RECORDS SUMMARY | 2024-08-12 15:50 | XMS_ITS | Encounter Summary ---
Author Organization [address] [address] Care Team Providers Care Brass Finisher Name Role Phone Clinic - [facility] Primary Care Provider Encounter Details Date Type Department Care Team (Late st Contact Info) Description 07/28/2024 Telephone [facility] Services - General Medicine & Pediatrics [address] [place] [phone] Yina Ruiz PAJewellC [address] [place] [address] Social History Tobacco Use Types Packs/Day Years [...] Answer Date Recorded Do you have housing? 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
--- OUTSIDE RECORDS SUMMARY | 2024-08-12 15:50 | XMS_ITS | Encounter Summary ---
Author Organization [address] [address] Care Team Providers Care Grinder Carbon Plant Name Role Phone Clinic - [facility] Primary Care Provider Encounter Details Date Type Department Care Team (Late st Contact Info) Description 07/28/2024 Telephone [facility] Services - General Medicine & Pediatrics [address] [place] [phone] Yina Ruiz PAJewellC [address] [place] [address] Social History Tobacco Use Types Packs/Day [...] in an abandoned building, in an overnight retirement, or couch-surfing.) Patient unable to answer 07/29/2024 [...] on file 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
--- NOTE | 2024-08-12 19:12 | ED_ITS ---
HPI - General Adult General Date Seen: 08/12/24 Chief complaint: Diarrhea Stated complaint: Diarrhea & vomiting Time Seen by Provider: 08/12/24 18:48 History of Present Illness HPI narrative: 44-year-old female with a past medical history of muscular dystrophy, intellectual disability, autism, left lower lobe lung mass, ovarian mass she was seen here in the ER on 07/28/2024 for vomiting and diarrhea, generalized weakness. she had a CT scan that showed a pneumonia and also a small bowel obstruction. She was transferred to [facility]. CT 07/28/24 IMPRESSION: 1. Findings concerning for a mechanical small bowel obstruction, with a suspected transition point in the mid abdomen. No pneumatosis intestinalis, portal venous gas or pneumoperitoneum. 2. Suspected left lower lobe pneumonia. 3. Left lower lobe pulmonary mass, indeterminate on this nondedicated examination, measuring 2.1 cm. Consider follow-up with a dedicated contrast-enhanced CT chest in 6-8 weeks, or following the completion of treatment for the patient`s suspected pneumonia, to assess stability or resolution. PET-CT and histologic tissue analysis may also be considered. 4. 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 Right ovarian cystic lesion measuring 5.0 cm. Recommend further evaluation with a nonemergent, outpatient contrast-enhanced pelvic MRI for improved characterization. parents report that she was hospitalized at [facility] for week. They admit that their recollection of events is somewhat limited because their late people. It sounds like this surgeons at [facility] were not confident that the patient had a bowel obstruction and they wanted to manage her supportively. She apparently had some sort of an x-ray with oral contrast that did pass through her bowels. She was admitted for week and finally discharged last Tuesday on 08/04. It sounds like she did well for the 1st couple of days it at home. However for 5 days ago on Tuesday she started having yellow/ green stools. That were very soft. On she had tender stools that were very soft. Since Tuesday she has had multiple episodes of liquid watery diarrhea every day. This morning she also threw up once at about 430. Her parents do not think she aspirated this time (she did have aspiration pneumonia last time she was sick like this). She is on oxygen here in the ER and they report she is not normally on oxygen home. They are noting today that she has increasing bloating of her abdomen. She seems uncomfortable and possibly is having abdominal pain. She is much less active than normal and much weaker than normal. She is brought to the ER today by her father and her stepmother. She has had watery stools for 4 days since and did have a single episode of emesis about 430 this morning. Related Data Previous Rx's ?Medication ?Instructions ?Recorded diaper,brief,adult,disposable #40 ea 01/13/24 (Fitted Briefs Medium) Allergies Allergy/AdvReac Type Severity Reaction Status Date / Time panthenol Allergy Unknown Two Family Verified 07/28/24 16:49 Members Have Severe Allergy 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) Lung mass (06/18/21) ?R91.8 - Other nonspecific abnormal finding of lung field (ICD-10) Surgical History History of cataract surgery (2015) ?Z98.49 - Cataract extraction status, unspecified eye (ICD-10) History of local excision of skin lesion (06/21/23) ?Z98.890 - Other specified postprocedural states (ICD-10) Family History Paternal Grandfather Hx of CABG, Onset Age: 70 Breast cancer, Onset Age: 57 Paternal Grandmother Valvular heart disease, Onset Age: 75 Mother Myotonic muscular dystrophy Aunt Myotonic muscular dystrophy Aunt Myotonic muscular dystrophy Aunt Breast cancer, Onset Age: 55 Aunt Breast cancer, Onset Age: 55 Father Diabetes Social History Narrative: Single, lives with father and stepmom, disabled, no kids, mostly in wheelchair walks short distances with walker Nonsmoker No alcohol use No exercise What is your current living situation?: I have a place to live at present, but am concerned about future Problems where you live: no known problems In the past 12 months, utilities in danger of being shut off: no In past 12 months, lack of transportation kept you from medical appts, meetings, work, or getting things needed for daily living: no In the past 12 mos, have been you worried that your food would run out before you had money to buy more?: never true In the past 12 mos, the food you bought just didn't last and you didn't have money to buy more?: never true Smoking Status: Never smoker Do you use any of these nicotine containing products: None How often do you have a drink containing alcohol: never AUDIT-C Alcohol total score: 0 Non-prescribed substance use: denies use How often does anyone, including family, friends and others, physically hurt you : never How often does anyone, including family, friends and others, insult or talk down to you: never How often does anyone, including family, friends and others, threaten you with harm: never How often does anyone, including family, friends and others, scream or curse at you: never Health Related Social Needs: housing instability, housed, with risk of homelessness (Z59.811) Exam Narrative: Exam Narrative: Constitutional: Appears well-developed and well-nourished. Awake. At sometime she repeats words and seeing, but otherwise is really not able to answer questions. Family reports that she is largely nonverbal. HENT: Head: Atraumatic. Nose: Nose normal. Mouth/Throat: Oral mucosa is clear But dry. Not desiccated or cracked.. no trismus. Pharynx normal. Tonsils symmetric. No tonsillar enlargement, erythema, or exudate. Eyes: Conjunctivae normal. EOM normal. Pupils equal, round, and reactive to light. No scleral icterus. Neck: Normal range of motion. Neck supple. No tracheal deviation present. Cardiovascular: Normal rate, regular rhythm. No gallop. No friction rub. No murmur heard. Symmetric radial artery pulses Pulmonary/Chest: Effort normal. No stridor. No respiratory distress. No wheezes. No rales. No rhonchi . No tenderness. Abdominal: Soft. Bowel sounds normal. Distended and tympanic. Seems to be mildly tender diffusely but difficult to read because of her mental status. No Definite rebound. No definiteguarding. Musculoskeletal: RUE: Normal range of motion. No tenderness. No deformity LUE: Normal range of motion. No tenderness. No deformity RLE: Normal range of motion. No edema. No tenderness. No deformity LLE: Normal range of motion. No edema. No tenderness. No deformity Neurological: Alert and oriented to person, place, and time. Normal strength. CN II-VII intact. No sensory deficit. GCS eye subscore is 4. GCS verbal subscore is 5. GCS motor subscore is 6. Normal coordination Skin: Skin is warm and dry. No rash noted. No pallor. Normal capillary refill. Psychiatric: Normal mood. Normal affect. Const: Vital Signs, click to edit/add: Vital Signs - 24 hr 08/12/24 16:05 08/12/24 19:32 08/12/24 19:36 Temperature 97.8 F Pulse Rate 99 100 Pulse Rate [Right Pulse Oximeter] 102 H Respiratory Rate 18 Blood Pressure 129/90 H 118/85 Blood Pressure [Ri ght Upper Arm] 101/70 Pulse Oximetry 94 94 94 Oxygen Delivery Me thod Room Air 08/12/24 19:41 08/12/24 19:45 08/12/24 19:46 Temperature Pulse Rate 94 96 95 Pulse Rate [Right Pulse Oximeter] Respiratory Rate Blood Pressure 116/85 120/78 Blood Pressure [Ri ght Upper Arm] Pulse Oximetry 96 94 94 Oxygen Delivery Me thod 08/12/24 19:52 08/12/24 19:56 08/12/24 20:00 Temperature Pulse Rate 95 104 H 98 Pulse Rate [Right Pulse Oximeter] Respiratory Rate Blood Pressure 112/80 131/79 Blood Pressure [Ri ght Upper Arm] Pulse Oximetry 93 94 Oxygen Delivery Me thod 08/12/24 20:09 08/12/24 20:15 08/12/24 20:30 Temperature Pulse Rate 96 104 H 100 Pulse Rate [Right Pulse Oximeter] Respiratory Rate Blood Pressure Blood Pressure [Ri ght Upper Arm] Pulse Oximetry 91 Oxygen Delivery Me thod 08/12/24 20:35 08/12/24 20:39 08/12/24 20:45 Temperature Pulse Rate 95 94 101 H Pulse Rate [Right Pulse Oximeter] Respiratory Rate Blood Pressure Blood Pressure [Ri ght Upper Arm] Pulse Oximetry 97 96 95 Oxygen Delivery Me thod 08/12/24 20:49 08/12/24 20:54 08/12/24 20:59 Temperature Pulse Rate 94 91 91 Pulse Rate [Right Pulse Oximeter] Respiratory Rate Blood Pressure Blood Pressure [Ri ght Upper Arm] Pulse Oximetry 95 93 92 Oxygen Delivery Me thod 08/12/24 21:00 08/12/24 21:04 08/12/24 21:27 Temperature Pulse Rate 90 90 89 Pulse Rate [Right Pulse Oximeter] Respiratory Rate Blood Pressure Blood Pressure [Ri ght Upper Arm] Pulse Oximetry 91 92 96 Oxygen Delivery Me thod 08/12/24 21:28 08/12/24 21:30 08/12/24 21:31 Temperature Pulse Rate 89 88 91 Pulse Rate [Right Pulse Oximeter] Respiratory Rate Blood Pressure 125/72 126/70 Blood Pressure [Ri ght Upper Arm] Pulse Oximetry 95 98 98 Oxygen Delivery Me thod 08/12/24 21:36 08/12/24 21:41 08/12/24 21:45 Temperature Pulse Rate 90 92 92 Pulse Rate [Right Pulse Oximeter] Respiratory Rate Blood Pressure 114/61 117/60 Blood Pressure [Ri ght Upper Arm] Pulse Oximetry 94 93 96 Oxygen Delivery Me thod 08/12/24 21:47 08/12/24 21:51 08/12/24 21:56 Temperature Pulse Rate 92 93 92 Pulse Rate [Right Pulse Oximeter] Respiratory Rate Blood Pressure 121/75 123/73 117/69 Blood Pressure [Ri ght Upper Arm] Pulse Oximetry 97 96 97 Oxygen Delivery Me thod 08/12/24 22:00 08/12/24 22:01 08/12/24 22:06 Temperature Pulse Rate 93 94 94 Pulse Rate [Right Pulse Oximeter] Respiratory Rate Blood Pressure 120/73 125/76 Blood Pressure [Ri ght Upper Arm] Pulse Oximetry 96 98 96 Oxygen Delivery Me thod 08/12/24 22:12 08/12/24 22:15 08/12/24 22:17 Temperature Pulse Rate 98 97 102 H Pulse Rate [Right Pulse Oximeter] Respiratory Rate Blood Pressure 121/103 H 124/77 Blood Pressure [Ri ght Upper Arm] Pulse Oximetry 92 Oxygen Delivery Me thod 08/12/24 22:21 08/12/24 22:26 08/12/24 22:30 Temperature Pulse Rate 104 H 97 98 Pulse Rate [Right Pulse Oximeter] Respiratory Rate Blood Pressure 117/72 118/77 Blood Pressure [Ri ght Upper Arm] Pulse Oximetry 97 Oxygen Delivery Me thod 08/12/24 22:31 08/12/24 22:37 08/12/24 22:42 Temperature Pulse Rate 99 91 Pulse Rate [Right Pulse Oximeter] Respiratory Rate Blood Pressure 128/82 122/78 130/78 Blood Pressure [Ri ght Upper Arm] Pulse Oximetry Oxygen Delivery Me thod 08/12/24 22:46 08/12/24 22:47 08/12/24 22:51 Temperature Pulse Rate 93 93 92 Pulse Rate [Right Pulse Oximeter] Respiratory Rate Blood Pressure 124/74 121/71 Blood Pressure [Ri ght Upper Arm] Pulse Oximetry 98 99 100 Oxygen Delivery Me thod 08/12/24 22:56 08/12/24 23:00 08/12/24 23:01 Temperature Pulse Rate 91 92 94 Pulse Rate [Right Pulse Oximeter] Respiratory Rate Blood Pressure 121/75 119/78 Blood Pressure [Ri ght Upper Arm] Pulse Oximetry 100 96 Oxygen Delivery Me thod 08/12/24 23:06 08/12/24 23:12 Temperature Pulse Rate 97 99 Pulse Rate [Right Pulse Oximeter] Respiratory Rate Blood Pressure 133/79 131/77 Blood Pressure [Ri ght Upper Arm] Pulse Oximetry 99 97 Oxygen Delivery Me thod Course Vital Signs Vital signs: Initial Vital Signs Temperature 97.8 F 08/12/24 16:05 Temperature Source Temporal Artery Scan 08/12/24 16:05 Pulse Rate 102 H 08/12/24 16:05 Respiratory Rate 18 08/12/24 16:05 Blood Pressure 101/70 08/12/24 16:05 Blood Pressure Mean 80 08/12/24 16:05 Blood Pressure Position Sitting 08/12/24 16:05 Pulse Oximetry 94 08/12/24 16:05 Oxygen Delivery Method Room Air 08/12/24 16:05 Vital Signs Temperature 97.8 F 08/12/24 16:05 Pulse Rate 102 H 08/12/24 16:05 Respiratory Rate 18 08/12/24 16:05 Blood Pressure 101/70 08/12/24 16:05 Pulse Oximetry 94 08/12/24 16:05 Oxygen Delivery Method Room Air 08/12/24 16:05 Temperature 97.8 F 08/12/24 16:05 Pulse Rate 99 08/12/24 23:12 Respiratory Rate 18 08/12/24 16:05 Blood Pressure 131/77 08/12/24 23:12 Pulse Oximetry 97 08/12/24 23:12 Oxygen Delivery Method Room Air 08/12/24 16:05 Medications Administered Medications: Discontinued Medications Generic Name Dose Route Start Last Admin Trade Name Collinsq PRN Reason Stop Dose Admin Fentanyl 25 mcg 08/12/24 19:56 08/12/24 21:28 Fentanyl 100 Mcg/2 Ml Inj IVP 08/12/24 19:57 25 mcg ONCE ONE Administration Sodium Chloride 1,000 mls @ 1,000 mls/hr 08/12/24 19:45 08/12/24 23:39 0.9 % Sodium Chloride 1000 Ml IV 08/12/24 20:44 Infused .Q1H GAYLA Infusion Ceftriaxone Sodium 1 gm/ 100 mls @ 200 mls/hr 08/12/24 22:44 08/12/24 23:32 Sodium Chloride IVPB 08/12/24 22:45 200 mls/hr ONCE ONE Administration Ondansetron HCl 4 mg 08/12/24 19:35 08/12/24 21:27 Ondansetron 2 Mg/Ml Inj IVP 08/12/24 19:36 4 mg ONCE ONE Administration Medical Decision Making [facility] Narrative Medical decision making narrative: 44-year-old female presenting to the ER today with her stepmother and her biolo gical father for evaluation of symptoms including diarrhea ongoing for the past few days leading to a single episode of nonbloody vomiting this morning with progressive abdominal pain and distension throughout the day with inability to take anything by mouth. She had a similar presentation a couple weeks ago with CT scan done here in [place] that was read show a small bowel obstruction. Because of her medical complexity she was transferred to [facility] where she was admitted. It sounds like her symptoms resolved so with supportive care and she did not require surgery. Her parents indicate that the surgeons at [facility] were not convinced this was a true mechanical small-bowel obstruction any way. Sounds like the ultimate diagnosis is little bit unclear after her last hospitaliza tion. In terms of her abdominal symptoms, repeat CT scan today does show fairly dilated loops of small bowel and is read by Radiology show a recurrent small- bowel obstruction. Fortunately is no sign that this is a close loop obstruction. There is no free air or pneumatosis intestinalis. At this point is not an immediate surgical emergency. I did discussed with our surgeons here in [place]. They again advised transfer to a higher level of care given her complexity. In particular, surgeons are concerned that she may have a complex course since she also has a left adnexal mass. If she does have surgery, she likely would need a higher level anesthesiology and ICU for her postop care. Lactic acid is normal. With her diarrhea consider other explanations. Stool studies are negative for C diff. Discussed this with the patient's parents. They are agreeable to transfer. Unfortunately the only available [place] facilities at [facility] any [place]. Parents agree. Discussed with the hospitalist from [facility]. He accepts the patient for transfer. He requests that we try to start an NG tube for this patient because of the bowel obstruction. This was discussed with the patient parents. They are politely declining because during her last admission for bowel obstruction they attempted to place NG tube for the patient. They were able to get it down but she forcibly removed within a couple of minutes. Likely would not be successful this time. Hospitalist from [place] also request antibiotics with the abnormal lung findings and potential for aspiration. These are started after blood cultures are drawn. Patient remained hemodynamically stable while here in the ER. She is currently awaiting transport to [facility] [place]. Discussed with the my partner Dr. Noe who will oversee her care prior to transfer. Lab Data Labs: Lab Results 08/12/24 08/12/24 08/12/24 Range/Units 20:20 20:30 22:20 WBC 11.78 H (4.50-11.00) K/uL RBC 5.89 H (4.00-5.20) m/uL Hgb 17.4 H (12.0-16.0) gm/dL Hct 54.4 H (33.0-51.0) % MCV 92 (80-100) fL MCH 30 (26-34) pg MCHC 32 (32-36) gm/dL RDW Coeff of Calvin 14.7 (11.5-15.5) % Plt Count 183 (140-440) K/uL Neut % (Auto) 67.6 (42.0-72.0) % Lymph % (Auto) 20.5 (20-44) % [place] % (Auto) 9.9 (0.0-11.0) % Eos % (Auto) 1.4 (0.0-7.0) % Baso % (Auto) 0.3 (0.0-3.0) % Neut # (Auto) 8.00 H (1.7-7.0) K/uL Lymph # (Auto) 2.40 (0.90-2.90) K/uL [place] # (Auto) 1.20 H (0.00-0.90) K/UL Eos # (Auto) 0.20 (0.00-0.50) K/uL Baso # (Auto) 0.00 (0.00-0.30) K/uL Abs Immat Gran (auto) 0.00 (0.00-0.30) K/uL Imm/Tot Granulo (auto) 0.3 % Sodium 140 (135-149) mmol/L Potassium 4.5 (3.6-5.1) mmol/L Chloride 101 (96-114) mmol/L Carbon Dioxide 26 (20-32) mmol/L Anion Gap 13 (7-15) mEq/L BUN 14 (5-24) mg/dL Creatinine 0.4 L (0.5-1.5) mg/dL Estimated Creat Clear 177.36 Estimated GFR 125 ml/min Glucose 117 H (60-115) mg/dL Lactate 1.4 (0.5-1.9) mmol/L Calcium 9.8 (8.4-10.6) mg/dL Total Bilirubin 1.3 (0.1-1.5) mg/dL AST 47 H (12-35) U/L ALT 54 H (4-35) U/L Alkaline Phosphatase 138 (40-150) U/L Total Protein 8.7 H (6.0-8.3) g/dL Albumin 4.7 (3.3-5.0) g/dL Lipase 48 (23-300) U/L Urine Color Yellow (Yellow) Urine Appearance Clear (Clear) Urine pH 5.0 (5.0-8.5) Ur Specific [place] <= 1.005 (1.000-1.030) Urine Protein Negative (Negative) Urine Glucose (UA) Negative (Negative) Urine Ketones Negative (Negative) Urine Blood Trace-intact A (Negative) Urine Nitrite Negative (Negative) Urine Bilirubin Negative (Negative) Urine Urobilinogen 0.2 (0.2-1.0) Ur Leukocyte Esterase Negative (Negative) Urine RBC 0-2 (0-2) Urine WBC 0-2 (0-5) Ur Squamous Epith Cells Few (None-Few) Urine Bacteria None (None) Stl C. diff Tox B Gene Negative (Negative) Stl C. diff [id number] PRESUMPTIVE NEGATIVE (Negative) Imaging Data CT scan - abdomen: Attestation: I have reviewed the pertinent imaging results. Radiologist's impression: IMPRESSION: Multiple dilated loops of small bowel suggestive of acute small bowel obstruction. No pneumatosis intestinalis, portal venous gas, or pneumoperitoneum. Redemonstration of 6.6 centimeter left adnexal soft tissue mass. This could be further evaluated with outpatient nonemergent pelvic MRI if clinically necessary. CT scan - chest: Attestation: I have reviewed the pertinent imaging results. Radiologist's impression: IMPRESSION: No pulmonary embolism. Hypoventilatory changes with diffuse peribronchial thickening with mosaic attenuation, likely related to small vessel/airway disease, including bronchitis and/or pulmonary edema. Redemonstration of 2.0 centimeter left lower lobe pulmonary nodule. Discharge Plan Discharge Clinical Impression: Small bowel obstruction, Adnexal mass, Left lower lobe pulmonary nodule Patient Disposition: Xfer Other Prescriptions: No Action (DME) Fitted Briefs Medium Misc See Rx Instructions .Route Qty: 40 12RF Rx Instructions: As directed Stand Alone Forms: [employer] Info Instructions
--- NOTE | 2024-08-12 19:35 | CRLHL7_ITS ---
For Patients: As a result of the Century Cures Act, medical imaging exams and procedure reports are released immediately into your electronic medical record. You may view this report before your referring provider. If you have questions, please contact your health care provider. INDICATION: Vomiting. Diarrhea. Abdominal distention. TECHNIQUE: CT abdomen and pelvis acquired with 95 cc Omnipaque 350 IV contrast. COMPARISON: July 28, 2024. FINDINGS: Lower chest: Please refer to same day CT chest. Liver: Unremarkable. Normal in size and attenuation. No suspicious masses. Gallbladder and bile ducts: Cholelithiasis without acute cholecystitis. Pancreas: Unremarkable. No mass or inflammation. Spleen: Unremarkable. Normal in size. No masses. Adrenal glands: Unremarkable. No nodules. Kidneys: Tiny cortical hypodensities, too small to characterize. No suspicious masses, stones, or hydronephrosis. GI tract: Multiple dilated loops of small bowel normal appendix. Vasculature: Abdominal aorta is normal in caliber. Mesenteric arteries are patent. Lymph nodes: No lymphadenopathy. Peritoneum/Abdominal Wall: Unremarkable. No sign of mass or infiltration. No free air or significant free fluid. Pelvis: Re-demonstration of 6.6 centimeter left adnexal soft tissue mass. Bones: Unremarkable for age. IMPRESSION: Multiple dilated loops of small bowel suggestive of acute small bowel obstruction. No pneumatosis intestinalis, portal venous gas, or pneumoperitoneum. Redemonstration of 6.6 centimeter left adnexal soft tissue mass. This could be further evaluated with outpatient nonemergent pelvic MRI if clinically necessary. Please note that all CT scans at this facility use dose modulation, iterative reconstruction, and/or weight-based dosing when appropriate to reduce radiation dose to as low as reasonably achievable. Dictated by Yann Lofton MD @ 08/12/2024 9:42:49 PM (Electronically Signed)
[2024-08-12 20:29] LABS: Lactate* 1.4 mmol/L (0.5-1.9)
[2024-08-12 20:30] LABS: Basophils Percent Auto 0.3 % (0.0-3.0); Eosinophils Percent Auto 1.4 % (0.0-7.0); Hematocrit 54.4 % (33.0-51.0); Hemoglobin* 17.4 gm/dL (12.0-16.0); Immature Granulocytes Pct Auto 0.3 %; Lymphocytes Percent Auto 20.5 % (20-44); Mean Corpuscular HGB Conc 32 gm/dL (32-36); Mean Corpuscular Hemoglobin 30 pg (26-34); Mean Corpuscular Volume 92 fL (80-100); Monocytes Percent Auto 9.9 % (0.0-11.0); Neutrophils Percent Auto 67.6 % (42.0-72.0); Platelet Count* 183 K/uL (140-440); RDW Coefficient of Variation % 14.7 % (11.5-15.5); Red Blood Count 5.89 m/uL (4.00-5.20); White Blood Count* 11.78 K/uL (4.50-11.00)
[2024-08-12 20:35] LABS: Slide Review Reflex No
[2024-08-12 20:57] LABS: Albumin* 4.7 g/dL (3.3-5.0); Chloride* 101 mmol/L (96-114); Potassium* 4.5 mmol/L (3.6-5.1); Sodium* 140 mmol/L (135-149)
[2024-08-12 21:00] LABS: Alanine Aminotransferase* 54 U/L (4-35); Alkaline Phosphatase* 138 U/L (40-150); Anion Gap 13 mEq/L (7-15); Aspartate Amino Transferase* 47 U/L (12-35); Bilirubin Total* 1.3 mg/dL (0.1-1.5); Blood Urea Nitrogen* 14 mg/dL (5-24); Carbon Dioxide* 26 mmol/L (20-32); Creatinine* 0.4 mg/dL (0.5-1.5); Est. Creatinine Clearance* 177.36; Estimated Glomerular Filt Rate 125 ml/min; Lipase* 48 U/L (23-300); Total Protein* 8.7 g/dL (6.0-8.3)
[2024-08-12 21:01] LABS: Calcium* 9.8 mg/dL (8.4-10.6); Glucose* 117 mg/dL (60-115)
[2024-08-12] MEDS: ONDANSETRON 2 MG/ML inj 4 MG IVP (21:27)
[2024-08-12] MEDS: fentaNYL 100 MCG/2 ML inj 25 MCG IVP (21:28)
[2024-08-12] MEDS: 0.9 % SODIUM CHLORIDE 1000 ml 1,000 ML IV (21:30)
[2024-08-12 22:28] LABS: Appearance Urine Clear (Clear); Color Urine Yellow (Yellow)
[2024-08-12 22:29] LABS: Bilirubin Urine Negative (Negative); Blood Urine Trace-intact (Negative); Glucose Urine Negative (Negative); Ketones Urine Negative (Negative); Leukocyte Esterase Urine Negative (Negative); Nitrite Urine Negative (Negative); Protein Urine Negative (Negative); Specific Gravity Urine <= 1.005 (1.000-1.030); Urobilinogen Urine 0.2 (0.2-1.0)
[2024-08-12 22:37] LABS: RBC Urine 0-2 (0-2); Squamous Epithelial Cell Urine Few (None-Few); WBC Urine 0-2 (0-5)
[2024-08-12 22:39] LABS: C.Difficile Negative (Negative); CDIFFEPI 027 PRESUMPTIVE NEGATIVE (Negative)
[2024-08-12] MEDS: cefTRIAXone 1 GM in 0.9 % SODIUM CHLORIDE Mini-bag 100 ML IVPB (23:32)
[2024-08-12] MEDS: AZITHROMYCIN 500 MG in 0.9 % SODIUM CHLORIDE 250 ml 250 ML 255 MG IVPB (23:51)
[2024-08-13] VITALS (13 sets, daily range): BP systolic 102–120; BP diastolic 61–79; PULSE 78–102; O2SAT 92–100
== END 2024-08-13 01:16 | disposition other institution (70) ==
PROVIDERS: Emergency Provider Emergency Medicine; PCP Family Medicine
DX: K56.609 Unspecified intestinal obstruction, unspecified as to partial versus complete obstruction (principal); R91.1 Solitary pulmonary nodule; R19.09 Other intra-abdominal and pelvic swelling, mass and lump
CPT/HCPCS: 36415; 71275; 74177; 80053; 81001; 83605; 83690; 84703; 85025; 87040; 87045; 87046; 87427; 87493; 96365; 96366; 96375; 99283; 99285; J0456; J0696; J2405; J3010; J7030; J7050; Q9967

== ENCOUNTER 2024-08-13 01:07 | Outpatient (CLI) | payer MEDICARE, MEDICAID, SELFPAY | END 2024-08-13 01:08 | disposition home or self-care (01) | PROVIDERS: PCP Family Medicine; Visit Provider Student in an Organized Health Care Education/Training Program | DX: K56.609 Unspecified intestinal obstruction, unspecified as to partial versus complete obstruction (principal) | CPT/HCPCS: A0425; A0428 ==